=== PATIENT | female | born 1980 | race Two or more races ===

== ENCOUNTER 2024-07-29 01:43 | Inpatient (IN) | payer MEDICAID, SELFPAY ==
[2024-07-29] VITALS (40 sets, daily range): BP systolic 129–196; BP diastolic 80–141; PULSE 101–138; RESP 13–100; TEMP 34.7–37.3; O2SAT 99–100; BMI 23.1
--- NOTE | 2024-07-29 01:54 | EDNOTE_ITS ---
ED Weakness RME/HPI General Chief complaint: Dizziness Stated complaint: DIZZINESS, UNABLE TO SLEEP X1 WEEKS Time Seen by Provider: 07/29/24 03:04 Arrival date/time: 07/29/24 01:43 RME / HPI RME / HPI Narrative: Dr. Rivers?s Main ED Evaluation: 44yo female with a history of prediabetes, not on any medications BIB her presents to the ED for a chief complaint of generalized weakness x 2 days. Patient states she has been unable to keep anything down for the last 2 days. Patient reports having associated body aches. states the patient initially did not want to come in, but ultimately did after she continued to get more weak. Patient denies any fever, chills, diarrhea or any other associated symptoms. Denies any tobacco, alcohol or illicit drug use. NKA. Related Data Home Medications ?Medication ?Instructions ?Recorded ?Confirmed No Known Home Medications 07/29/2407/11 Allergies Allergy/AdvReac Type Severity Reaction Status Date / Time No Known Allergies Allergy Verified 07/29/24 01:45 Review of Systems Review of Systems Systems Reviewed: All systems reviewed, normal except as documented Past Medical History Past Medical History NEUROLOGIC: Negative Neurological Disorders CARDIAC: Negative Cardiac Disorders or Congestive Heart Failure RESPIRATORY: Negative Chronic Obstructive Pulmonary Disease (COPD) GASTROINTESTINAL: Negative Gastrointestinal Disorders, Hepatitis or Colorectal Cancer GENITOURINARY: Negative Genitourinary Disorders, Renal Disease or Prostate Cancer REPRODUCTIVE: Negative Breast Cancer or Testicular Cancer MUSCULOSKELETAL: Negative Musculoskeletal Disorders or Bone Cancer ENDOCRINE: Negative Endocrine Disorders, Diabetes Mellitus Type 1 or Diabetes Mellitus Type 2 HEMATOLOGIC: Negative Blood Disorders OTHER HISTORY: Negative Hospitalization, Autoimmune Disease, Down Syndrome, Developmental Delay, Shingles, Falls, Blood Transfusions, Blood Transfusion Reaction, Anesthesia Reactions, Organ Transplant, Chemotherapy, Radiation Th erapy, Hyperbaric Therapy, MRSA, VRSA, Vancomycin-Resistant Enterococci, Human Immunodeficiency Virus (HIV), Chicken Pox, Measles, Mumps, Rubella (Vietnamese Measles), Pertussis, Clostridium Difficile, Breast Cancer, Cervical Cancer, Colorectal Cancer, Lung Cancer, Ovarian Cancer, Prostate Cancer or Testicular Cancer Family History FAMILY HISTORY: Negative Family Psychiatric Problems, Family Respiratory Disorders, Family Cardiac Disorders, Family Gastrointestinal Problems, Family Cancer, Family Surgery or Family Anesthesia Reaction Surgical History SURGICAL: Negative Section or Organ Transplant Social History SMOKING STATUS: Never smoker SECOND HAND EXPOSURE: No ED Exam Narrative Physical exam: GEN. APPEARANCE: The patient is alert awake oriented X-3 in acute distress, tachypneic, uncomfortable VITALS: All vitals were reviewed and the pulse ox is % on room air which is normal according to my interpretation. HEENT: Normocephalic, atraumatic. Pupils are equal and reactive. Oral mucosa is very dry, has sweet odor on breath. Patent Nares NECK: Supple, nontender, no thyromegaly, no meningismus, no JVD CHEST: Symmetrical, atraumatic, and with equal expansion , Nontender on palpation no deformity and no crepitus. CARDIOVASCULAR: Heart regular rhythm no murmur or gallop rub or extra beats. LUNGS: Clear to auscultation bilaterally with symmetrical chest rise. No laboring tachypnea or wheezing. No intercostal subcostal retraction. No rales and no rhonchi. ABDOMEN: Soft, flat, nontender to palpation, no guarding or rebound tenderness. There are no abnormal masses palpated. Active and normal bowel sounds. EXTREMITIES: Nontender. No edema. No cyanosis. Patient is able to move all 4 extremities well, with full ROM and good CSM. SKIN: Warm and dry, no jaundice or rashes noted. NEURO: Patient is DOHERTY x 4, Cranial nerves II through XII grossly intact. There is no focal neurologic deficits noted. GCS is 15 however slow to respond, PNS and OUTBOARD MOTOR TESTER appear grossly intact. PSYCHIATRIC: Patient is in normal mood and affect. Course Course Course Narrative: CXR is ordered for determining the etiology of weakness. Quality Measures none Orders Category Date Time Status Bedside Blood Glucose Q1H Care 07/29/24 03:28 Active Bleacher Kraft Pulp Q4H Care 07/29/24 03:28 Active Bleacher Kraft Pulp Q4H START 00 Care 07/29/24 02:47 Active DKA Protocol QSHIFT Care 07/29/24 03:28 Active Fingerstick [Bedside Blood Glucose] Q1HR Care 07/29/24 03:10 Active Del Castillo [Urinary Catheter] QS Care 07/29/24 02:05 Active IV [Insert IV] NOW Care 07/29/24 02:05 Active Initiate Warming Therapy NOW Care 07/29/24 04:20 Active Intake and Output Q1H Care 07/29/24 03:30 Ordered Intake and Output Q1H Care 07/29/24 04:30 Ordered Intake and Output Q1H Care 07/29/24 05:30 Ordered Intake and Output Q1H Care 07/29/24 06:30 Ordered Intake and Output Q1H Care 07/29/24 07:30 Ordered Intake and Output Q1H Care 07/29/24 08:30 Ordered Intake and Output Q1H Care 07/29/24 09:30 Ordered Intake and Output Q1H Care 07/29/24 10:30 Ordered Intake and Output Q1H Care 07/29/24 11:30 Ordered Intake and Output Q1H Care 07/29/24 12:30 Ordered Intake and Output Q1H Care 07/29/24 13:30 Ordered Intake and Output Q1H Care 07/29/24 14:30 Ordered Intake and Output Q1H Care 07/29/24 15:30 Ordered Intake and Output Q1H Care 07/29/24 16:30 Ordered Intake and Output Q1H Care 07/29/24 17:30 Ordered Intake and Output Q1H Care 07/29/24 18:30 Ordered Intake and Output Q1H Care 07/29/24 19:30 Ordered Intake and Output Q1H Care 07/29/24 20:30 Ordered Intake and Output Q1H Care 07/29/24 21:30 Ordered Intake and Output Q1H Care 07/29/24 22:30 Ordered Intake and Output Q1H Care 07/29/24 23:30 Ordered Notify provider NEEDED Care 07/29/24 03:28 Active Strict Intake and Output Routine Care 07/29/24 02:47 Ordered Referral Registered Dietitian Routine Cons 07/29/24 03:[address] head/brain wo con Routine Exams 07/29/24 04:58 Ordered CXR [XR chest 1V] Stat Exams 07/29/24 01:59 Taken US renal BI Stat Exams 07/29/24 01:59 Taken Beta Hydroxybutyrate Stat Lab 07/29/24 02:10 Completed Blood Culture (Lab) Stat Lab 07/29/24 02:58 Received CBC Stat Lab 07/29/24 02:10 Completed CMP [Comprehensive Metabolic Panel] Stat Lab 07/29/24 02:10 Completed Drug Screen,Urine Stat Lab 07/29/24 02:08 Completed HCG,Qualitative Serum Stat Lab 07/29/24 02:10 Completed Lactate (Lactic Acid) Stat Lab 07/29/24 02:10 Results Lipase Stat Lab 07/29/24 02:10 Completed PAM [Alcohol, Blood Medical] Stat Lab 07/29/24 02:10 Completed Path Review Blood Smear Stat Lab 07/29/24 02:10 Completed Procalcitonin Stat Lab 07/29/24 02:10 Completed Renal Function Panel Q4 Lab 07/29/24 07:30 Ordered Renal Function Panel Q4 Lab 07/29/24 11:30 Ordered Renal Function Panel Q4 Lab 07/29/24 15:30 Ordered Renal Function Panel Q4 Lab 07/29/24 19:30 Ordered Renal Function Panel Q4 Lab 07/29/24 23:30 Ordered Renal Function Panel Q4 Lab 07/30/24 03:30 Ordered Renal Function Panel Q4 Lab 07/30/24 07:30 Ordered Renal Function Panel Q4 Lab 07/30/24 11:30 Ordered Renal Function Panel Q4 Lab 07/30/24 15:30 Ordered Renal Function Panel Q4 Lab 07/30/24 19:30 Ordered Renal Function Panel Q4 Lab 07/30/24 23:30 Ordered Renal Function Panel Q Lab 07/31/24 03:30 Ordered Troponin I Stat Lab 07/29/24 02:10 Completed UA [Urinalysis] Stat Lab 07/29/24 02:08 Completed VBG [Venous Blood Gas] Stat Lab 07/29/24 02:10 Completed VBG [Venous Blood Gas] Stat Lab 07/29/24 04:37 Completed Dextrose 5%-Lactated Ringers [D5-Lr] 1,000 ml Med 07/29/24 03:28 Active Pot Chl Additive [KCl Additive] 40 meq IV 250 mls/hr Dextrose 5%-Lactated Ringers [D5-Lr] 1,000 ml Med 07/29/24 03:28 Active IV 250 mls/hr Dextrose 50% Syr [D50w Syringe Abboject] Med 07/29/24 03:28 Active 25 ml IV [id number] PRN Dextrose 50% Syr [D50w Syringe Abboject] Med 07/29/24 02:49 Discontinued 50 ml IVP X1 ONE Dextrose 50% Syr [D50w Syringe Abboject] Med 07/29/24 02:49 Discontinued 50 ml IVP X1 ONE KCL 20 mEq/L in D5-LR Med 07/29/24 03:28 Active 20 meq in 1,000 ml IV 250 mls/hr Magnesium Sulfate 2 GM Ivpb [Magnesium Sulfate Ivpb] [facility] 07/29/24 03:28 Active 2 gm in 50 ml IV 25 mls/hr Ondansetron Inj [Zofran Inj] [facility] 07/29/24 01:56 Discontinued 4 mg IV X1 ONE POT PHOS 15 mMol in NS 250 ML [Pot Phos 15 mMol in NS Med 07/29/24 03:28 Active 250 ml] 15 mmol in 250 ml IV PRN POTASSIUM CHL 10 mEq IVPB [Kcl Ivpb] [facility] 07/29/24 03:28 Active 10 meq in 100 ml IV 100 mls/hr POTASSIUM CHL 10 mEq IVPB [Kcl Ivpb] [facility] 07/29/24 03:28 Active 10 meq in 100 ml IV PRN Pre-Mixed [Pre-mixed Bag] [address] [facility] 07/29/24 03:28 Active Insulin Reg 100 Units/100 ml [Myxredlin] 100 unit IV 0.1 unit/kg/hr Ringers Lactated 1000 ml [Lactated Ringers] 1,[address] [facility] 07/29/24 03:28 Active Pot Chl Additive [KCl Additive] 20 meq IV 250 mls/hr Ringers Lactated 1000 ml [Lactated Ringers] 1,[address] [facility] 07/29/24 03:28 Active Pot Chl Additive [KCl Additive] 40 meq IV 250 mls/hr Ringers Lactated 1000 ml [Lactated Ringers] 1,[address] [facility] 07/29/24 03:28 Active IV 250 mls/hr Ringers Lactated 1000 ml [Lactated Ringers] 1,[address] [facility] 07/29/24 01:54 Discontinued IV 999 mls/hr Ringers Lactated 1000 ml [Lactated Ringers] 1,[address] [facility] 07/29/24 01:57 Discontinued IV 999 mls/hr Ringers Lactated 1000 ml [Lactated Ringers] 1,[address] [facility] 07/29/24 02:47 D iscontinued IV 999 mls/hr Ringers Lactated 1000 ml [Lactated Ringers] 1,[address] [facility] 07/29/24 02:52 Discontinued IV 999 mls/hr Ringers Lactated 1000 ml [Lactated Ringers] 1,[address] [facility] 07/29/24 03:05 Discontinued IV 999 mls/hr Ringers Lactated 1000 ml [Lactated Ringers] 1,[address] [facility] 07/29/24 04:07 Discontinued IV 999 mls/hr Sodium Bicarb 8.4% 50ml Vial* Med 07/29/24 02:50 Discontinued 50 meq IV X1 ONE Sodium Bicarb 8.4% 50ml Vial* Med 07/29/24 02:51 Discontinued 50 meq IV X1 ONE Sodium Bicarb 8.4% SYR Med 07/29/24 02:45 Discontinued 100 ml IV .STK-MED ONE Sodium Bicarb 8.4% SYR Med 07/29/24 02:53 Discontinued 100 ml IV X1 ONE Sodium Bicarb 8.4% SYR Med 07/29/24 03:28 Active 50 ml IV Q4HR PRN Sodium Chloride 0.9% 1000 ml [Ns] 1,000 ml Med 07/29/24 04:44 Discontinued IV 999 mls/hr Sodium Chloride 0.9% 250 ml [Ns] 250 ml Med 07/29/24 03:28 Active Sod Phos Additive [NaPhos Additive] 15 mmol IV 62.5 mls/hr Vancomycin Inj 1,000 mg Med 07/29/24 04:42 Active Sodium Chloride 0.9% 250 ml [Ns] 250 ml IV X1 cefTRIAXone/D5w 1gm IV premix [Rocephin/D5w 1gm IV Med 07/29/24 02:48 Disc ontinued premix] 1 gm in 50 ml IV NOW cefTRIAXone/D5w 1gm IV premix [Rocephin/D5w 1gm IV Med 07/29/24 04:57 Discontinued premix] 1 gm in 50 ml IV X1 metroNIDAZOLE/NS 500 MG IVPB [Flagyl 500 mg IV] Med 07/29/24 04:43 Discontinued 500 mg in 100 ml IV X1 Vital Signs Vital signs: Vital Signs Temperature 98.0 F 07/29/24 02:03 Pulse Rate 130 H 07/29/24 02:03 Respiratory Rate 29 H 07/29/24 02:03 Blood Pressure 170/115 H 07/29/24 02:03 Pulse Oximetry (%) 99 07/29/24 02:03 Weakness MDM Narrative MDM Narrative:: Scribe Attestation: 07/29/24 - I, Loyda Chaney am scribing for and in the presence of Dr. Rivers. Blood sugar is greater than 600 on ED arrival. Labs, 2L LR, and Zofran ordered. Concern for possible DKA, HHS, acute infection metabolic disturbance. Patient without any focal neurodeficits, less likely acute CVA, meningitis encephalitis. Patient with chest discomfort, concern for pneumonia viral syndrome. Also concern for acute renal failure. Ordered labs sepsis fluids broad-spectrum and biotics renal ultrasound and medications for symptom relief. 0247: Sepsis alert initiated. Orders made at this time are congruent with ED Adult Sepsis Order List. Re-evaluation is to be completed. LR started at 0211. 0332: Sepsis reassessment performed consisting of lab review, vitals, physical exam including auscultation of heart, lungs, and visual evaluation of capillary refills, mucosal membranes and extremities. 0333: Attempted to call the hospitalist, Dr. Maravilla, without success. 0338: Discussed case with the resident physician, attending Dr. Maravilla from Hospitalist service regarding admission. Discussed patients ED course, exam findings, labs, and radiology results. The Hospitalist agrees to accept the patient for admission. 0433: Patient is awake, alert, and mentating well. She is communicating more appropriately, GCS 15. She is still tachypneic in the mid 20s. Insulin is going in. 0505: Patient continues to be awake, alert, and mentating well. Patient's color has improved, respiratory rate in the mid 20s. Repeat blood gas, patient pH slightly improved, patient is on the insulin drip, clinically continues to improve, states that she feels improvement. Patient was hypothermic, Franny hugger placed. Patient admitted to the ICU for management of DKA. Patient data External records reviewed:: [facility] previous records (Per chart review, patient has no relevant previous ED visits.) Clinical information provided by:: patient and spouse Social determinants that could affect healthcare access:: none Patient has the following chronic illnesses:: none How is presenting disease/condition affected by chronic disease/condition?: no chronic disease Evaluation data The following diagnostics were reviewed and interpreted by me:: lab results, radiology exam(s) and EKG tracing(s) Lab and/or radiology exams considered but not ordered:: none Interpretation Summary: WBC elevated 36.5, VBG shows low pH of 6.95, pCO2 low 12; Beta Hydroxybutyrate 3.6, UA shows 1+ protein, 4+ glucose, 4+ ketones, positive leukocyte esterase, 22 WBCs; UDS negative, Blood Alcohol negative, Creatinine 2.3, BUN 60, Lactic Acid 3.5, Sodium 132, CO2 less than 10, Troponin normal, HCG negative. CXR shows no infiltrates, no pneumothorax, no widened mediastinum, according to my interpretation. EKG done at 0158, sinus tachycardia, rate of 131, normal intervals, wandering baseline, no acute ischemia, according to my interpretation. Telerad Preliminary Report Draft Patient: ALTA MENDIOLA Record#: [id number] Birthdate: 1980 Age/Sex: 44 / F Location: [facility] Attending Dr: Ordering Physician: Date of Service: Procedure(s): Accession Number(s): cc: ~ Renal/Retroperitoneal ultrasound. July 29, 2024 0209 hours Clinical history: Kidneys and bladder. Technique: Duplex scan of the bilateral renal arterial and venous tree was performed utilizing 2D grayscale imaging, Doppler spectral analysis and color flow. Comparison: No prior study is available for comparison. Findings: The patient is breathing heavily and not coherent. Right: The right kidney measures 11.2 x 5 x 6.5 cm with cortical thickness of 1.8 cm and is unremarkable. There is no hydronephrosis or renal calculus. The corticomedullary differentiation is maintained. Left: The left kidney measures 13.1 x 6.8 x 6.1 cm with cortical thickness of 2.2 cm and is unremarkable. There is no hydronephrosis or renal calculus. The corticomedullary differentiation is maintained. A Del Castillo catheter is seen in the inferior portion of urinary bladder. The prevoid bladder volume is 131.53 mL. The patient is unable to void. Bilateral ureteric jets are demonstrated. Impression: No evidence of renal calculus or hydronephrosis. Other findings as described above. Report Electronically Signed By: Theodora Reis 07/29/2024 3:30:03 AM Medications / Prescriptions Medications or Prescriptions considered but not ordered:: none Medication administrations:: Medication Administration History Acetaminophen (Acetaminophen 325 Mg Tablet) 650 mg PO Q4HR PRN PRN Reason: PAIN SCALE 1-3 (mild Stop: 08/28/24 04:59 Acetaminophen (Acetaminophen Supp 650 Mg Supp) 650 mg WV Q4HR PRN PRN Reason: PAIN SCALE 1-3 (mild Stop: 08/28/24 04:59 Dextrose (Dextrose 50%-Water Inj 50 Ml Syringe) 25 ml IV PRNMRX1 PRN PRN Reason: Blood Sugar - Low Dextrose (Dextrose 50%-Water Inj 50 Ml Syringe) 25 ml IV PRNMRX1 PRN PRN Reason: Blood Sugar - Low Heparin Sodium (Porcine) (Heparin Sod Inj 5000 Unit/Ml Vial) 5,000 unit SC Q8HR EDE Stop: 08/12/24 05:59 Potassium Chloride (Kcl Ivpb) 10 meq in 100 mls @ 100 mls/hr IV .Q1H PRN PRN Reason: IF POTASSIUM LESS THAN 3.3 Stop: 08/28/24 03:27 Magnesium Sulfate (Magnesium Sulfate Ivpb) 2 gm in 50 mls @ 25 mls/hr IV .Q2H PRN PRN Reason: PER DKA PROTOCOL Stop: 08/28/24 03:27 Insulin Human Regular 100 unit (/ IV Miscellaneous Supplies) 100 mls @ 6.622 mls/hr IV .Q15H7M PRN; Protocol PRN Reason: PER PROTOCOL Stop: 08/28/24 03:27 Last Titration: 07/29/24 05:02 Dose: 0.1 unit/kg/hr, 6.622 mls/hr Documented By: CVL Co-signed By: JULIO Admin: 07/29/24 04:08 Dose: 0.1 unit/kg/hr, 6.622 mls/hr Documented By: CVL Co-signed By: ALVIN Dextrose/Lactated Ringer's (D5-Lr) 1,000 mls @ 250 mls/hr IV .Q4H PRN PRN Reason: PER PROTOCOL Stop: 08/28/24 03:27 Lactated Ringer's (Lactated Ringers) 1,000 mls @ 250 mls/hr IV .Q4H PRN PRN Reason: PER PROTOCOL Stop: 07/30/24 03:27 Potassium Chloride 20 meq/ (Lactated Ringer's) 1,010 mls @ 250 mls/hr IV .Q4H3M PRN PRN Reason: K LEVEL 3.3 TO 5.3mM/L Stop: 08/28/24 03:27 Potassium Chloride 40 meq/ (Lactated Ringer's) 1,020 mls @ 250 mls/hr IV .Q4H5M PRN PRN Reason: K LEVEL < 3.3 mM/L Stop: 08/28/24 03:27 Potassium Chloride 40 meq/ (Dextrose/Lactated Ringer's) 1,020 mls @ 250 mls/hr IV .Q4H5M PRN PRN Reason: K LEVEL < 3.3mM/L Stop: 08/28/24 03:27 Potassium Cl/Dextrose/Lact Ringer's (Kcl 20 Meq/L In D5-Lr) 20 meq in 1,000 mls @ 250 mls/hr IV .Q4H PRN PRN Reason: K LEVEL 3.3 TO 5.3 mM/L Stop: 08/28/24 03:27 Potassium Chloride (Kcl Ivpb) 10 meq in 100 mls @ 50 mls/hr IV PRN PRN PRN Reason: K LEVEL 3.3 to 5.3 & BG > 200 Stop: 08/28/24 03:27 Last Admin: 07/29/24 04:22 Dose: 50 mls/hr Documented By: CVL Potassium Phosphate (Pot Phos 15 Mmol In Ns 250 Ml) 15 mmol in 250 mls @ 62.5 mls/hr IV PRN PRN PRN Reason: Phosphate <= 1mg/dL Stop: 08/28/24 03:27 Sodium Phosphate 15 mmol/ (Sodium Chloride) 255 mls @ 62.5 mls/hr IV .Q4H5M PRN PRN Reason: Phosphate <= 1mg/dL and K> than 5.3 Stop: 08/28/24 03:27 Vancomycin HCl 1,000 mg/ (Sodium Chloride) 250 mls @ 150 mls/hr IV X1 ONE Stop: 07/29/24 06:21 Magnesium Sulfate (Magnesium Sulfate Ivpb) 2 gm in 50 mls @ 25 mls/hr IV .Q2H PRN PRN Reason: PER DKA PROTOCOL Stop: 08/28/24 04:59 Dextrose/Lactated Ringer's (D5-Lr) 1,000 mls @ 250 mls/hr IV .Q4H PRN PRN Reason: PER PROTOCOL Stop: 08/28/24 04:59 Lactated Ringer's (Lactated Ringers) 1,000 mls @ 250 mls/hr IV .Q4H PRN PRN Reason: PER PROTOCOL Stop: 07/30/24 04:59 Potassium Chloride 20 meq/ (Lactated Ringer's) 1,010 mls @ 250 mls/hr IV .Q4H3M PRN PRN Reason: K LEVEL 3.3 TO 5.3mM/L Stop: 08/28/24 04:59 Potassium Chloride 40 meq/ (Lactated Ringer's) 1,020 mls @ 250 mls/hr IV .Q4H5M PRN PRN Reason: K LEVEL < 3.3 mM/L Stop: 08/28/24 04:59 Potassium Chloride 40 meq/ (Dextrose/Lactated Ringer's) 1,020 mls @ 250 mls/hr IV .Q4H5M PRN PRN Reason: K LEVEL < 3.3mM/L Stop: 08/28/24 04:59 Potassium Cl/Dextrose/Lact Ringer's (Kcl 20 Meq/L In D5-Lr) 20 meq in 1,000 mls @ 250 mls/hr IV .Q4H PRN PRN Reason: K LEVEL 3.3 TO 5.3 mM/L Stop: 08/28/24 04:59 Potassium Chloride (Kcl Ivpb) 10 meq in 100 mls @ 50 mls/hr IV PRN PRN PRN Reason: K LEVEL 3.3 to 5.3 & BG > 200 Stop: 08/28/24 04:59 Potassium Phosphate (Pot Phos 15 Mmol In Ns 250 Ml) 15 mmol in 250 mls @ 62.5 mls/hr IV PRN PRN PRN Reason: Phosphate <= 1mg/dL Stop: 08/28/24 04:59 Sodium Phosphate 15 mmol/ (Sodium Chloride) 255 mls @ 62.5 mls/hr IV .Q4H5M PRN PRN Reason: Phosphate <= 1mg/dL and K> than 5.3 Stop: 08/28/24 04:59 Sodium Bicarbonate 88.23 meq/ (Dextrose) 588.23 mls @ 100 mls/hr IV .Q5H53M EDE Stop: 08/28/24 05:08 Magnesium Hydroxide (Milk Of Magnesia Susp 30 Ml Udc) 30 ml PO QDAY PRN PRN Reason: CONSTIPATION Stop: 08/28/24 04:59 Ondansetron HCl (Ondansetron Inj 2 Mg/Ml Inj 2 Ml) 4 mg IV Q6HR PRN PRN Reason: NAUSEA OR VOMITING Stop: 08/28/24 04:59 Pantoprazole Sodium (Pantoprazole Inj 40 Mg Vial) 40 mg IVP QDAY EDE Stop: 08/28/24 08:59 Sodium Bicarbonate (Sodium Bicarb Inj 8.4% Syr 50 Ml Syringe) 50 ml IV Q4HR PRN PRN Reason: For ph <= to 7.0 Stop: 08/28/24 03:27 Sodium Bicarbonate (Sodium Bicarb Inj 8.4% Syr 50 Ml Syringe) 50 ml IV Q4HR PRN PRN Reason: For ph <= to 7.0 Stop: 08/28/24 04:59 Sodium Bicarbonate (Sodium Bicarb Inj 8.4% Syr 50 Ml Syringe) 50 ml IV X1 ONE Stop: 07/29/24 05:10 Discontinued Medications Dextrose (Dextrose 50%-Water Inj 50 Ml Syringe) 50 ml IVP X1 ONE Stop: 07/29/24 02:50 Dextrose (Dextrose 50%-Water Inj 50 Ml Syringe) 50 ml IVP X1 ONE Stop: 07/29/24 02:50 Lactated Ringer's (Lactated Ringers) 1,000 mls @ 999 mls/hr IV .Q1H1M ONE Stop: 07/29/24 02:57 Last Infusion: 07/29/24 03:02 Dose: Infused Documented By: Admin: 07/29/24 02:12 Dose: 999 mls/hr Documented By: CVL Lactated Ringer's (Lactated Ringers) 1,000 mls @ 999 mls/hr IV .Q1H1M ONE Stop: 07/29/24 02:54 Last Infusion: 07/29/24 03:02 Dose: Infused Documented By: Admin: 07/29/24 02:11 Dose: 999 mls/hr Documented By: CVL Lactated Ringer's (Lactated Ringers) 1,000 mls @ 999 mls/hr IV .Q1H1M ONE Stop: 07/29/24 03:47 Last Infusion: 07/29/24 04:13 Dose: Infused Documented By: Admin: 07/29/24 02:59 Dose: 999 mls/hr Documented By: CVL Ceftriaxone Sodium/Dextrose (Rocephin/D5w 1gm Iv Premix) 1 gm in 50 mls @ 100 mls/hr IV NOW ONE Stop: 07/29/24 03:17 Last Infusion: 07/29/24 03:41 Dose: Infused Documented By: Admin: 07/29/24 03:10 Dose: 100 mls/hr Documented By: CVL Lactated Ringer's (Lactated Ringers) 1,000 mls @ 999 mls/hr IV .Q1H1M ONE Stop: 07/29/24 03:52 Last Infusion: 07/29/24 04:13 Dose: Infused Documented By: Admin: 07/29/24 03:00 Dose: 999 mls/hr Documented By: CVL Lactated Ringer's (Lactated Ringers) 1,000 mls @ 999 mls/hr IV .Q1H1M ONE Stop: 07/29/24 04:05 Last Infusion: 07/29/24 04:52 Dose: Infused Documented By: Admin: 07/29/24 04:05 Dose: 999 mls/hr Documented By: CVL Lactated Ringer's (Lactated Ringers) 1,000 mls @ 999 mls/hr IV .Q1H1M ONE Stop: 07/29/24 05:07 Last Infusion: 07/29/24 05:05 Dose: Infused Documented By: Admin: 07/29/24 04:13 Dose: 999 mls/hr Documented By: CVL Metronidazole (Flagyl 500 Mg Iv) 500 mg in 100 mls @ 100 mls/hr IV X1 ONE Stop: 07/29/24 05:42 Last Admin: 07/29/24 05:36 Dose: 100 mls/hr Documented By: CVL Sodium Chloride (Ns) 1,000 mls @ 999 mls/hr IV .Q1H1M ONE Stop: 07/29/24 05:44 Last Infusion: 07/29/24 05:25 Dose: Infused Documented By: Admin: 07/29/24 04:53 Dose: 999 mls/hr Documented By: CVL Ceftriaxone Sodium/Dextrose (Rocephin/D5w 1gm Iv Premix) 1 gm in 50 mls @ 100 mls/hr IV X1 ONE Stop: 07/29/24 05:26 Ondansetron HCl (Ondansetron Inj 2 Mg/Ml Inj 2 Ml) 4 mg IV X1 ONE; Protocol Stop: 07/29/24 01:57 Last Admin: 07/29/24 02:46 Dose: 4 mg Documented By: CVL Sodium Bicarbonate (Sodium Bicarb Inj 8.4% 1 Meq/Ml 50 Ml Vial) 50 meq IV X1 ONE Stop: 07/29/24 02:51 Last Admin: 07/29/24 03:41 Dose: Not Given Documented By: CVL Non-Admin Reason: Duplicate Medication on eMAR Sodium Bicarbonate (Sodium Bicarb Inj 8.4% 1 Meq/Ml 50 Ml Vial) 50 meq IV X1 ONE Stop: 07/29/24 02:52 Last Admin: 07/29/24 03:41 Dose: Not Given Documented By: CVL Non-Admin Reason: Duplicate Medication on eMAR Sodium Bicarbonate (Sodium Bicarb Inj 8.4% Syr 50 Ml Syringe) 100 ml IV X1 ONE Stop: 07/29/24 02:54 Last Admin: 07/29/24 02:58 Dose: 100 ml Documented By: CVL Sodium Bicarbonate (Sodium Bicarb Inj 8.4% Syr 50 Ml Syringe) Confirm Administered Dose 100 ml IV .STK-MED ONE Stop: 07/29/24 02:46 Last Admin: 07/29/24 02:56 Dose: Not Given Documented By: AC Non-Admin Reason: Override Medication Sodium Bicarbonate (Sodium Bicarb Inj 8.4% Syr 50 Ml Syringe) 50 ml IV X1 ONE Stop: 07/29/24 05:02 Last Admin: 07/29/24 05:18 Dose: 50 ml Documented By: CVL Comments: FUSHED FOR 5MIN AT IV LOCK AT RIGHT HAND Sodium Bicarbonate (Sodium Bicarb Inj 8.4% Syr 50 Ml Syringe) 50 ml IV X1 ONE Stop: 07/29/24 05:03 Last Admin: 07/29/24 05:29 Dose: Not Given Documented By: CVL Non-Admin Reason: Medication Not Available Sodium Bicarbonate (Sodium Bicarb Inj 8.4% 1 Meq/Ml 50 Ml Vial) 50 meq IV X1 ONE Stop: 07/29/24 05:31 Last Admin: 07/29/24 05:31 Dose: 50 meq Documented By: CVL Comments: pushed 5 min at iv lock at right hand see above Consultations Consultation(s) initiated? (list below): Yes Diagnosis Weakness Differential Diagnosis: dehydration and other (DKA, hyperosmolar state, hyperglycemia) Most likely diagnosis given after review of the tests above:: DKA, abdominal pain, chest pain, dehydration Admission Indicated Admission indicated?: indicated Admission Request Was there a request for admission?: Yes Admission Attestation Admission request attestation: Discussed case with [] from Hospitalist service regarding admission. Discussed patients ED course, exam findings, labs, and radiology results. The Hospitalist [agrees,declines] to accept the patient for admission. Disposition Plan Disposition Plan: Admit Critical Care Time Critical Care Time Critical Care Time: Yes Total Critical Care Time (min.): 60 Attestation: The high probability of sudden, clinically significant deterioration in the patient?s condition required the highest level of my preparedness to intervene urgently. The services I provided to this patient were to treat and/or prevent clinically significant deterioration. Services included the following: chart data review, reviewing nursing notes and/or old charts, documentation time, [employer] sales consultant collaboration regarding findings and treatment options, medication orders and management, direct patient care, vital sign assessments and ordering, interpreting and reviewing diagnostic studies and lab tests. Aggregate critical care time includes only time during which I was engaged in work directly related to the patient?s care, as described above, whether at bedside or elsewhere in the Emergency Department. It did not include time spent performing other reported procedures or the services of residents, students, nurses or physician assistants. Discharge Plan Plan Patient Disposition: Admit Acute Care w/in Hospital Problem List Clinical Impression: DKA (diabetic ketoacidosis), Abdominal pain, Chest pain, Dehydration
--- NOTE | 2024-07-29 01:59 | XR_ITS ---
Examination: Retroperitoneal ultrasound, complete Technique: Multiple high resolution grayscale images of the retroperitoneum obtained, including kidneys and bladder. Exam date and time:July 29, 2024 0209 hours INDICATIONS: Diabetic, acute renal insufficiency today FINDINGS: Right kidney 11.2 cm renal cortex 1.8 cm Left kidney 13.1 cm renal cortex 2.2 cm No hydronephrosis or renal calculi No bladder mass, urinary Del Castillo catheter present Bladder prevoid volume 131.5 cc IMPRESSION: No hydronephrosis or renal calculi
--- NOTE | 2024-07-29 01:59 | XR_ITS ---
Examination: AP chest single view TECHNIQUE: AP portable upright chest single view Date and time: July 29, 2024 0220 hours INDICATIONS: Chest pain today FINDINGS: Normal heart size. Lungs are clear. The osseous structures are intact IMPRESSION: No active disease
[2024-07-29] MEDS: RINGERS LACTATED 1000 ML 1,000 ML 999 ML IV ×9 (02:11→12:27)
[2024-07-29 02:19] LABS: Collection Type, Urine Clean Catch
[2024-07-29 02:22] LABS: Base Excess, Venous -28 (-3-3); O2 Saturation, Venous 97 % (96-97); PCO2, Venous 12 mmHg (36-56); PO2, Venous 110 mmHg (15-58); pH, Venous 6.95 (7.33-7.66)
[2024-07-29 02:29] LABS: Beta Hydroxybutyrate 3.6 mmol/L (<0.6)
[2024-07-29 02:39] LABS: Basophils % (Auto) 0 % (0-2.5); Eosinophils % (Auto) 0 % (0-10); Hematocrit 40.9 % (36.0-46.0); Hemoglobin 13.6 g/dL (12.0-16.0); Immature Granulocytes % (Auto) 7 % (0-0); Immature Granulocytes Auto 2.53 Thou/mm3 (0.00-0.00); Lymphocytes # (Auto) 1.7 Thou/mm3 (1.0-4.8); Lymphocytes % (Auto) 5 % (10-50); Mean Corpuscular HGB Conc 33.3 g/dl (31.0-37.0); Mean Corpuscular Hemoglobin 30.6 pg (25.0-35.0); Mean Corpuscular Volume 92 fL (80-100); Monocytes # (Auto) 1.2 Thou/mm3 (0.0-0.8); Monocytes % (Auto) 3 % (0-12); Neutrophils % (Auto) 85 % (37-80); Nucleated Red Blood Cell % 0 /100 WBC (0); Platelet Count 281 Thou/mm3 (140-440); RDW Standard Deviation 48.5 fL (36.4-46.3); Red Blood Count 4.44 Miln/mm3 (4.00-5.20)
[2024-07-29 02:45] LABS: White Blood Count 36.5 Thou/mm3 (3.6-11.0)
[2024-07-29] MEDS: ONDANSETRON INJ 2 MG/ML INJ 2 ML 4 MG IV (02:46)
[2024-07-29 02:47] LABS: Bilirubin,Urine Negative (Negative); Blood,Urine 2+ (Negative); Clarity,Urine Clear (Clear/Hazy); Color,Urine Lt-Yellow (Lt Yel-Yel); Glucose, Urine 4+ (Negative); Granular Casts,Urine < 1 /hpf (0-1); Ketones,Urine 4+ (Negative); Leukocyte Esterase,Urine Positive (Negative); Nitrite,Urine Negative (Negative); PH,Urine 5.5 (5.0-7.0); Protein,Urine 1+ (Neg - Trace); RBC,Urine 3 /hpf (0-3); Specific Gravity,Urine 1.018 (1.001-1.035); Squamous Epithelial Cell,Urine 1 /hpf (0-5); Urobilinogen,Urine Negative mg/dL (0.0-1.0); WBC,Urine 22 /hpf (0-5)
[2024-07-29 02:57] LABS: Lactate (Lactic Acid) 3.5 mMol/L (0.4-2.0)
[2024-07-29] MEDS: Sodium Bicarb Inj 8.4% SYR 50 ML SYRINGE 100 ML IV (02:58)
[2024-07-29 03:01] LABS: Amphetamine/Methamp Scrn,U Negative (Negative); Barbiturate Screen,Urine Negative (Negative); Benzodiazepines Screen,Urine Negative (Negative); Benzoylecgonine Screen, Ur Negative (Negative); Fentanyl Screen,Urine Negative (Negative); Opiate Screen,Urine Negative (Negative); THC Screen,Urine Negative (Negative)
[2024-07-29] MEDS: cefTRIAXone/D5w 1gm IV premix 1 GM/50 ML BAG IV ×2 (03:10→06:44)
[2024-07-29 03:17] LABS: HCG,Qualitative Serum Negative
[2024-07-29 03:19] LABS: Alanine Aminotransferase 10 U/L (10-49); Albumin, Serum 3.8 gm/dL (3.5-5.0); Albumin/Globulin Ratio 1.1 (1.2-2.2); Alcohol, Blood Medical < 3.0 mg/dL (0-10.0); Alkaline Phosphatase 195 U/L (46-116); Anion Gap 27 (7-16); Aspartate Amino Transferase < 10 U/L (0-34); BUN/Creatinine Ratio 26 Ratio (12-20); Bilirubin,Total 0.2 mg/dL (0.3-1.2); Blood Urea Nitrogen 60 mg/dL (9-23); Calcium 9.3 mg/dL (8.3-10.6); Calcium (Corrected) 9.5 mg/dL (8.5-10.1); Chloride 95 mMol/L (98-107); Creatinine (Component) 2.3 mg/dL (0.6-1.3); Globulin 3.6 gm/dL (2.3-3.5); Lipase 44 U/L (12-53); Potassium 4.1 mMol/L (3.4-5.1); Sodium 132 mMol/L (136-145); Total Protein 7.4 gm/dL (5.7-8.2); Troponin I < 0.020 ng/mL (0.0-0.045); eGFR 26 See Note
--- NOTE | 2024-07-29 03:30 | PRELIM_ITS ---
Renal/Retroperitoneal ultrasound. July 29, 2024 0209 hours Clinical history: Kidneys and bladder. Technique: Duplex scan of the bilateral renal arterial and venous tree was performed utilizing 2D grayscale imaging, Doppler spectral analysis and color flow. Comparison: No prior study is available for comparison. Findings: The patient is breathing heavily and not coherent. Right: The right kidney measures 11.2 x 5 x 6.5 cm with cortical thickness of 1.8 cm and is unremarkable. There is no hydronephrosis or renal calculus. The corticomedullary differentiation is maintained. Left: The left kidney measures 13.1 x 6.8 x 6.1 cm with cortical thickness of 2.2 cm and is unremarkable. There is no hydronephrosis or renal calculus. The corticomedullary differentiation is maintained. A Del Castillo catheter is seen in the inferior portion of urinary bladder. The prevoid bladder volume is 131.53 mL. The patient is unable to void. Bilateral ureteric jets are demonstrated. Impression: No evidence of renal calculus or hydronephrosis. Other findings as described above. Report Electronically Signed By: Theodora Reis 07/29/2024 3:30:03 AM [EST]
[2024-07-29 03:38] LABS: Carbon Dioxide < 10.0 mMol/L (20.0-31.0)
[2024-07-29 03:49] LABS: Path Review Blood Smear Sent to Pathologist
[2024-07-29] MEDS: INSULIN REG 100 UNITS/100 ML 100 UNIT in PRE-MIXED 1 BAG 6.622 UNIT IV ×2 (04:08→21:00)
[2024-07-29 04:12] LABS: Glucose > 700 mg/dL (74-106); Osmolality,Calculated 315 (275-295); Procalcitonin 7.46 ng/ml (0.0-0.49)
[2024-07-29] MEDS: POTASSIUM CHL 10 mEq IVPB 10 MEQ/100 ML BAG 50 MEQ IV (04:22)
[2024-07-29 04:47] LABS: Base Excess, Venous -26 (-3-3); O2 Saturation, Venous 79 % (96-97); PCO2, Venous 20 mmHg (36-56); PO2, Venous 54 mmHg (15-58); pH, Venous 6.97 (7.33-7.66)
[2024-07-29] MEDS: SODIUM CHLORIDE 0.9% 1000 ML 1,000 ML 999 ML IV (04:53)
--- NOTE | 2024-07-29 04:58 | XR_ITS ---
Examination: CT brain head without contrast. 2-D sagittal coronal reconstructions Date and time of exam:July 29, 2024 0620 hours INDICATIONS: Dizziness 1 week CTDI: vol (mGy):43.2 DLP: (mGycm):813 Technique: Multiple CT axial sections of the brain have been obtained, 5 mm slice thickness. Contrast has not been administered. 2-D sagittal, coronal reconstructions have been obtained Low dose protocols were performed. One or more of the following dose reduction techniques were used; automated exposure control, adjustment of the mA and/or KV according to patient size, use of iterative reconstruction technique. Findings: No significant ventricular enlargement. Intra-axial or extra-axial hemorrhage density is not seen. No mass effect or midline shift Basal cisterns are not remarkable. Fourth ventricle is midline. Cranial vault intact. Impression: Negative for acute hemorrhage, mass effect or midline shift Advise clinical correlation and follow up accordingly
--- NOTE | 2024-07-29 05:10 | PD.HHHP ---
Documentation for date of: 07/29/24 HPI - Hospitalist History of Present Illness History of present illness: A 44-year-old F with Hx of HTN, DM not on any medications presented to ED with altered mental status. History obtained from the patient and her at bedside. Patient' reports that he noted her to be confused however alert awake oriented yesterday when he came from work. She reports that she has been feeling tired, weak and fatigued since yesterday. Denies chest pain, shortness of breath, dizziness, syncope, nausea, vomiting, diarrhea, dysuria, bowel bladder dysfunction or any recent illness. Patient has elevated blood glucose levels during her 6 years ago however otherwise reports not taking any antidiabetic medications. No smoking, EtOH or substance use. 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 Review of Systems Narrative Review of Systems: 12 point review of systems is unremarkable except as above Meds Home Medications and Allergies Home Medications ?Medication ?Instructions ?Recorded ?Confirmed ?Type Vitamin * 1 tab PO QDAY #0 tabs 09/12/14 03/26/18 History aspirin 81 mg tablet,delayed 81 mg PO QDAY 03/26/18 03/26/18 History release (Aspir-) glyburide 2.5 mg tablet 2.5 mg PO QDAY 03/26/18 03/26/18 History Allergies Allergy/AdvReac Type Severity Reaction Status Date / Time No Known Allergies Allergy Verified 07/29/24 01:45 Exam Vital Signs Temp Pulse Resp BP Pulse Ox O2 Del Method 94.4 F L 121 H 24 H 163/88 H 100 Room Air 07/29/24 04:32 07/29/24 04:10 07/29/24 04:10 07/29/24 04:10 07/29/24 04:10 07/29/24 04:10 Additional findings Additional findings: Physical Exam: General: AO x 3, though confused, tachypneic HEENT: PERRL, No JVD, Neck supple. Dry oral mucosa Resp: CTA bilaterally, no wheezing or crackles/rhonchii Card: Regular Rhythm, Normal rate. No audible murmur Gatro: Soft nontender, nondistended, no organomegaly. Extr: No LE edema, ROM intact, Neuro: No focal neruological deficits. Results - Hospitalist Labs Diagrams: 07/29/24 02:10 07/29/24 02:10 Labs: Short CBC 07/29/24 Range/Units 02:10 WBC 36.5 H* (3.6-11.0) Thou/mm3 Hgb 13.6 (12.0-16.0) g/dL Hct 40.9 (36.0-46.0) % Plt Count 281 (140-440) Thou/mm3 BMP 07/29/24 02:10 Sodium 132 L Potassium 4.1 Chloride 95 L Carbon Dioxide < 10.0 L* BUN 60 H Creatinine 2.3 H Glucose > 700 H* Calcium 9.3 Cardiac Enzymes 07/29/24 Range/Units 02:10 Troponin I < 0.020 (0.0-0.045) ng/mL Liver Function 07/29/24 Range/Units 02:10 Total Bilirubin 0.2 L (0.3-1.2) mg/dL AST < 10 (0-34) U/L ALT 10 (10-49) U/L Alkaline Phosphatase 195 H (46-116) U/L Albumin 3.8 (3.5-5.0) gm/dL Urine 07/29/24 Range/Units 02:08 Urine Color Lt-Yellow (Lt Yel-Yel) Urine Clarity Clear (Clear/Hazy) Urine pH 5.5 (5.0-7.0) Ur Specific Carver 1.018 (1.001-1.035) Urine Protein 1+ A (Neg - Trace) Urine Glucose (UA) 4+ A (Negative) ABG Interpretation ABG results: 07/29/24 07/29/24 02:10 04:37 VBG pH 6.95 L 6.97 L VBG pCO2 12 L 20 L VBG pO2 110 H 54 D VBG Base Excess -28 L -26 L Assessment & Plan -Hospitalist Additional Assessment A 44-year-old female with history of HTN, DM presented with altered mental status tachypneic, tachycardic, hypertensive with severe metabolic acidosis secondary to diabetic ketoacidosis along with VIANCA and possible urinary tract infection. Patient is alert awake oriented however is confused likely related to metabolic encephalopathy. Started on IV insulin as per DKA protocol along with aggressive IVF resuscitation including 6 L of LR bolus given in the ED Active issues: Severe sepsis Diabetic ketoacidosis Acute encephalopathy-metabolic Acute kidney injury Urinary tract infection PLAN: - Encephalopathy likely metabolic in nature however will get CT head if no improvement after initial IVF resuscitation - Continue insulin as per DKA protocol along with aggressive IVF resuscitation (LR with KCl). - Administer NS bolus 2 L additionally will start on sodium bicarbonate infusion at 100 mL an hour - Will empirically start on broad-spectrum antibiotics with Rocephin metronidazole and Flagyl - Obtain blood cultures, urine cultures, repeat inflammatory markers and electrolytes. - Admit to ICU, continue telemetry and ins and out monitoring - Patient is at high risk of developing acute renal failure, repeat renal panel in 4 hours with serum electrolytes -Protonix for GI and Lovenox for DVT prophylaxis. Quality Measures Quality Measures none
[2024-07-29] MEDS: Sodium Bicarb Inj 8.4% SYR 50 ML SYRINGE IV ×2 (05:18→06:43)
[2024-07-29] MEDS: SODIUM BICARB INJ 8.4% 1 mEq/ML 50 ML VIAL 50 MEQ IV (05:31)
[2024-07-29] MEDS: metroNIDAZOLE/NS 500 MG IVPB 500 MG/100 ML BAG 100 MG IV (05:36)
[2024-07-29 05:43] LABS: Base Excess -24 (-3-3); HCO3 3 mEq/L (20-26); Inspired Oxygen, FIO2 21 %; O2 Saturation 99 % (91-98); PCO2 10 mmHg (32.0-48.0); PO2 131 mmHg (83-108)
[2024-07-29 05:50] LABS: pH, Arterial 7.12 (7.35-7.45)
[2024-07-29 05:52] LABS: Allen Test Performed/OK; Puncture Site Right Radial
[2024-07-29 05:53] LABS: Reflex Lactate? Y
[2024-07-29 05:55] LABS: Lactic Acid, 3 HR 5.2 mMol/L (0.4-2.0)
[2024-07-29] MEDS: Sodium Bicarb 8.4% 50ml Vial* 88.23 MEQ in DEXTROSE 5%-WATER 500 ML 100 MEQ IV (06:11)
[2024-07-29 06:13] LABS: Basophils # (Auto) 0.2 Thou/mm3 (0.0-0.2); Basophils % (Auto) 1 % (0-2.5); Eosinophils # (Auto) 0.1 Thou/mm3 (0.0-0.5); Eosinophils % (Auto) 0 % (0-10); Hematocrit 35.4 % (36.0-46.0); Hemoglobin 11.9 g/dL (12.0-16.0); Immature Granulocytes % (Auto) 8 % (0-0); Immature Granulocytes Auto 2.24 Thou/mm3 (0.00-0.00); Lymphocytes # (Auto) 0.8 Thou/mm3 (1.0-4.8); Lymphocytes % (Auto) 3 % (10-50); Mean Corpuscular HGB Conc 33.6 g/dl (31.0-37.0); Mean Corpuscular Hemoglobin 30.7 pg (25.0-35.0); Mean Corpuscular Volume 92 fL (80-100); Monocytes # (Auto) 0.3 Thou/mm3 (0.0-0.8); Monocytes % (Auto) 1 % (0-12); Neutrophils % (Auto) 88 % (37-80); Nucleated Red Blood Cell % 0 /100 WBC (0); Platelet Count 211 Thou/mm3 (140-440); RDW Standard Deviation 48.7 fL (36.4-46.3); Red Blood Count 3.87 Miln/mm3 (4.00-5.20); White Blood Count 29.6 Thou/mm3 (3.6-11.0)
[2024-07-29 06:20] LABS: Alanine Aminotransferase < 7 U/L (10-49); Albumin/Globulin Ratio 1.2 (1.2-2.2); Alkaline Phosphatase 149 U/L (46-116); Anion Gap 25 (7-16); Aspartate Amino Transferase < 10 U/L (0-34); BUN/Creatinine Ratio 29 Ratio (12-20); Bilirubin,Total 0.2 mg/dL (0.3-1.2); Blood Urea Nitrogen 47 mg/dL (9-23); Calcium 8.4 mg/dL (8.3-10.6); Calcium (Corrected) 9.2 mg/dL (8.5-10.1); Chloride 103 mMol/L (98-107); Creatinine (Component) 1.6 mg/dL (0.6-1.3); Globulin 2.5 gm/dL (2.3-3.5); Osmolality,Calculated 314 (275-295); Potassium 3.7 mMol/L (3.4-5.1); Sodium 138 mMol/L (136-145); Total Protein 5.5 gm/dL (5.7-8.2); eGFR 41 See Note
[2024-07-29 06:22] LABS: Carbon Dioxide < 10.0 mMol/L (20.0-31.0); Glucose 582 mg/dL (74-106)
--- NOTE | 2024-07-29 06:37 | PC.NURSE ---
REPORT GIVEN TO HERNANDEZ HENRY AT ICU.
[2024-07-29] MEDS: HEPARIN SOD INJ 5000 UNIT/ML VIAL SC (06:44)
[2024-07-29 07:42] LABS: Base Excess, Venous -21 (-3-3); O2 Saturation, Venous 93 % (96-97); PCO2, Venous 14 mmHg (36-56); PO2, Venous 66 mmHg (15-58); pH, Venous 7.17 (7.33-7.66)
[2024-07-29 08:03] LABS: Albumin, Serum 2.7 gm/dL (3.5-5.0); Anion Gap 27 (7-16); BUN/Creatinine Ratio 31 Ratio (12-20); Blood Urea Nitrogen 44 mg/dL (9-23); Calcium 7.6 mg/dL (8.3-10.6); Calcium (Corrected) 8.6 mg/dL (8.5-10.1); Chloride 109 mMol/L (98-107); Creatinine (Component) 1.4 mg/dL (0.6-1.3); Osmolality,Calculated 319 (275-295); Phosphorous 1.1 mg/dL (2.4-5.1); Potassium 2.8 mMol/L (3.4-5.1); Sodium 146 mMol/L (136-145); eGFR 48 See Note
[2024-07-29 08:19] LABS: Carbon Dioxide < 10.0 mMol/L (20.0-31.0); Cholesterol 147 mg/dL (132-200); Glucose 429 mg/dL (74-106); HDL Cholesterol < 5 mg/dL (40-60); Thyroid Stimulating Hormone 0.05 uIU/mL (0.55-4.78); Triglycerides 470 mg/dL (30-150)
--- NOTE | 2024-07-29 08:31 | PD.RESPRO ---
Documentation for date of: 07/29/24 Subjective Subjective Interval history: A 44-year-old F with history of gestational diabetes [2019] not on any medications presented to ED with altered mental status. History obtained from the patient and her at bedside. Patient' reports that he noted her to be confused however alert awake oriented yesterday when he came from work. She reports that she has been feeling tired, weak and fatigued since the past 4 days. Also endorsed history of left flank pain for the past 4 days, associated nausea and decreased oral intake. Denies chest pain, shortness of breath, dizziness, syncope, nausea, vomiting, diarrhea, dysuria, bowel bladder dysfunction, fever or any recent illness. Patient has elevated blood glucose levels during her 6 years ago however otherwise reports not taking any antidiabetic medications. Patient admitted to the ICU for treatment and management of DKA secondary to pyelonephritis 07/29/2024: Patient currently on DKA protocol. Bicarb infusion Stopped. Patient seen and examined in the ICU, endorsed 07/20 left flank pain. WBC decreased to 29.6 from 26.5, LA has trended to 3.5 from 5.2, pH 7.12, pCO2 10, Bicarb <10, creatinine decreased to 1.6 from 2.3, anion gap decreased to 25 from 27. Urinalysis leukocyte esterase positive. Blood culture growing GNR preliminary. Started on ceftriaxone 2 g IV daily, continue insulin infusion until gap closes x 2. Exam Vital Signs Temp Pulse Resp BP Pulse Ox O2 Del Method 99.2 F 131 H 25 H 168/91 H 100 Room Air 07/29/24 07:00 07/29/24 07:45 07/29/24 07:45 07/29/24 07:05 07/29/24 07:05 07/29/24 07:00 Narrative Exam Constitutional Alert, oriented x 3 and mild distress. Young Female HEENT Vision grossly intact. Patent nares. Trachea midline Respiratory Chest normal on inspection and clear auscultation bilaterally Cardiovascular S1 and S2 audible, RRR. No murmurs carotid bruit. No gross JVD. Abdominal Soft and tender to palpation on left flank. BS + Genitourinary No bladder tenderness, Left Flank Pain. Normal to palpation Musculoskeletal Extremities tone within normal limits. No LE edema. Neurological CN II - XII grossly intact. Extremity motor and sensation grossly intact. Skin Warm, dry and intact. No apparent lesions. Psychiatric Patient has good affect, is cooperative Objective Labs 07/31/24 04:25 07/31/24 04:25 Labs: Laboratory Results - last 24 hr 07/29/24 07/29/24 07/29/24 02:08 02:10 04:37 WBC 36.5 H* 29.6 H D RBC 4.44 3.87 L Hgb 13.6 11.9 L Hct 40.9 35.4 L MCV 92 92 MCH 30.6 30.7 MCHC 33.3 33.6 RDW Std Deviation 48.5 H 48.7 H Plt Count 281 211 D Neut % (Auto) 85 H 88 H Lymph % (Auto) 5 L 3 L [place] % (Auto) 3 1 Eos % (Auto) 0 0 Baso % (Auto) 0 1 Neut # (Auto) 31.0 H 26.0 H Lymph # (Auto) 1.7 0.8 L [place] # (Auto) 1.2 H 0.3 Eos # (Auto) 0.0 0.1 Baso # (Auto) 0.0 0.2 Immature Gran # (Auto) 2.53 H 2.24 H Absolute Nucleated RBC 0.00 0.00 Immature Gran % 7 H 8 H Nucleated RBC % 0 0 Smear Path Review Sent to Pathologist Puncture Site ABG pH ABG pCO2 ABG pO2 ABG HCO3 ABG O2 Saturation ABG Base Excess VBG pH 6.95 L 6.97 L VBG pCO2 12 L 20 L VBG pO2 110 H 54 D VBG O2 Sat (Ashish) 97 79 L VBG Base Excess -28 L -26 L FiO2 Sodium 132 L 138 Potassium 4.1 3.7 Chloride 95 L 103 Carbon Dioxide < 10.0 L* < 10.0 L* Anion Gap 27 H 25 H BUN 60 H 47 H Creatinine 2.3 H 1.6 H D Estim Creat Clear Calc Not Performed. Not Performed. eGFR 26 L 41 L BUN/Creatinine Ratio 26 H 29 H Glucose > 700 H* 582 H* D Calculated Osmolality 315 H 314 H Lactic Acid 3.5 H 5.2 H* Calcium 9.3 8.4 Corrected Calcium 9.5 9.2 Phosphorus Total Bilirubin 0.2 L 0.2 L AST < 10 < 10 ALT 10 < 7 L Alkaline Phosphatase 195 H 149 H D Troponin I < 0.020 Total Protein 7.4 5.5 L Albumin 3.8 3.0 L D Globulin 3.6 H 2.5 Albumin/Globulin Ratio 1.1 L 1.2 Triglycerides Cholesterol LDL Cholesterol, Calc HDL Cholesterol Cholesterol/HDL Ratio Lipase 44 Beta-Hydroxybutyrate/Acetoacetate 3.6 H Procalcitonin 7.46 H TSH HCG, Qual Negative Ur Collection Type Clean Catch Urine Color Lt-Yellow Urine Clarity Clear Urine pH 5.5 Ur Specific [place] 1.018 Urine Protein 1+ A Urine Glucose (UA) 4+ A Urine Ketones 4+ A Urine Blood 2+ A Urine Nitrite Negative Urine Bilirubin Negative Urine Urobilinogen (Auto) Negative Ur Leukocyte Esterase Positive Urine RBC 3 Urine WBC 22 H Ur Squamous Epith Cells 1 Urine Bacteria None Granular Casts < 1 Urine Opiates Screen Negative Urine Fentanyl Screen Negative Ur Barbiturates Screen Negative U Amphetamin/Meth Scrn Negative U Benzodiazepines Scrn Negative U Cocaine Metab Screen Negative U Marijuana (THC) Screen Negative Ethyl Alcohol < 3.0 07/29/24 07/29/24 05:30 07:05 WBC RBC Hgb Hct MCV MCH MCHC RDW Std Deviation Plt Count Neut % (Auto) Lymph % (Auto) [place] % (Auto) Eos % (Auto) Baso % (Auto) Neut # (Auto) Lymph # (Auto) [place] # (Auto) Eos # (Auto) Baso # (Auto) Immature Gran # (Auto) Absolute Nucleated RBC Immature Gran % Nucleated RBC % Smear Path Review Puncture Site Right Radial ABG pH 7.12 L* ABG pCO2 10 L* ABG pO2 131 H ABG HCO3 3 L* ABG O2 Saturation 99 H ABG Base Excess -24 L VBG pH 7.17 L VBG pCO2 14 L VBG pO2 66 H VBG O2 Sat (Ashish) 93 L VBG Base Excess -21 L FiO2 21 Sodium 146 H Potassium 2.8 L D Chloride 109 H Carbon Dioxide < 10.0 L* Anion Gap 27 H BUN 44 H Creatinine 1.4 H Estim Creat Clear Calc Not Performed. eGFR 48 L BUN/Creatinine Ratio 31 H Glucose 429 H* D Calculated Osmolality 319 H Lactic Acid Calcium 7.6 L Corrected Calcium 8.6 Phosphorus 1.1 L Total Bilirubin AST ALT Alkaline Phosphatase Troponin I Total Protein Albumin 2.7 L Globulin Albumin/Globulin Ratio Triglycerides 470 H Cholesterol 147 LDL Cholesterol, Calc TNP HDL Cholesterol < 5 L Cholesterol/HDL Ratio 29.0 H Lipase Beta-Hydroxybutyrate/Acetoacetate Procalcitonin TSH 0.05 L* HCG, Qual Ur Collection Type Urine Color Urine Clarity Urine pH Ur Specific [place] Urine Protein Urine Glucose (UA) Urine Ketones Urine Blood Urine Nitrite Urine Bilirubin Urine Urobilinogen (Auto) Ur Leukocyte Esterase Urine RBC Urine WBC Ur Squamous Epith Cells Urine Bacteria Granular Casts Urine Opiates Screen Urine Fentanyl Screen Ur Barbiturates Screen U Amphetamin/Meth Scrn U Benzodiazepines Scrn U Cocaine Metab Screen U Marijuana (THC) Screen Ethyl Alcohol ABG Interpretation ABG results: 07/29/24 07/29/24 07/29/24 02:10 04:37 05:30 ABG pH 7.12 L* ABG pCO2 10 L* ABG pO2 131 H ABG HCO3 3 L* ABG O2 Saturation 99 H ABG Base Excess -24 L VBG pH 6.95 L 6.97 L VBG pCO2 12 L 20 L VBG pO2 110 H 54 D VBG Base Excess -28 L -26 L 07/29/24 07:05 ABG pH ABG pCO2 ABG pO2 ABG HCO3 ABG O2 Saturation ABG Base Excess VBG pH 7.17 L VBG pCO2 14 L VBG pO2 66 H VBG Base Excess -21 L Quality Measures Quality Measures none Assessment & Plan Assessment Current Active Medications: Generic Name Dose Route Start Last Admin Trade Name Freq PRN Reason Stop Dose Admin Acetaminophen 650 mg 07/29/24 05:00 Acetaminophen 325 Mg Tablet PO 08/28/24 04:59 Q4HR PRN PAIN SCALE 1-3 (mild Acetaminophen 650 mg 07/29/24 05:00 Acetaminophen Supp 650 Mg Supp [place] 08/28/24 04:59 Q4HR PRN PAIN SCALE 1-3 (mild Dextrose 25 ml 07/29/24 03:28 Dextrose 50%-Water Inj 50 Ml Syringe IV [id number] PRN Blood Sugar - Low Dextrose 25 ml 07/29/24 05:00 Dextrose 50%-Water Inj 50 Ml Syringe IV [id number] PRN Blood Sugar - Low Heparin Sodium (Porcine) 5,000 unit 07/29/24 06:00 07/29/24 06:44 Heparin Sod Inj 5000 Unit/Ml Vial SC 08/12/24 05:59 5,000 unit Q8HR EDE Administration Potassium Chloride 10 meq in 100 mls @ 100 mls/hr 07/29/24 03:28 Kcl Ivpb IV 08/28/24 03:27 .Q1H PRN IF POTASSIUM LESS THAN 3.3 Magnesium Sulfate 2 gm in 50 mls @ 25 mls/hr 07/29/24 03:28 Magnesium Sulfate Ivpb IV 08/28/24 03:27 .Q2H PRN PER DKA PROTOCOL Insulin Human Regular 100 unit 100 mls @ 6.622 mls/hr 07/29/24 03:28 07/29/24 06:01 / IV Miscellaneous Supplies IV 08/28/24 03:27 0.1 unit/kg/hr .Q15H7M PRN 6.622 mls/hr PER PROTOCOL Titration Protocol 0.1 UNIT/KG/HR Dextrose/Lactated Ringer's 1,000 mls @ 250 mls/hr 07/29/24 03:28 D5-Lr IV 08/28/24 03:27 .Q4H PRN PER PROTOCOL Lactated Ringer's 1,000 mls @ 250 mls/hr 07/29/24 03:28 Lactated Ringers IV 07/30/24 03:27 .Q4H PRN PER PROTOCOL Potassium Chloride 20 meq/ 1,010 mls @ 250 mls/hr 07/29/24 03:28 Lactated Ringer's IV 08/28/24 03:27 .Q4H3M PRN K LEVEL 3.3 TO 5.3mM/L Potassium Chloride 40 meq/ 1,020 mls @ 250 mls/hr 07/29/24 03:28 Lactated Ringer's IV 08/28/24 03:27 .Q4H5M PRN K LEVEL < 3.3 mM/L Potassium Chloride 40 meq/ 1,020 mls @ 250 mls/hr 07/29/24 03:28 Dextrose/Lactated Ringer's IV 08/28/24 03:27 .Q4H5M PRN K LEVEL < 3.3mM/L Potassium Cl/Dextrose/Lact Ringer's 20 meq in 1,000 mls @ 250 mls/hr 07/29/24 03:28 Kcl 20 Meq/L In D5-Lr IV 08/28/24 03:27 .Q4H PRN K LEVEL 3.3 TO 5.3 mM/L Potassium Chloride 10 meq in 100 mls @ 50 mls/hr 07/29/24 03:28 07/29/24 06:34 Kcl Ivpb IV 08/28/24 03:27 Infused PRN PRN Infusion K LEVEL 3.3 to 5.3 & BG > 200 Potassium Phosphate 15 mmol in 250 mls @ 62.5 mls/hr 07/29/24 03:28 Pot Phos 15 Mmol In Ns 250 Ml IV 08/28/24 03:27 PRN PRN Phosphate <= 1mg/dL Sodium Phosphate 15 mmol/ 255 mls @ 62.5 mls/hr 07/29/24 03:28 Sodium Chloride IV 08/28/24 03:27 .Q4H5M PRN Phosphate <= 1mg/dL and K> than 5.3 Magnesium Sulfate 2 gm in 50 mls @ 25 mls/hr 07/29/24 05:00 Magnesium Sulfate Ivpb IV 08/28/24 04:59 .Q2H PRN PER DKA PROTOCOL Dextrose/Lactated Ringer's 1,000 mls @ 250 mls/hr 07/29/24 05:00 D5-Lr IV 08/28/24 04:59 .Q4H PRN PER PROTOCOL Lactated Ringer's 1,000 mls @ 250 mls/hr 07/29/24 05:00 Lactated Ringers IV 07/30/24 04:59 .Q4H PRN PER PROTOCOL Potassium Chloride 20 meq/ 1,010 mls @ 250 mls/hr 07/29/24 05:00 Lactated Ringer's IV 08/28/24 04:59 .Q4H3M PRN K LEVEL 3.3 TO 5.3mM/L Potassium Chloride 40 meq/ 1,020 mls @ 250 mls/hr 07/29/24 05:00 Lactated Ringer's IV 08/28/24 04:59 .Q4H5M PRN K LEVEL < 3.3 mM/L Potassium Chloride 40 meq/ 1,020 mls @ 250 mls/hr 07/29/24 05:00 Dextrose/Lactated Ringer's IV 08/28/24 04:59 .Q4H5M PRN K LEVEL < 3.3mM/L Potassium Cl/Dextrose/Lact Ringer's 20 meq in 1,000 mls @ 250 mls/hr 07/29/24 05:00 Kcl 20 Meq/L In D5-Lr IV 08/28/24 04:59 .Q4H PRN K LEVEL 3.3 TO 5.3 mM/L Potassium Chloride 10 meq in 100 mls @ 50 mls/hr 07/29/24 05:00 Kcl Ivpb IV 08/28/24 04:59 PRN PRN K LEVEL 3.3 to 5.3 & BG > 200 Potassium Phosphate 15 mmol in 250 mls @ 62.5 mls/hr 07/29/24 05:00 Pot Phos 15 Mmol In Ns 250 Ml IV 08/28/24 04:59 PRN PRN Phosphate <= 1mg/dL Sodium Phosphate 15 mmol/ 255 mls @ 62.5 mls/hr 07/29/24 05:00 Sodium Chloride IV 08/28/24 04:59 .Q4H5M PRN Phosphate <= 1mg/dL and K> than 5.3 Sodium Bicarbonate 88.23 meq/ 588.23 mls @ 100 mls/hr 07/29/24 05:09 07/29/24 06:11 Dextrose IV 08/28/24 05:08 100 mls/hr .Q5H53M EDE Administration Magnesium Hydroxide 30 ml 07/29/24 05:00 Milk Of Magnesia Susp 30 Ml Udc PO 08/28/24 04:59 QDAY PRN CONSTIPATION Ondansetron HCl 4 mg 07/29/24 05:00 Ondansetron Inj 2 Mg/Ml Inj 2 Ml IV 08/28/24 04:59 Q6HR PRN NAUSEA OR VOMITING Pantoprazole Sodium 40 mg 07/29/24 09:00 Pantoprazole Inj 40 Mg Vial IVP 08/28/24 08:59 QDAY EDE Sodium Bicarbonate 50 ml 07/29/24 05:00 Sodium Bicarb Inj 8.4% Syr 50 Ml Syringe IV 08/28/24 04:59 Q4HR PRN For ph <= to 7.0 Plan A 44-year-old female with history of HTN, DM presented with altered mental status tachypneic, tachycardic, hypertensive with severe metabolic acidosis secondary to diabetic ketoacidosis along with VIANCA and possible urinary tract infection. Patient is alert awake oriented however is confused likely related to metabolic encephalopathy. Started on IV insulin as per DKA protocol along with aggressive IVF resuscitation including 6 L of LR bolus given in the ED ENDO Diabetic ketoacidosis DDx: secondary to pyelonephritis, undiagnosed DM Dx: pH 7.12, pCO2 10, bicarb 3, AG 25, glucose 582. hydroxybutyrate 5.6 Rx: Continue insulin infusion, LR/D5 IV fluids. Replete electrolytes as necessary RRX: once anion gap closes x 2, to transition to SC insulin Newly diagnosed type II IDDM Dx : A1c 11.3% Rx: Continue DKA protocol for now, to transition to SC insulin once AG closes times 2 ID GNR bacteremia secondary to left pyelonephritis Dx: Blood culture grew GNR preliminary. Patient had history of left flank pain and urinalysis showed leukocyte esterase positive Rx: Continue ceftriaxone 2 g IV daily started on [07/29- RRX: Await identification on blood culture NEURO No acute problems CVS Sinus tachycardia DDx: dehydration, DKA, bacteremia Dx: HR 110's Rx: Continue aggressive fluid resusitation PULM No acute problems GI/Hep No acute problems RENAL VIANCA , prerenal secondary to dehydration and pyelonephritis Dx: Cr 2.3 -> 5.2 Rx: Continue fluid resuscitation Lactic acidosis DDx: Pyelonephritis, DKA Dx: Lactic acid 3.5 -> 5.2 Rx: Continue fluid resusitation RRX: Trend LA HEME/ONC Normocytic Anemia DDx: Dilutional , patient recevied 11 L of fluid for the day Dx: Hb 11.9 Rx: Continue to monitor for signs of Bleeding and CBC Leukocytosis DDx: Secondary to pyelonephritis and bacteremia Dx: WBC 26.5?>29.6 Rx: Continue ceftriaxone MSK/DERM No acute problems. ICU Health maintenance: Dispo: Admit to ICU for DKA secondary to pyelonephritis Diet: NPO DVT ppx: Enoxaparin 30mg SC daily GI ppx: None IV lines: 2 pIV Central line: No Arterial line: No [place]: No Code status: FULL CODE Plan of care discussed with Attending Dr. Charlene Espinoza MD PGY 1 Disclaimer: This note was dictated by speech recognition. Minor errors in concrete stone fabricating supervisor may be present due to voice recognition software. Attending Provider Attestation/Addendum Patient seen and examined with the above resident, Cholo Espinoza MD. I agree with the findings, assessment, and plan of care as documented except for any differences below. Patient with ongoing sepsis and dehydration. Patient remains on appropriate antibiotics while we await culture data. Patient with significant tachycardia and hypertension. Remains volume depleted due to DKA still. Additional bolus given. Aggressive electrolyte replacement/ I would not resume NaHCO3 gtt due to low K and Phos at this point. Replacement given with insulin gtt on hold and resumed after follow up BMP ensured adequate K and Phos. Patient with need for continued serial labs, IVF, and insulin. No evidence of ischemia on EKG and lipase negative at this time. No abdominal imaging and renal USG dshowed no hydronephrosis at this time. Patient and family updated on plan of care. Total critical care time: I personally spent 40 minutes for review of physiologic parameters, directing plan of care, and counseling patient and family at bedside. This is exclusive of time spent teaching housestaff or performing any separate billable procedures. Will need continued closee monitoring and care only available in ICU given risk of further morbidity and mortality. Critical care services required for AGMA/ DKA, sepsis, and multiple electrolyte derangements including sever hypophosphatemia and hypokalemia.
[2024-07-29 08:55] LABS: Glucose Estimated Average 278 mg/dL (80-131); Hemoglobin A1C 11.3 % Hgb (4.8-6.0)
[2024-07-29] MEDS: PANTOPRAZOLE INJ 40 MG VIAL IVP (09:08)
[2024-07-29] MEDS: POTASSIUM CHL 10 mEq IVPB 10 MEQ/100 ML BAG 100 MEQ IV ×4 (09:12→12:25)
[2024-07-29 09:28] LABS: Lactate (Lactic Acid) 1.8 mMol/L (0.4-2.0)
[2024-07-29] MEDS: POTASSIUM CHLORIDE 20 mEq TABCR PO (09:42)
[2024-07-29] MEDS: POTASSIUM CHLORIDE 10% 20 MEQ/15 ML UDC PO (09:42)
[2024-07-29] MEDS: ENOXAPARIN SOD INJ 30 MG/0.3 ML SYRINGE SC (09:43)
[2024-07-29] MEDS: POT PHOS 15 mMol in NS 250 ML 15 MMOL/250 ML BAG 62.5 MMOL IV ×2 (09:58→13:21)
[2024-07-29] MEDS: LABETALOL INJ 5 MG/ML VIAL 20 ML 10 MG IVP (10:48)
[2024-07-29 12:08] LABS: Albumin, Serum 2.5 gm/dL (3.5-5.0); Anion Gap 23 (7-16); BUN/Creatinine Ratio 28 Ratio (12-20); Blood Urea Nitrogen 39 mg/dL (9-23); Calcium 7.9 mg/dL (8.3-10.6); Calcium (Corrected) 9.1 mg/dL (8.5-10.1); Chloride 112 mMol/L (98-107); Creatinine (Component) 1.4 mg/dL (0.6-1.3); Estimated Creatinine Clearance 48.5 mL/min (>60); Glucose 355 mg/dL (74-106); Magnesium 1.6 mg/dL (1.6-2.6); Osmolality,Calculated 312 (275-295); Phosphorous 2.2 mg/dL (2.4-5.1); Potassium 4.3 mMol/L (3.4-5.1); Sodium 145 mMol/L (136-145); eGFR 48 See Note
[2024-07-29 12:16] LABS: Carbon Dioxide < 10.0 mMol/L (20.0-31.0)
--- NOTE | 2024-07-29 12:22 | PC.SS ---
Patient is a 44YO, Female, Reason for visit: DKA SS met with patient and patient?s spouse at bedside. Patient is Salvadorean speaking. Role and purpose of today?s contact explained to both. Patient?s spouse Aquilino Roberts [phone]. He confirmed patient?s demographic information. Patient?s spouse Aquilino Roberts is patient?s primary medical surrogate decisionmaker. He explained patient lives with him. Patient is independent with ADL completion and independent with ambulation. [facility] ?PCP: NIURKA Hernandez. Patient and spouse unable to recall last appt. date. Next of kin: Patient?s spouse Aquilino Roberts [phone] Discharge plan: Home, family to provide transportation.
[2024-07-29 12:36] LABS: Band Neutrophils (Manual) 5 % (0-6); Lymphocytes (Manual) 8 % (20-44); Metamyelocytes (Manual) 2 % (0-0); Monocytes (Manual) 1 % (2-9); Myelocytes (Manual) 2 % (0-0); Neutrophils (Manual) 82 % (50-70)
[2024-07-29] MEDS: POT CHL ADDITIVE 20 MEQ in RINGERS LACTATED 1000 ML 1,000 ML 250 MEQ IV ×2 (12:47→16:59)
[2024-07-29 16:34] LABS: Albumin, Serum 2.6 gm/dL (3.5-5.0); Anion Gap 13 (7-16); BUN/Creatinine Ratio 26 Ratio (12-20); Blood Urea Nitrogen 34 mg/dL (9-23); Calcium 7.6 mg/dL (8.3-10.6); Calcium (Corrected) 8.7 mg/dL (8.5-10.1); Chloride 119 mMol/L (98-107); Creatinine (Component) 1.3 mg/dL (0.6-1.3); Estimated Creatinine Clearance 52.2 mL/min (>60); Glucose 276 mg/dL (74-106); Magnesium 1.4 mg/dL (1.6-2.6); Osmolality,Calculated 310 (275-295); Phosphorous 1.3 mg/dL (2.4-5.1); Potassium 4.1 mMol/L (3.4-5.1); Sodium 147 mMol/L (136-145); eGFR 52 See Note
[2024-07-29] MEDS: HYDROmorphone INJ 2 MG/ML VIAL 0.5 MG IVP (17:03)
[2024-07-29 17:13] LABS: Carbon Dioxide 14.6 mMol/L (20.0-31.0)
[2024-07-29] MEDS: KCL 20 mEq/L in D5-LR 20 MEQ/1,000 ML BAG 250 MEQ IV (17:40)
[2024-07-29] MEDS: DEXTROSE 5%-0.45% NS 500 ML 100 ML IV (18:46)
[2024-07-29] MEDS: Magnesium Sulfate 2 GM Ivpb 2 GM/50 ML BAG IV (19:04)
[2024-07-29 19:47] LABS: Albumin, Serum 2.6 gm/dL (3.5-5.0); Anion Gap 11 (7-16); BUN/Creatinine Ratio 25 Ratio (12-20); Blood Urea Nitrogen 30 mg/dL (9-23); Calcium 7.5 mg/dL (8.3-10.6); Calcium (Corrected) 8.6 mg/dL (8.5-10.1); Carbon Dioxide 19.5 mMol/L (20.0-31.0); Chloride 119 mMol/L (98-107); Creatinine (Component) 1.2 mg/dL (0.6-1.3); Estimated Creatinine Clearance 56.6 mL/min (>60); Glucose 258 mg/dL (74-106); Magnesium 1.6 mg/dL (1.6-2.6); Osmolality,Calculated 311 (275-295); Phosphorous 1.2 mg/dL (2.4-5.1); Potassium 3.6 mMol/L (3.4-5.1); Sodium 149 mMol/L (136-145); eGFR 58 See Note
--- NOTE | 2024-07-29 21:13 | PC.NURSE ---
magnesium level 1.6 draw was taken durin magnesium infusion per Dr Taiwo rizo to wait till next draw to give more magnesium if indicated
[2024-07-29] MEDS: carVEDILOL 3.125 MG TABLET 6.25 MG PO (23:26)
[2024-07-29] MEDS: LABETALOL INJ 5 MG/ML VIAL 20 ML IVP (23:26)
[2024-07-30] VITALS (52 sets, daily range): BP systolic 139–202; BP diastolic 83–127; PULSE 93–135; RESP 12–99; TEMP 36.2–38.1; O2SAT 97–100; BMI 21.7
[2024-07-30 00:09] LABS: Albumin, Serum 2.6 gm/dL (3.5-5.0); Anion Gap 11 (7-16); BUN/Creatinine Ratio 19 Ratio (12-20); Blood Urea Nitrogen 21 mg/dL (9-23); Calcium 7.6 mg/dL (8.3-10.6); Calcium (Corrected) 8.7 mg/dL (8.5-10.1); Carbon Dioxide 20.5 mMol/L (20.0-31.0); Chloride 118 mMol/L (98-107); Creatinine (Component) 1.1 mg/dL (0.6-1.3); Estimated Creatinine Clearance 61.7 mL/min (>60); Glucose 215 mg/dL (74-106); Magnesium 1.8 mg/dL (1.6-2.6); Osmolality,Calculated 305 (275-295); Potassium 3.3 mMol/L (3.4-5.1); Sodium 149 mMol/L (136-145); eGFR > 60 See Note
[2024-07-30 00:20] LABS: Phosphorous 0.6 mg/dL (2.4-5.1)
--- NOTE | 2024-07-30 00:55 | PC.NURSE ---
Dr. castaneda notified of anion gap closed x3, patient able to tolerate food pending orders for transition into subcutaneous insulin
[2024-07-30] MEDS: POT PHOS 15 mMol in NS 250 ML 15 MMOL/250 ML BAG 62.5 MMOL IV ×3 (01:04→14:32)
[2024-07-30 04:04] LABS: Basophils # (Auto) 0.1 Thou/mm3 (0.0-0.2); Basophils % (Auto) 0 % (0-2.5); Eosinophils % (Auto) 0 % (0-10); Hematocrit 31.2 % (36.0-46.0); Hemoglobin 11.4 g/dL (12.0-16.0); Immature Granulocytes % (Auto) 2 % (0-0); Lymphocytes # (Auto) 0.7 Thou/mm3 (1.0-4.8); Lymphocytes % (Auto) 3 % (10-50); Mean Corpuscular HGB Conc 36.5 g/dl (31.0-37.0); Mean Corpuscular Hemoglobin 30.8 pg (25.0-35.0); Mean Corpuscular Volume 84 fL (80-100); Monocytes # (Auto) 0.5 Thou/mm3 (0.0-0.8); Monocytes % (Auto) 2 % (0-12); Neutrophils # (Auto) 21.1 Thou/mm3 (1.8-7.7); Neutrophils % (Auto) 93 % (37-80); Nucleated Red Blood Cell % 0 /100 WBC (0); Platelet Count 181 Thou/mm3 (140-440); RDW Standard Deviation 42.1 fL (36.4-46.3); White Blood Count 22.8 Thou/mm3 (3.6-11.0)
[2024-07-30 04:42] LABS: Albumin, Serum 2.5 gm/dL (3.5-5.0); Anion Gap 6 (7-16); BUN/Creatinine Ratio 19 Ratio (12-20); Blood Urea Nitrogen 17 mg/dL (9-23); Calcium 7.3 mg/dL (8.3-10.6); Calcium (Corrected) 8.5 mg/dL (8.5-10.1); Carbon Dioxide 23.6 mMol/L (20.0-31.0); Chloride 117 mMol/L (98-107); Creatinine (Component) 0.9 mg/dL (0.6-1.3); Estimated Creatinine Clearance 75.5 mL/min (>60); Glucose 217 mg/dL (74-106); Magnesium 1.6 mg/dL (1.6-2.6); Osmolality,Calculated 300 (275-295); Phosphorous 1.1 mg/dL (2.4-5.1); Potassium 3.7 mMol/L (3.4-5.1); Sodium 147 mMol/L (136-145); eGFR > 60 See Note
[2024-07-30] MEDS: LABETALOL INJ 5 MG/ML VIAL 20 ML IVP (05:30)
--- NOTE | 2024-07-30 05:49 | PC.NURSE ---
0508 BP high see vitals, attempted to reach Dr. Maravilla - no answer called resident hospitalist Dr. zuniga answered - made aware of BP, plans to keep patient on insulin gtt and wait for day team to give orders to transition the patient from dka 0331 BP high see vitals, patient meeting criteria for DKA transition Agap closed x3 times. attemtped to reach Dr. Maravilla - no answer [id number] maravilla feed the patient and we will see about transitioning hours later
--- NOTE | 2024-07-30 07:25 | ESPR_ITS ---
Documentation for date of: 07/30/24 Subjective Subjective Interval history: A 44-year-old F with history of gestational diabetes [2019] not on any medications presented to ED with altered mental status. History obtained from the patient and her at bedside. Patient' reports that he noted her to be confused however alert awake oriented yesterday when he came from work. She reports that she has been feeling tired, weak and fatigued since the past 4 days. Also endorsed history of left flank pain for the past 4 days, associated nausea and decreased oral intake. Denies chest pain, shortness of breath, dizziness, syncope, nausea, vomiting, diarrhea, dysuria, bowel bladder dysfunction, fever or any recent illness. Patient has elevated blood glucose levels during her 6 years ago however otherwise reports not taking any antidiabetic medications. Patient admitted to the ICU for treatment and management of DKA secondary to pyelonephritis 07/29/2024: Patient currently on DKA protocol. Bicarb infusion Stopped. Patient seen and examined in the ICU, endorsed 07/20 left flank pain. WBC decreased to 29.6 from 26.5, LA has trended to 3.5 from 5.2, pH 7.12, pCO2 10, Bicarb <10, creatinine decreased to 1.6 from 2.3, anion gap decreased to 25 from 27. Urinalysis leukocyte esterase positive. Blood culture growing GNR preliminary. Started on ceftriaxone 2 g IV daily, continue insulin infusion until gap closes x 2. 07/30/2024: Overnight patient's Anion gap closed x 3. Patient examined in ICU at bedside this a.m. She complained of nausea and a few episodes of vomiting, able to tolerate minimal solids and fluids in between episodes of vomiting. BP 191/111. WBC decreased to 22.8 from 29.6, Hb decreased to 11.4 from telemetry, PLT decreased 181 from 211, NA 147, K3.7, CL 117, Phos 1.1, Mg 1.6, HbA1c 11.3%, blood culture growing GNR preliminary. CT abdomen pelvis showed severely edematous kidneys bilaterally with perinephric stranding suggestive of pyelonephritis, mild free fluid in abdomen and pelvis and 2 cm right ovarian cyst. Will schedule metoclopramide 10 Mg IV Q6 hourly, Vasotec 1.25 Mg IV every 6 hourly, labetalol 10 Mg IV every 4 hourly as needed, transition to insulin glargine 35U SC daily and lispro 10U 3 times daily with meals. TVUSS and OB consult ordered. Once blood pressure under control, will downgrade patient to telemetry Exam Vital Signs Temp Pulse Resp BP Pulse Ox O2 Del Method 98.3 F 97 18 186/101 H 100 Room Air 07/29/24 20:00 07/30/24 06:28 07/30/24 06:28 07/30/24 06:16 07/30/24 06:16 07/29/24 07:00 Narrative Exam Constitutional Alert, oriented x 3 and comfortable. Young Female HEENT Vision grossly intact. Patent nares. Trachea midline Respiratory Chest normal on inspection and clear auscultation bilaterally Cardiovascular S1 and S2 audible, RRR. No murmurs carotid bruit. No gross JVD. Abdominal Soft and nontender to palpation. BS + Genitourinary No bladder tenderness. Normal to palpation Musculoskeletal Extremities tone within normal limits. No LE edema. Neurological CN II - XII grossly intact. Extremity motor and sensation grossly intact. Skin Warm, dry and intact. No apparent lesions. Psychiatric Patient has good affect, is cooperative Objective Labs 08/01/24 04:23 08/01/24 04:23 Labs: Laboratory Results - last 24 hr 07/29/24 07/29/24 07/29/24 04:37 07:05 09:15 WBC RBC Hgb Hct MCV MCH MCHC RDW Std Deviation Plt Count Neut % (Auto) Lymph % (Auto) Ponce % (Auto) Eos % (Auto) Baso % (Auto) Neut # (Auto) Lymph # (Auto) Ponce # (Auto) Eos # (Auto) Baso # (Auto) Immature Gran # (Auto) Absolute Nucleated RBC Immature Gran % Neutrophils % (Manual) 82 H Monocytes % (Manual) 1 L Metamyelocytes % 2 H Myelocytes % 2 H Nucleated RBC % Band Neutrophils 5 Lymphocytes (Manual) 8 L VBG pH 7.17 L VBG pCO2 14 L VBG pO2 66 H VBG O2 Sat (Ashish) 93 L VBG Base Excess -21 L Sodium 146 H Potassium 2.8 L D Chloride 109 H Carbon Dioxide < 10.0 L* Anion Gap 27 H BUN 44 H Creatinine 1.4 H Estim Creat Clear Calc Not Performed. eGFR 48 L BUN/Creatinine Ratio 31 H Glucose 429 H* D Estimated Ave Glu mg/dL 278 H Hemoglobin A1c 11.3 H Calculated Osmolality 319 H Lactic Acid 1.8 Calcium 7.6 L Corrected Calcium 8.6 Phosphorus 1.1 L Cancelled Magnesium Cancelled Albumin 2.7 L Triglycerides 470 H Cholesterol 147 LDL Cholesterol, Calc TNP HDL Cholesterol < 5 L Cholesterol/HDL Ratio 29.0 H TSH 0.05 L* 07/29/24 07/29/24 07/29/24 11:25 15:22 19:18 WBC RBC Hgb Hct MCV MCH MCHC RDW Std Deviation Plt Count Neut % (Auto) Lymph % (Auto) Ponce % (Auto) Eos % (Auto) Baso % (Auto) Neut # (Auto) Lymph # (Auto) Ponce # (Auto) Eos # (Auto) Baso # (Auto) Immature Gran # (Auto) Absolute Nucleated RBC Immature Gran % Neutrophils % (Manual) Monocytes % (Manual) Metamyelocytes % Myelocytes % Nucleated RBC % Band Neutrophils Lymphocytes (Manual) VBG pH VBG pCO2 VBG pO2 VBG O2 Sat (Ashish) VBG Base Excess Sodium 145 147 H 149 H Potassium 4.3 D 4.1 3.6 D Chloride 112 H 119 H 119 H Carbon Dioxide < 10.0 L* 14.6 L* 19.5 L Anion Gap 23 H 13 11 BUN 39 H 34 H 30 H Creatinine 1.4 H 1.3 1.2 Estim Creat Clear Calc 48.5 L 52.2 L 56.6 L eGFR 48 L 52 L 58 L BUN/Creatinine Ratio 28 H 26 H 25 H Glucose 355 H D 276 H D [address] Glu mg/dL Hemoglobin A1c Calculated Osmolality 312 H 310 H 311 H Lactic Acid Calcium 7.9 L 7.6 L 7.5 L Corrected Calcium 9.1 8.7 8.6 Phosphorus 2.2 L 1.3 L 1.2 L Magnesium 1.6 1.4 L 1.6 Albumin 2.5 L 2.6 L 2.6 L Triglycerides Cholesterol LDL Cholesterol, Calc HDL Cholesterol Cholesterol/HDL Ratio TSH 07/29/24 07/30/24 23:29 03:38 WBC 22.8 H D RBC 3.70 L Hgb 11.4 L Hct 31.2 L MCV 84 MCH 30.8 MCHC 36.5 RDW Std Deviation 42.1 Plt Count 181 D Neut % (Auto) 93 H Lymph % (Auto) 3 L Ponce % (Auto) 2 Eos % (Auto) 0 Baso % (Auto) 0 Neut # (Auto) 21.1 H Lymph # (Auto) 0.7 L Ponce # (Auto) 0.5 Eos # (Auto) 0.0 Baso # (Auto) 0.1 Immature Gran # (Auto) 0.40 H Absolute Nucleated RBC 0.00 Immature Gran % 2 H Neutrophils % (Manual) Monocytes % (Manual) Metamyelocytes % Myelocytes % Nucleated RBC % 0 Band Neutrophils Lymphocytes (Manual) VBG pH VBG pCO2 VBG pO2 VBG O2 Sat (Ashish) VBG Base Excess Sodium 149 H 147 H Potassium 3.3 L 3.7 Chloride 118 H 117 H Carbon Dioxide 20.5 23.6 Anion Gap 11 6 L BUN 21 17 Creatinine 1.1 0.9 Estim Creat Clear Calc 61.7 75.5 eGFR > 60 > 60 BUN/Creatinine Ratio 19 19 Glucose 215 H [address] Glu mg/dL Hemoglobin A1c Calculated Osmolality 305 H 300 H Lactic Acid Calcium 7.6 L 7.3 L Corrected Calcium 8.7 8.5 Phosphorus 0.6 L* 1.1 L Magnesium 1.8 1.6 Albumin 2.6 L 2.5 L Triglycerides Cholesterol LDL Cholesterol, Calc HDL Cholesterol Cholesterol/HDL Ratio TSH ABG Interpretation ABG results: 07/29/24 07/29/24 07/29/24 02:10 04:37 05:30 ABG pH 7.12 L* ABG pCO2 10 L* ABG pO2 131 H ABG HCO3 3 L* ABG O2 Saturation 99 H ABG Base Excess -24 L VBG pH 6.95 L 6.97 L VBG pCO2 12 L 20 L VBG pO2 110 H 54 D VBG Base Excess -28 L -26 L 07/29/24 07:05 ABG pH ABG pCO2 ABG pO2 ABG HCO3 ABG O2 Saturation ABG Base Excess VBG pH 7.17 L VBG pCO2 14 L VBG pO2 66 H VBG Base Excess -21 L Quality Measures Quality Measures none Assessment & Plan Assessment Current Active Medications: Generic Name Dose Route Start Last Admin Trade Name Freq PRN Reason Stop Dose Admin Acetaminophen 650 mg 07/29/24 18:31 Acetaminophen 325 Mg Tablet PO 08/28/24 04:59 Q4HR PRN Pain 1-3 or Temp >100.3 Carvedilol 6.25 mg 07/30/24 09:00 Carvedilol 3.125 Mg Tablet PO 08/29/24 08:59 BID EDE Dextrose 50 ml 07/30/24 07:07 Dextrose 50%-Water Inj 50 Ml Syringe IV 08/29/24 07:06 Q15MIN PRN BG <50 OR BG <70 & pt unresponsive Enoxaparin Sodium 40 mg 07/30/24 21:00 Enoxaparin Sod Inj 40 Mg/0.4 Ml Syringe SC 08/13/24 20:59 HS EDE Glucagon 1 mg 07/30/24 07:07 Glucagon Inj 1 Mg Vial IM Q15MIN PRN BG <70, and no IV access Hydromorphone HCl 0.5 mg 07/29/24 16:52 07/29/24 17:03 Hydromorphone Inj 2 Mg/Ml Vial IVP 08/03/24 16:51 0.5 mg Q4HR PRN Administration PAIN 4-10 Insulin Human Regular 100 unit 100 mls @ 6.622 mls/hr 07/29/24 03:28 07/30/24 06:00 / IV Miscellaneous Supplies IV 07/30/24 08:15 0.1 unit/kg/hr .Q15H7M PRN 6.622 mls/hr PER PROTOCOL Titration Protocol 0.1 UNIT/KG/HR Dextrose/Lactated Ringer's 1,000 mls @ 250 mls/hr 07/29/24 05:00 D5-Lr IV 07/30/24 08:15 .Q4H PRN PER PROTOCOL Ceftriaxone Sodium 2 gm/ 50 mls @ 100 mls/hr 07/30/24 09:00 Sodium Chloride IV 08/06/24 08:59 QDAY EDE Potassium Phosphate 15 mmol in 250 mls @ 62.5 mls/hr 07/30/24 00:54 07/30/24 01:04 Pot Phos 15 Mmol In Ns 250 Ml IV 07/30/24 08:53 62.5 mls/hr Q4H EDE Administration Magnesium Sulfate 4 gm in 50 mls @ 12.5 mls/hr 07/30/24 07:08 Magnesium Sulfate Ivpb IV 07/30/24 11:07 X1 ONE Insulin Human Lispro 10 unit 07/30/24 08:00 Insulin Lispro (Admelog) 1 Unit/0.01 Ml Unit SC 08/29/24 07:59 TIDWM [facility] Insulin Human Lispro 0 unit 07/30/24 07:30 Insulin Lispro (Admelog) 1 Unit/0.01 Ml Unit SC 08/29/24 07:29 ACHS [facility] Protocol Losartan Potassium 50 mg 07/30/24 07:05 Losartan Potassium 25 Mg Tablet PO 08/29/24 07:04 QDAY EDE Magnesium Hydroxide 30 ml 07/29/24 05:00 Milk Of Magnesia Susp 30 Ml Udc PO 08/28/24 04:59 QDAY PRN CONSTIPATION Ondansetron HCl 4 mg 07/29/24 05:00 Ondansetron Inj 2 Mg/Ml Inj 2 Ml IV 08/28/24 04:59 Q6HR PRN NAUSEA OR VOMITING Pantoprazole Sodium 40 mg 07/29/24 09:00 07/29/24 09:08 Pantoprazole Inj 40 Mg Vial IVP 08/28/24 08:59 40 mg QDAY [facility] Administration Plan A 44-year-old female with history of HTN, DM presented with altered mental status tachypneic, tachycardic, hypertensive with severe metabolic acidosis secondary to diabetic ketoacidosis along with VIANCA and possible urinary tract infection. Patient is alert awake oriented however is confused likely related to metabolic encephalopathy. Started on IV insulin as per DKA protocol along with aggressive IVF resuscitation including 6 L of LR bolus given in the ED ENDO Diabetic ketoacidosis - resolved DDx: secondary to pyelonephritis, undiagnosed DM Dx: Initially pH 7.12, pCO2 10, bicarb 3, AG 25, glucose 582. hydroxybutyrate 5.6. AG 7 Rx: Transition to insulin glargine 35U SC at bedtime, lispro 10 units SC 3 times daily with meals and correction scale Newly diagnosed type II IDDM Dx : A1c 11.3% Rx: Transition to insulin glargine 35U SC at bedtime, lispro 10 units SC 3 times daily with meals and correction scale ID GNR bacteremia secondary to bilateral Pyelonephritis Dx: Blood culture grew GNR preliminary. Patient had history of left flank pain and urinalysis showed leukocyte esterase positive. CT abdomen/pelvis showed bilaterally severely edematous kidneys, perinephric fat stranding suggestive of pyelonephritis. 2 cm right ovarian cyst with mild free fluid in abdomen pelvis. Rx: Continue ceftriaxone 2 g IV daily started on [07/29- RRX: Await identification on blood culture 2cm Ovarian Cyst Free Fluid in Abdomen DDx: Ruptured ovarian cyst Dx: CT abdomen/pelvis showed bilaterally severely edematous kidneys, perinephric fat stranding suggestive of pyelonephritis. 2 cm right ovarian cyst with mild free fluid in abdomen pelvis. Rx: TVUSS and OBGYN consult NEURO No acute problems CVS Sinus tachycardia DDx: dehydration, bacteremia Dx: HR 110's Rx: treat underlying cause Hypertensive urgency DDx: Uncontrolled HTN, pain, bacteremia Dx: BP 191/110. No signs of endorgan damage, also denies any headache, blurred vision or dizziness. Rx: Vasotec 1.25 Mg IV Q6 hourly, to increase by 1.25 Mg q. hourly up to a max of 5 mg Q6 hourly. Labetalol 10 Mg IV every 4 hourly as needed for SBP greater than 170 RRx: Monitor blood pressure response and titrate Vasotec's as necessary. PULM Bi-basilar Atelectasis DDx: secondary to bedbound Dx: Bi-basilar atelectasis on exam Rx: Incentive spirometry GI/Hep Vomiting DDx: diabetic gastroparesis Dx: HbA1c 11.3% Rx: Metoclopramide 10 mg IV q6hrly EDE Constipation Rx: Milk of magnesia PRN RENAL VIANCA , prerenal secondary to dehydration and pyelonephritis?resolved Dx: Cr 2.3 -> 1.6 -> 0.9 Lactic acidosis - resolved DDx: Pyelonephritis, DKA Dx: Lactic acid 3.5 -> 5.2 -> 1.8 HEME/ONC Normocytic Anemia DDx: Dilutional , patient recevied 11 L of fluid for the day Dx: Hb 11. - > 11.49 Rx: Continue to monitor for signs of Bleeding and CBC Leukocytosis DDx: Secondary to pyelonephritis and bacteremia Dx: WBC 26.5?>29.6 ->22.8 Rx: Continue ceftriaxone MSK/DERM No acute problems. ICU Health maintenance: Dispo: Once blood pressure under control, for downgrade to telemetry. Diet: Low consistent carb diet DVT ppx: Enoxaparin 30mg SC daily GI ppx: None IV lines: 2 pIV Central line: No Arterial line: No Del Castillo: No Code status: FULL CODE Plan of care discussed with Attending Dr. Charlene Espinoza MD PGY 1 Disclaimer: This note was dictated by speech recognition. Minor errors in utility aircrewman may be present due to voice recognition software. Attending Provider Attestation/Addendum Patient seen and examined with the above resident, Cholo Espinoza MD. Patient with significant long standing malnutrition and poorly controlled DM. Her DKA has resolved but evolving possible sepsis as well. Fluid resuscitation adequate now. BP high and multiple agent regimen required with IV therapy in interim due to inability to tolerate PO medications. Patient with significant finding of bacteremia as well, GNR noted but speciation/ sensitivities pending now. Remains on antibiotics and we did obtain CT imaging to ensure no close space source. Pelvic fluid noted and cyst though after conferring with gynecology, confident this is due to menstrual changes and not underlying infection. A dose of azithromycin was given, but further history suggest slow risk for STI as precipitant. GNR likely due to urinary tract infection from hyperglycemia and ketosis on going. Renal function normalizing but signficant hypertrophy of both kidneys due to long standing/ poor controlled DM. No surgical/ IR intervention needed based on imaging at this time. She is otherwise stable for transfer to medicine muhammad for ongoing management. Patient and family counseled extensively at bedside. Total critical care time: I personally spent 40 minutes for review of physiologic parameters, directing plan of care, coordination of care with other specialists, and counseling patient/ family at bedside. This is exclusive of time spent teaching housestaff or performing any separate billable procedures. Patient continued to be at high risk for further morbidity and mortality warranting close monitoring and care stephon available in the ICU. Critical care services required for DKA/ uncontrolled DM, acute renal failure, severe sepsis, and GNR bacteremia.
[2024-07-30] MEDS: Magnesium Sulfate 4 GM Ivpb 4 GM/50 ML BAG IV (07:28)
[2024-07-30] MEDS: LOSARTAN POTASSIUM 25 MG TABLET 50 MG PO (07:28)
[2024-07-30] MEDS: NAPH,KPH MBDB 1 PACKET (1.5 GM) PO ×2 (07:29)
[2024-07-30] MEDS: INSULIN GLARGINE (Lantus) 5 UNIT/0.05 ML (PER 5 UNITS) 35 UNIT SC (07:31)
[2024-07-30] MEDS: LABETALOL INJ 5 MG/ML VIAL 20 ML 10 MG IVP ×2 (08:00→11:10)
[2024-07-30] MEDS: cefTRIAXone 2 GM in SODIUM CHLORIDE 0.9% (Popper) 50 ML IV (08:14)
[2024-07-30] MEDS: HYDROmorphone INJ 2 MG/ML VIAL 0.5 MG IVP (08:17)
[2024-07-30] MEDS: PANTOPRAZOLE INJ 40 MG VIAL IVP (08:18)
[2024-07-30 09:02] LABS: Albumin, Serum 2.5 gm/dL (3.5-5.0); Anion Gap 9 (7-16); BUN/Creatinine Ratio 21 Ratio (12-20); Blood Urea Nitrogen 17 mg/dL (9-23); Calcium 7.5 mg/dL (8.3-10.6); Calcium (Corrected) 8.7 mg/dL (8.5-10.1); Carbon Dioxide 25.6 mMol/L (20.0-31.0); Chloride 113 mMol/L (98-107); Creatinine (Component) 0.8 mg/dL (0.6-1.3); Estimated Creatinine Clearance 84.9 mL/min (>60); Glucose 151 mg/dL (74-106); Magnesium 1.5 mg/dL (1.6-2.6); Osmolality,Calculated 298 (275-295); Phosphorous 1.1 mg/dL (2.4-5.1); Potassium 3.2 mMol/L (3.4-5.1); Sodium 148 mMol/L (136-145); eGFR > 60 See Note
--- NOTE | 2024-07-30 09:54 | XR_ITS ---
Examination: CT abdomen and pelvis without contrast. Coronal 3-D reconstructions. Sagittal 2-D reconstructions. Date and time of exam:July 30, 2024 1154 hours INDICATIONS: Onset generalized abdominal pain today CTDI: vol (mGy): 6.56 DLP: (mGycm): 367 Technique: Axial images of the abdomen have been obtained, 3 mm slice thickness Intravenous contrast material has not been administered. Low dose protocols were performed. One or more of the following dose reduction techniques were used; automated exposure control, adjustment of the mA and/or KV according to patient size, use of iterative reconstruction technique. Findings: Atelectasis in the lower lung zones with minimal pleural fluid No focal liver or splenic lesion Suspicious for gallbladder wall thickening No pancreatic mass Kidneys appear enlarged and edematous with perinephric stranding No ureteral calculi Mild free fluid in the abdomen and pelvis Normal appendix No bowel obstruction Anteverted uterus, suspicious for 20 mm right follicular cyst Urinary bladder Del Castillo catheter urinary bladder wall thickening up to 5 mm IMPRESSION: Recommend hepatobiliary sonography follow-up to exclude gallbladder wall thickening Kidneys appear enlarged edematous, consider pyelonephritis No ureteral calculi Cystitis pattern Mild free fluid in the abdomen and pelvis, suspicious for 20 mm right ovarian cyst, recommend pelvic sonography follow-up
[2024-07-30] MEDS: ONDANSETRON INJ 2 MG/ML INJ 2 ML 4 MG IV (09:56)
[2024-07-30] MEDS: POTASSIUM CHL 10 mEq IVPB 10 MEQ/100 ML BAG 50 MEQ IV ×4 (10:00→16:23)
[2024-07-30] MEDS: NIFEdipine XL 30 MG TABCR 60 MG PO (10:00)
[2024-07-30] MEDS: METOCLOPRAMIDE INJ 5 MG/ML VIAL 2 ML 10 MG IVP ×3 (10:27→23:27)
[2024-07-30] MEDS: ENALAPRILAT INJ 1.25 MG/ML VIAL IVP ×2 (10:27→14:32)
[2024-07-30] MEDS: ACETAMINOPHEN IVPB 1,000 MG/100 ML VIAL 250 MG IV (10:51)
[2024-07-30] MEDS: INSULIN LISPRO (AdmeLOG) 1 UNIT/0.01 ML UNIT 10 UNIT SC ×2 (12:08→17:45)
[2024-07-30] MEDS: INSULIN LISPRO (AdmeLOG) 1 UNIT/0.01 ML UNIT SC (12:09)
[2024-07-30 12:31] LABS: Albumin, Serum 2.6 gm/dL (3.5-5.0); Anion Gap 7 (7-16); BUN/Creatinine Ratio 18 Ratio (12-20); Blood Urea Nitrogen 14 mg/dL (9-23); Calcium 7.2 mg/dL (8.3-10.6); Calcium (Corrected) 8.3 mg/dL (8.5-10.1); Carbon Dioxide 25.7 mMol/L (20.0-31.0); Chloride 109 mMol/L (98-107); Creatinine (Component) 0.8 mg/dL (0.6-1.3); Estimated Creatinine Clearance 84.9 mL/min (>60); Glucose 276 mg/dL (74-106); Magnesium 2.2 mg/dL (1.6-2.6); Osmolality,Calculated 293 (275-295); Phosphorous 2.2 mg/dL (2.4-5.1); Potassium 3.5 mMol/L (3.4-5.1); Sodium 142 mMol/L (136-145); eGFR > 60 See Note
--- NOTE | 2024-07-30 13:36 | XR_ITS ---
Examination: Transvaginal ultrasound of the pelvis, complete Technique: Transvaginal sonographic images pelvis performed using mcfarland scale imaging Exam date and time: July 30, 2024 1450 hours INDICATIONS: Pelvic and abdominal pain beginning 2 days ago FINDINGS: Uterus 6.7 cm endometrial stripe 0.8 cm No uterine mass or intrauterine gestation Right ovary obscured by bowel gas Left ovary 2.2 cm arterial flow 11 mm follicular cyst IMPRESSION: No uterine mass or intrauterine gestation 8 mm left ovarian follicular cyst.
[2024-07-30] MEDS: AZITHROMYCIN INJ 500 MG in SODIUM CHLORIDE 0.9% 250 ML 250 ML 250 MG IV (14:27)
--- NOTE | 2024-07-30 16:31 | ESCONSULT_ITS ---
[facility] [employer] HPI Data of Consult Requesting Physician: Juan Diego Chang MD Primary Care Provider: Physician No Primary/Family Consult Narrative cc:: cc: Juan Diego Chang MD Meds Home Medications and Allergies Home Medications ?Medication ?Instructions ?Recorded ?Confirmed ?Type No Known Home Medications 07/29/2407/11 History Allergies Allergy/AdvReac Type Severity Reaction Status Date / Time No Known Allergies Allergy Verified 07/29/24 01:45 Exam - [facility] [employer] [facility] [employer] Vital Signs Temp Pulse Resp BP Pulse Ox O2 Del Method 97.1 F 110 H 19 158/90 H 97 Room Air 07/30/24 10:00 07/30/24 15:08 07/30/24 15:08 07/30/24 15:08 07/30/24 15:08 07/30/24 12:[address] [employer] - Results Labs 07/30/24 03:38 07/30/24 11:35 Labs: Short CBC 07/30/24 Range/Units 03:38 WBC 22.8 H D (3.6-11.0) Thou/mm3 Hgb 11.4 L (12.0-16.0) g/dL Hct 31.2 L (36.0-46.0) % Plt Count 181 D (140-440) Thou/mm3 BMP 07/29/24 07/29/24 07/29/24 15:22 19:18 23:29 Sodium 147 H 149 H 149 H Potassium 4.1 3.6 D 3.3 L Chloride 119 H 119 H 118 H Carbon Dioxide 14.6 L* 19.5 L 20.5 BUN 34 H 30 H 21 Creatinine 1.3 1.2 1.1 Glucose 276 H D 258 H 215 H Calcium 7.6 L 7.5 L 7.6 L 07/30/24 07/30/24 07/30/24 03:38 07:35 11:35 Sodium 147 H 148 H 142 Potassium 3.7 3.2 L D 3.5 Chloride 117 H 113 H 109 H Carbon Dioxide 23.6 25.6 25.7 BUN 17 17 14 Creatinine 0.9 0.8 0.8 Glucose 217 H 151 H D 276 H D Calcium 7.3 L 7.5 L 7.2 L Liver Function 07/29/24 07/29/24 07/29/24 Range/Units 15:22 19:18 23:29 Albumin 2.6 L 2.6 L 2.6 L (3.5-5.0) gm/dL 07/30/24 07/30/24 07/30/24 Range/Units 03:38 07:35 11:35 Albumin 2.5 L 2.5 L 2.6 L (3.5-5.0) gm/dL ABG Interpretation ABG results: 07/29/24 07/29/24 07/29/24 02:10 04:37 05:30 ABG pH 7.12 L* ABG pCO2 10 L* ABG pO2 131 H ABG HCO3 3 L* ABG O2 Saturation 99 H ABG Base Excess -24 L VBG pH 6.95 L 6.97 L VBG pCO2 12 L 20 L VBG pO2 110 H 54 D VBG Base Excess -28 L -26 L 07/29/24 07:05 ABG pH ABG pCO2 ABG pO2 ABG HCO3 ABG O2 Saturation ABG Base Excess VBG pH 7.17 L VBG pCO2 14 L VBG pO2 66 H VBG Base Excess -21 L Impressions Impression: Examination: CT abdomen and pelvis without contrast. Coronal 3-D reconstructions. Sagittal 2-D reconstructions. Date and time of exam:July 30, 2024 1154 hours INDICATIONS: Onset generalized abdominal pain today CTDI: vol (mGy): 6.56 DLP: (mGycm): 367 Technique: Axial images of the abdomen have been obtained, 3 mm slice thickness Intravenous contrast material has not been administered. Low dose protocols were performed. One or more of the following dose reduction techniques were used; automated exposure control, adjustment of the mA and/or KV according to patient size, use of iterative reconstruction technique. Findings: Atelectasis in the lower lung zones with minimal pleural fluid No focal liver or splenic lesion Suspicious for gallbladder wall thickening No pancreatic mass Kidneys appear enlarged and edematous with perinephric stranding No ureteral calculi Mild free fluid in the abdomen and pelvis Normal appendix No bowel obstruction Anteverted uterus, suspicious for 20 mm right follicular cyst Urinary bladder Del Castillo catheter urinary bladder wall thickening up to 5 mm IMPRESSION: Recommend hepatobiliary sonography follow-up to exclude gallbladder wall thickening Kidneys appear enlarged edematous, consider pyelonephritis No ureteral calculi Cystitis pattern Mild free fluid in the abdomen and pelvis, suspicious for 20 mm right ovarian cyst, recommend pelvic sonography follow-up -------- Examination: Transvaginal ultrasound of the pelvis, complete Technique: Transvaginal sonographic images pelvis performed using mcfarland scale imaging Exam date and time: July 30, 2024 1450 hours INDICATIONS: Pelvic and abdominal pain beginning 2 days ago FINDINGS: Uterus 6.7 cm endometrial stripe 0.8 cm No uterine mass or intrauterine gestation Right ovary obscured by bowel gas Left ovary 2.2 cm arterial flow 11 mm follicular cyst IMPRESSION: No uterine mass or intrauterine gestation 8 mm left ovarian follicular cyst. Assessment and Plan Assessment and plan (1) Functional ovarian cysts: Status: Acute Assessment and plan: Clinical query was whether PID could be present. Elise has no vaginal discharge, no hx of STI. No imaging findings suspicious for pyosalpinx or TOA. I reviewed relevant labs and imaging and there is no need for further follow up with [employer] regarding the benign imaging findings. Functional ovarian cysts and mild pelvic fluid are normal findings in a woman age 44. Dr[address] Autumn [place] (2) Pyelonephritis: Status: Acute (3) Bacteremia: Status: Acute
--- NOTE | 2024-07-30 16:48 | ESPR_ITS ---
<Statement entered by Susanna Sandoval MD - 08/03/24 08:57> I reviewed above note and agree with findings and plans. I have also personally examined the patient with medicine team and went over assessment and plan with medical team including internet researcher and resident physician. Documentation for date of: 07/30/24 Subjective Subjective Interval history: Patient downgraded from ICU Patient admitted for altered mental status, found to have DKA. With the progression of hospital course patient developed GNR bacteremia, has pyelonephritis, on IV antibiotics Patient's anion gap closed x 2, stable to be downgraded Unable to tolerate p.o. diet well, started on Reglan pushes Currently on IV antihypertensive management Exam Vital Signs Temp Pulse Resp BP Pulse Ox O2 Del Method 98.0 F 113 H 12 140/83 H 99 Room Air 07/30/24 16:00 07/30/24 16:00 07/30/24 16:00 07/30/24 16:00 07/30/24 16:00 07/30/24 16:00 Narrative Exam Constitutional Alert, oriented x 3 and comfortable. Young Female HEENT Vision grossly intact. Patent nares. Trachea midline Respiratory Chest normal on inspection and clear auscultation bilaterally Cardiovascular S1 and S2 audible, RRR. No murmurs carotid bruit. No gross JVD. Abdominal Soft and nontender to palpation. BS + Genitourinary No bladder tenderness. Normal to palpation Musculoskeletal Extremities tone within normal limits. No LE edema. Neurological CN II - XII grossly intact. Extremity motor and sensation grossly intact. Skin Warm, dry and intact. No apparent lesions. Psychiatric Patient has good affect, is cooperative Objective Labs 07/30/24 03:38 07/30/24 11:35 Labs: Laboratory Results - last 24 hr 07/29/24 07/29/24 07/29/24 15:22 19:18 23:29 WBC RBC Hgb Hct MCV MCH MCHC RDW Std Deviation Plt Count Neut % (Auto) Lymph % (Auto) [place] % (Auto) Eos % (Auto) Baso % (Auto) Neut # (Auto) Lymph # (Auto) [place] # (Auto) Eos # (Auto) Baso # (Auto) Immature Gran # (Auto) Absolute Nucleated RBC Immature Gran % Nucleated RBC % Sodium 147 H 149 H 149 H Potassium 4.1 3.6 D 3.3 L Chloride 119 H 119 H 118 H Carbon Dioxide 14.6 L* 19.5 L 20.5 Anion Gap 13 11 11 BUN 34 H 30 H 21 Creatinine 1.3 1.2 1.1 Estim Creat Clear Calc 52.2 L 56.6 L 61.7 eGFR 52 L 58 L > 60 BUN/Creatinine Ratio 26 H 25 H 19 Glucose 276 H D 258 H 215 H Calculated Osmolality 310 H 311 H 305 H Calcium 7.6 L 7.5 L 7.6 L Corrected Calcium 8.7 8.6 8.7 Phosphorus 1.3 L 1.2 L 0.6 L* Magnesium 1.4 L 1.6 1.8 Albumin 2.6 L 2.6 L 2.6 L 07/30/24 07/30/24 07/30/24 03:38 07:35 11:35 WBC 22.8 H D RBC 3.70 L Hgb 11.4 L Hct 31.2 L MCV 84 MCH 30.8 MCHC 36.5 RDW Std Deviation 42.1 Plt Count 181 D Neut % (Auto) 93 H Lymph % (Auto) 3 L [place] % (Auto) 2 Eos % (Auto) 0 Baso % (Auto) 0 Neut # (Auto) 21.1 H Lymph # (Auto) 0.7 L [place] # (Auto) 0.5 Eos # (Auto) 0.0 Baso # (Auto) 0.1 Immature Gran # (Auto) 0.40 H Absolute Nucleated RBC 0.00 Immature Gran % 2 H Nucleated RBC % 0 Sodium 147 H 148 H 142 Potassium 3.7 3.2 L D 3.5 Chloride 117 H 113 H 109 H Carbon Dioxide 23.6 25.6 25.7 Anion Gap 6 L 9 7 BUN 17 17 14 Creatinine 0.9 0.8 0.8 Estim Creat Clear Calc 75.5 84.9 84.9 eGFR > 60 > 60 > 60 BUN/Creatinine Ratio 19 21 H 18 Glucose 217 H 151 H D 276 H D Calculated Osmolality 300 H 298 H 293 Calcium 7.3 L 7.5 L 7.2 L Corrected Calcium 8.5 8.7 8.3 L Phosphorus 1.1 L 1.1 L 2.2 L Magnesium 1.6 1.5 L 2.2 Albumin 2.5 L 2.5 L 2.6 L ABG Interpretation ABG results: 07/29/24 07/29/24 07/29/24 02:10 04:37 05:30 ABG pH 7.12 L* ABG pCO2 10 L* ABG pO2 131 H ABG HCO3 3 L* ABG O2 Saturation 99 H ABG Base Excess -24 L VBG pH 6.95 L 6.97 L VBG pCO2 12 L 20 L VBG pO2 110 H 54 D VBG Base Excess -28 L -26 L 07/29/24 07:05 ABG pH ABG pCO2 ABG pO2 ABG HCO3 ABG O2 Saturation ABG Base Excess VBG pH 7.17 L VBG pCO2 14 L VBG pO2 66 H VBG Base Excess -21 L Quality Measures Quality Measures none Assessment & Plan Assessment Current Active Medications: Generic Name Dose Route Start Last Admin Trade Name Freq PRN Reason Stop Dose Admin Acetaminophen 650 mg 07/29/24 18:31 Acetaminophen 325 Mg Tablet PO 08/28/24 04:59 Q4HR PRN Pain 1-3 or Temp >100.3 Dextrose 50 ml 07/30/24 07:07 Dextrose 50%-Water Inj 50 Ml Syringe IV 08/29/24 07:06 Q15MIN PRN BG <50 OR BG <70 & pt unresponsive Enalaprilat 2.5 mg 07/30/24 18:00 Enalaprilat Inj 1.25 Mg/Ml Vial IVP 08/29/24 17:59 Q6HR EDE Enoxaparin Sodium 40 mg 07/30/24 21:00 Enoxaparin Sod Inj 40 Mg/0.4 Ml Syringe SC 08/13/24 20:59 HS EDE Glucagon 1 mg 07/30/24 07:07 Glucagon Inj 1 Mg Vial IM Q15MIN PRN BG <70, and no IV access Hydromorphone HCl 0.5 mg 07/29/24 16:52 07/30/24 08:17 Hydromorphone Inj 2 Mg/Ml Vial IVP 08/03/24 16:51 0.5 mg Q4HR PRN Administration PAIN 4-10 Ceftriaxone Sodium 2 gm/ 50 mls @ 100 mls/hr 07/30/24 09:00 07/30/24 08:14 Sodium Chloride IV 08/06/24 08:59 100 mls/hr QDAY EDE Administration Potassium Phosphate 15 mmol in 250 mls @ 62.5 mls/hr 07/30/24 09:13 07/30/24 14:32 Pot Phos 15 Mmol In Ns 250 Ml IV 07/30/24 17:12 62.5 mls/hr Q4H EDE Administration Acetaminophen 1,000 mg in 100 mls @ 250 mls/hr 07/30/24 10:23 07/30/24 10:51 Ofirmev Inj IV 07/31/24 00:23 250 mls/hr Q6HR PRN Administration Temp >100 Azithromycin 500 mg/ Sodium 250 mls @ 250 mls/hr 07/30/24 13:37 07/30/24 14:27 Chloride IV 08/06/24 13:36 250 mls/hr QDAY EDE Administration Insulin Glargine 20 unit 07/30/24 21:00 Insulin Glargine (Lantus) 5 Unit/0.05 Ml (Per 5 Units) SC 07/30/24 21:01 HS ONE Insulin Human Lispro 10 unit 07/30/24 08:00 07/30/24 12:08 Insulin Lispro (Admelog) 1 Unit/0.01 Ml Unit SC 08/29/24 07:59 10 unit TIDWM EDE Administration Insulin Human Lispro 0 unit 07/30/24 07:30 07/30/24 12:09 Insulin Lispro (Admelog) 1 Unit/0.01 Ml Unit SC 08/29/24 07:29 4 unit ACHS EDE Administration Protocol Labetalol HCl 10 mg 07/30/24 15:32 Labetalol Inj 5 Mg/Ml Vial 20 Ml IVP 08/29/24 10:18 Q4HR PRN Sbp > 170 Magnesium Hydroxide 30 ml 07/29/24 05:00 Milk Of Magnesia Susp 30 Ml Udc PO 08/28/24 04:59 QDAY PRN CONSTIPATION Metoclopramide HCl 10 mg 07/30/24 16:00 Metoclopramide Inj 5 Mg/Ml Vial 2 Ml IVP 08/29/24 15:59 Q6HR EDE Protocol Pantoprazole Sodium 40 mg 07/29/24 09:00 07/30/24 08:18 Pantoprazole Inj 40 Mg Vial IVP 08/28/24 08:59 40 mg QDAY EDE Administration Plan Summary: A 44-year-old female with history of HTN, DM presented with altered mental status tachypneic, tachycardic, hypertensive with severe metabolic acidosis secondary to diabetic ketoacidosis along with VIANCA and possible urinary tract infection. Patient found to have DKA, gap closed x 2 and patient was downgraded to floors for further management of GNR bacteremia, pyelonephritis and diabetes. #Newly diagnosed type II IDDM #Diabetic ketoacidosis - resolved Patient has history of gestational diabetes mellitus, presented with altered mental status, was found to have DKA, initially pH 7.12, pCO2 10, beta hydroxybutyrate 5.6, anion gap 7, A1c 11.13. Anion gap closed x 2, patient started feeding, does have some nausea and vomiting otherwise stable. - Continue insulin glargine 35U SC at bedtime, - Continue lispro 10 units SC 3 times daily with meals - Sliding scale insulin - Referral to dietitian - Diabetic education #GNR bacteremia secondary to bilateral Pyelonephritis Blood culture grew GNR preliminary. Patient had history of left flank pain and urinalysis showed leukocyte esterase positive. CT abdomen/pelvis showed bilaterally severely edematous kidneys, perinephric fat stranding suggestive of pyelonephritis. -Continue ceftriaxone 2 g IV daily started on [07/29- -follow speciation on blood culture #2cm Ovarian Cyst #Free Fluid in Abdomen CT abdomen/pelvis showed bilaterally severely edematous kidneys, perinephric fat stranding suggestive of pyelonephritis. 2 cm right ovarian cyst with mild free fluid in abdomen pelvis. Transvaginal ultrasound shows no intrauterine mass or intrauterine gestation, 8 mm left ovarian follicle cyst - MARGIN TRIMMER consulted, appreciate recommendations #Hypertensive urgency #Hypertension Dx: Uncontrolled HTN, pain, bacteremia -Vasotec 1.25 Mg IV Q6 hourly, to increase by 1.25 Mg q. hourly up to a max of 5 mg Q6 hourly. -Labetalol 10 Mg IV every 4 hourly as needed for SBP greater than 170 -Will transition to p.o. medication in a.m. #Nausea and vomiting In setting of DKA versus diabetic gastroparesis -Metoclopramide 10 mg IV q6hrly EDE - Consider Zofran if needed #Normocytic Anemia #Leukocytosis, resolving -Follow CBC in a.m. #VIANCA , prerenal secondary to dehydration and pyelonephritis?resolved #Lactic acidosis - resolved DVT prophylaxis: Lovenox GI prophylaxis: IV Protonix Diet: Diabetic diet Lines: Peripheral IV Code status: Full code Case discussed with Attending Dr. Sandoval. Chung Murphy PGY1 Disclaimer: This note was dictated by speech recognition. Minor errors in asphalt patcher may be present due to voice recognition software.
[2024-07-30] MEDS: ENALAPRILAT INJ 1.25 MG/ML VIAL 2.5 MG IVP ×2 (17:02→23:28)
--- NOTE | 2024-07-30 17:18 | PC.DIETICIAN ---
Nutrition Education (A1C=11.3): Patient was educated on dietary management of diabetes; written material and a FreeStyle Stone 3 Plus sensor were provided. *Consider prescribing a FreeStyle Stone 3 Plus sensor prior to discharge.
[2024-07-30] MEDS: INSULIN GLARGINE (Lantus) 5 UNIT/0.05 ML (PER 5 UNITS) 20 UNIT SC (20:31)
[2024-07-30] MEDS: ENOXAPARIN SOD INJ 40 MG/0.4 ML SYRINGE SC (20:32)
--- NOTE | 2024-07-30 23:06 | EKG_ITS ---
[facility] Test Date: 2024-07-30 Pat Name: ALTA MENDIOLA [facility] Gender[facility] Retail Assistant Manager: HEATHER : 1980 Requested By: Farhat Birmingham Order Number: [id number] Reading MD: Farhat Birmingham Measurements Intervals [place] Rate: 129 P: 59 [place]: 114 QRS: 55 QRSD: 86 T: 65 QT: 334 QTc: 490 Interpretive Statements SINUS TACHYCARDIA WITH SHORT [place] INTERVAL NONSPECIFIC T-WAVE ABNORMALITY ABNORMAL RHYTHM ECG No previous ECG available for comparison /store/S0/[id number]/[id number].pdf
[2024-07-30] MEDS: SODIUM CHLORIDE 0.9% 500 ML 500 ML 999 ML IV (23:43)
[2024-07-31] VITALS (10 sets, daily range): BP systolic 125–166; BP diastolic 74–94; PULSE 78–140; RESP 15–20; TEMP 36.2–37.9; O2SAT 95–99; BMI 19.9
[2024-07-31] MEDS: SODIUM CHLORIDE 0.9% 1000 ML 1,000 ML 80 ML IV (00:31)
[2024-07-31] MEDS: ENALAPRILAT INJ 1.25 MG/ML VIAL 2.5 MG IVP (05:21)
[2024-07-31] MEDS: METOCLOPRAMIDE INJ 5 MG/ML VIAL 2 ML 10 MG IVP ×3 (05:21→17:27)
[2024-07-31 06:17] LABS: Basophils % (Auto) 0 % (0-2.5); Eosinophils % (Auto) 0 % (0-10); Hematocrit 33.2 % (36.0-46.0); Hemoglobin 11.7 g/dL (12.0-16.0); Immature Granulocytes % (Auto) 2 % (0-0); Immature Granulocytes Auto 0.28 Thou/mm3 (0.00-0.00); Lymphocytes # (Auto) 0.9 Thou/mm3 (1.0-4.8); Lymphocytes % (Auto) 6 % (10-50); Mean Corpuscular HGB Conc 35.2 g/dl (31.0-37.0); Mean Corpuscular Hemoglobin 30.5 pg (25.0-35.0); Mean Corpuscular Volume 87 fL (80-100); Monocytes # (Auto) 0.3 Thou/mm3 (0.0-0.8); Monocytes % (Auto) 2 % (0-12); Neutrophils % (Auto) 91 % (37-80); Nucleated Red Blood Cell % 0 /100 WBC (0); Platelet Count 157 Thou/mm3 (140-440); RDW Standard Deviation 43.4 fL (36.4-46.3); Red Blood Count 3.84 Miln/mm3 (4.00-5.20); White Blood Count 16.5 Thou/mm3 (3.6-11.0)
[2024-07-31 06:54] LABS: Albumin, Serum 2.6 gm/dL (3.5-5.0); Anion Gap 11 (7-16); BUN/Creatinine Ratio 20 Ratio (12-20); Blood Urea Nitrogen 14 mg/dL (9-23); Calcium (Corrected) 8.1 mg/dL (8.5-10.1); Carbon Dioxide 31.1 mMol/L (20.0-31.0); Chloride 105 mMol/L (98-107); Creatinine (Component) 0.7 mg/dL (0.6-1.3); Glucose 187 mg/dL (74-106); Osmolality,Calculated 297 (275-295); Phosphorous 1.7 mg/dL (2.4-5.1); Potassium 2.8 mMol/L (3.4-5.1); Sodium 147 mMol/L (136-145); eGFR > 60 See Note
[2024-07-31] MEDS: INSULIN LISPRO (AdmeLOG) 1 UNIT/0.01 ML UNIT 10 UNIT SC ×2 (07:17→12:27)
[2024-07-31] MEDS: INSULIN LISPRO (AdmeLOG) 1 UNIT/0.01 ML UNIT SC ×2 (07:17→23:05)
[2024-07-31] MEDS: POTASSIUM CHLORIDE 10% 20 MEQ/15 ML UDC 40 MEQ PO (08:46)
[2024-07-31] MEDS: cefTRIAXone 2 GM in SODIUM CHLORIDE 0.9% (Popper) 50 ML IV (08:49)
[2024-07-31] MEDS: POTASSIUM PHOS 22.5 MMOL in SODIUM CHLORIDE 0.9% 500 ML 500 ML 82.778 MMOL IV (10:12)
[2024-07-31] MEDS: PANTOPRAZOLE INJ 40 MG VIAL IVP (10:13)
[2024-07-31] MEDS: LOSARTAN POTASSIUM 25 MG TABLET 50 MG PO (10:14)
--- NOTE | 2024-07-31 12:13 | ESPR_ITS ---
<Statement entered by Susanna Sandoval MD - 08/03/24 08:58> I reviewed above note and agree with findings and plans. I have also personally examined the patient with medicine team and went over assessment and plan with medical team including real estate internship and resident physician. Documentation for date of: 07/31/24 Subjective Subjective Interval history: Patient seen and examined at bedside. Labs and vitals reviewed, electrolytes replaced, [place] discontinued. Patient in sinus tachycardia overnight, was given 500 cc NS bolus, started on maintenance fluid Patient reports that she is able to tolerate p.o. diet well, started on losartan 50 mg daily. Patient continues to remain tachycardic-will continue maintenance fluid Patient will be started on 20 units Lantus at bedtime, will continue with sliding scale insulin and 10 units 3 times daily with meals Will optimize insulin regimen and blood pressure regimen today Will continue IV ceftriaxone for bacteremia, discontinued azithromycin. Will continue with scheduled Reglan for today. Exam Vital Signs Temp Pulse Resp BP Pulse Ox O2 Del Method 97.7 F 131 H 18 125/80 97 Room Air 07/31/24 12:00 07/31/24 12:00 07/31/24 12:00 07/31/24 10:14 07/31/24 12:00 07/31/24 12:00 Narrative Exam Constitutional: Alert, oriented x 3 and comfortable. Young Female HEENT: Vision grossly intact. Patent nares. Trachea midline Respiratory: Chest normal on inspection and clear auscultation bilaterally Cardiovascular: S1 and S2 audible, sinus tachycardia. No murmurs carotid bruit. No gross JVD. Abdominal: Soft and nontender to palpation. BS + Genitourinary: No bladder tenderness. Normal to palpation Musculoskeletal: Extremities tone within normal limits. No LE edema. Neurological: CN II - XII grossly intact. Extremity motor and sensation grossly intact. Skin: Warm, dry and intact. No apparent lesions. Psychiatric: Patient has good affect, is cooperative Objective Labs 07/31/24 04:25 07/31/24 04:25 Labs: Laboratory Results - last 24 hr 07/30/24 07/31/24 11:35 04:25 WBC 16.5 H D RBC 3.84 L Hgb 11.7 L Hct 33.2 L MCV 87 MCH 30.5 MCHC 35.2 RDW Std Deviation 43.4 Plt Count 157 Neut % (Auto) 91 H Lymph % (Auto) 6 L [place] % (Auto) 2 Eos % (Auto) 0 Baso % (Auto) 0 Neut # (Auto) 15.0 H Lymph # (Auto) 0.9 L [place] # (Auto) 0.3 Eos # (Auto) 0.0 Baso # (Auto) 0.0 Immature Gran # (Auto) 0.28 H Absolute Nucleated RBC 0.00 Immature Gran % 2 H Nucleated RBC % 0 Sodium 142 147 H Potassium 3.5 2.8 L D Chloride 109 H 105 Carbon Dioxide 25.7 31.1 H Anion Gap 7 11 BUN 14 14 Creatinine 0.8 0.7 Estim Creat Clear Calc 84.9 97.0 eGFR > 60 > 60 BUN/Creatinine Ratio 18 20 Glucose 276 H D 187 H D Calculated Osmolality 293 297 H Calcium 7.2 L 7.0 L Corrected Calcium 8.3 L 8.1 L Phosphorus 2.2 L 1.7 L Magnesium 2.2 Albumin 2.6 L 2.6 L ABG Interpretation ABG results: 07/29/24 07/29/24 07/29/24 02:10 04:37 05:30 ABG pH 7.12 L* ABG pCO2 10 L* ABG pO2 131 H ABG HCO3 3 L* ABG O2 Saturation 99 H ABG Base Excess -24 L VBG pH 6.95 L 6.97 L VBG pCO2 12 L 20 L VBG pO2 110 H 54 D VBG Base Excess -28 L -26 L 07/29/24 07:05 ABG pH ABG pCO2 ABG pO2 ABG HCO3 ABG O2 Saturation ABG Base Excess VBG pH 7.17 L VBG pCO2 14 L VBG pO2 66 H VBG Base Excess -21 L Quality Measures Quality Measures none Assessment & Plan Assessment Current Active Medications: Generic Name Dose Route Start Last Admin Trade Name Freq PRN Reason Stop Dose Admin Acetaminophen 650 mg 07/29/24 18:31 Acetaminophen 325 Mg Tablet PO 08/28/24 04:59 Q4HR PRN Pain 1-3 or Temp >100.3 Dextrose 50 ml 07/30/24 07:07 Dextrose 50%-Water Inj 50 Ml Syringe IV 08/29/24 07:06 Q15MIN PRN BG <50 OR BG <70 & pt unresponsive Enalaprilat 2.5 mg 07/30/24 18:00 07/31/24 05:21 Enalaprilat Inj 1.25 Mg/Ml Vial IVP 08/29/24 17:59 2.5 mg Q6HR EDE Administration Enoxaparin Sodium 40 mg 07/30/24 21:00 07/30/24 20:32 Enoxaparin Sod Inj 40 Mg/0.4 Ml Syringe SC 08/13/24 20:59 40 mg HS EDE Administration Glucagon 1 mg 07/30/24 07:07 Glucagon Inj 1 Mg Vial IM Q15MIN PRN BG <70, and no IV access Hydromorphone HCl 0.5 mg 07/29/24 16:52 07/30/24 08:17 Hydromorphone Inj 2 Mg/Ml Vial IVP 08/03/24 16:51 0.5 mg Q4HR PRN Administration PAIN 4-10 Sodium Chloride 1,000 mls @ 80 mls/hr 07/30/24 23:57 07/31/24 00:31 Ns IV 07/31/24 12:26 80 mls/hr .[id number] ONE Administration Potassium Phosphate 22.5 mmol/ 507.5 mls @ 82.778 mls/hr 07/31/24 08:03 07/31/24 10:12 Sodium Chloride IV 07/31/24 14:10 82.778 mls/hr X1 ONE Administration Ceftriaxone Sodium/Dextrose 2 gm in 50 mls @ 100 mls/hr 08/01/24 09:00 Rocephin/D5w 2gm IV 08/06/24 08:59 QDAY [facility] Insulin Glargine 20 unit 07/31/24 21:00 Insulin Glargine (Lantus) 5 Unit/0.05 Ml (Per 5 Units) SC 08/30/24 20:59 HS EDE Insulin Human Lispro 10 unit 07/30/24 08:00 07/31/24 07:17 Insulin Lispro (Admelog) 1 Unit/0.01 Ml Unit SC 08/29/24 07:59 10 unit TIDWM EDE Administration Insulin Human Lispro 0 unit 07/30/24 07:30 07/31/24 07:17 Insulin Lispro (Admelog) 1 Unit/0.01 Ml Unit SC 08/29/24 07:29 2 unit ACHS EDE Administration Protocol Labetalol HCl 10 mg 07/30/24 15:32 Labetalol Inj 5 Mg/Ml Vial 20 Ml IVP 08/29/24 10:18 Q4HR PRN Sbp > 170 Losartan Potassium 50 mg 07/31/24 10:15 07/31/24 10:14 Losartan Potassium 25 Mg Tablet PO 08/30/24 10:14 50 mg QDAY EDE Administration Magnesium Hydroxide 30 ml 07/29/24 05:00 Milk Of Magnesia Susp 30 Ml Udc PO 08/28/24 04:59 QDAY PRN CONSTIPATION Metoclopramide HCl 10 mg 07/30/24 16:00 07/31/24 05:21 Metoclopramide Inj 5 Mg/Ml Vial 2 Ml IVP 08/29/24 15:59 10 mg Q6HR EDE Administration Protocol Pantoprazole Sodium 40 mg 07/29/24 09:00 07/31/24 10:13 Pantoprazole Inj 40 Mg Vial IVP 08/28/24 08:59 40 mg QDAY EDE Administration Plan Summary: A 44-year-old female with history of HTN, DM presented with altered mental status tachypneic, tachycardic, hypertensive with severe metabolic acidosis secondary to diabetic ketoacidosis along with VIANCA and possible urinary tract infection. Patient found to have DKA, gap closed x 2 and patient was downgraded to floors for further management of GNR bacteremia, pyelonephritis and diabetes. #Newly diagnosed type II IDDM #Diabetic ketoacidosis - resolved Patient has history of gestational diabetes mellitus, presented with altered mental status, was found to have DKA, initially pH 7.12, pCO2 10, beta hydroxybutyrate 5.6, anion gap 7, A1c 11.3. Anion gap closed x 2, patient started feeding, does have some nausea and vomiting otherwise stable. - Continue insulin glargine 20 units at bedtime - Continue lispro 10 units SC 3 times daily with meals - Sliding scale insulin - Referral to dietitian - Diabetic education # E. coli bacteremia secondary to # Bilateral pyelonephritis # Complicated E. coli UTI # Sinus tachycardia Blood culture grew GNR preliminary. Patient had history of left flank pain and urinalysis showed leukocyte esterase positive. CT abdomen/pelvis showed bilaterally severely edematous kidneys, perinephric fat stranding suggestive of pyelonephritis. Cultures show E. coli sensitive to ceftriaxone -Continue ceftriaxone 2 g IV daily started on [07/29- -IV maintenance fluids - Monitor for fever #Hypertensive urgency, resolved #Hypertension -Vasotec discontinued, started on losartan 50 mg daily -Labetalol 10 Mg IV every 4 hourly as needed for SBP greater than 170 #Nausea and vomiting In setting of DKA versus diabetic gastroparesis -Metoclopramide 10 mg IV q6hrly EDE -Patient is tolerating diet well compared to yesterday. -Consider Zofran if needed #Normocytic Anemia #Leukocytosis, resolving -Follow CBC in a.m. #2cm Ovarian Cyst #Free Fluid in Abdomen CT abdomen/pelvis showed bilaterally severely edematous kidneys, perinephric fat stranding suggestive of pyelonephritis. 2 cm right ovarian cyst with mild free fluid in abdomen pelvis. Transvaginal ultrasound shows no intrauterine mass or intrauterine gestation, 8 mm left ovarian follicle cyst - LOCAL INTERMODAL TRUCK DRIVER consulted, recommends no further intervention/follow-up #VIANCA , prerenal secondary to dehydration and pyelonephritis?resolved #Lactic acidosis - resolved DVT prophylaxis: Lovenox GI prophylaxis: IV Protonix Diet: Diabetic diet Lines: Peripheral IV Code status: Full code Case discussed with Attending Dr. Sandoval. Chung Murphy PGY1 Disclaimer: This note was dictated by speech recognition. Minor errors in purchasing manager/sales may be present due to voice recognition software.
[2024-07-31] MEDS: RINGERS LACTATED 1000 ML 1,000 ML 60 ML IV (15:34)
[2024-07-31] MEDS: ENOXAPARIN SOD INJ 40 MG/0.4 ML SYRINGE SC (22:56)
[2024-07-31] MEDS: INSULIN GLARGINE (Lantus) 5 UNIT/0.05 ML (PER 5 UNITS) 20 UNIT SC (23:04)
[2024-08-01] VITALS (9 sets, daily range): BP systolic 136–152; BP diastolic 86–94; PULSE 102–164; RESP 12–21; TEMP 35.9–37.7; O2SAT 97–99; BMI 20.4
[2024-08-01] MEDS: METOCLOPRAMIDE INJ 5 MG/ML VIAL 2 ML 10 MG IVP ×2 (00:16→06:20)
[2024-08-01] MEDS: Milk Of Magnesia Susp 30 ML UDC PO (00:58)
[2024-08-01 06:01] LABS: Basophils % (Auto) 0 % (0-2.5); Eosinophils % (Auto) 0 % (0-10); Hematocrit 33.2 % (36.0-46.0); Hemoglobin 11.5 g/dL (12.0-16.0); Immature Granulocytes % (Auto) 2 % (0-0); Immature Granulocytes Auto 0.25 Thou/mm3 (0.00-0.00); Lymphocytes # (Auto) 1.4 Thou/mm3 (1.0-4.8); Lymphocytes % (Auto) 9 % (10-50); Mean Corpuscular HGB Conc 34.6 g/dl (31.0-37.0); Mean Corpuscular Hemoglobin 30.2 pg (25.0-35.0); Mean Corpuscular Volume 87 fL (80-100); Monocytes # (Auto) 0.4 Thou/mm3 (0.0-0.8); Monocytes % (Auto) 3 % (0-12); Neutrophils # (Auto) 13.4 Thou/mm3 (1.8-7.7); Neutrophils % (Auto) 87 % (37-80); Nucleated Red Blood Cell % 0 /100 WBC (0); Platelet Count 192 Thou/mm3 (140-440); RDW Standard Deviation 44.5 fL (36.4-46.3); Red Blood Count 3.81 Miln/mm3 (4.00-5.20); White Blood Count 15.4 Thou/mm3 (3.6-11.0)
[2024-08-01 06:36] LABS: Albumin, Serum 2.9 gm/dL (3.5-5.0); Anion Gap 8 (7-16); BUN/Creatinine Ratio 16 Ratio (12-20); Blood Urea Nitrogen 11 mg/dL (9-23); Calcium 7.7 mg/dL (8.3-10.6); Calcium (Corrected) 8.6 mg/dL (8.5-10.1); Carbon Dioxide 32.3 mMol/L (20.0-31.0); Chloride 104 mMol/L (98-107); Creatinine (Component) 0.7 mg/dL (0.6-1.3); Estimated Creatinine Clearance 95.4 mL/min (>60); Glucose 96 mg/dL (74-106); Osmolality,Calculated 286 (275-295); Phosphorous 2.2 mg/dL (2.4-5.1); Potassium 2.9 mMol/L (3.4-5.1); Sodium 144 mMol/L (136-145); eGFR > 60 See Note
[2024-08-01] MEDS: RINGERS LACTATED 1000 ML 500 ML 75 ML IV (08:31)
[2024-08-01] MEDS: LOSARTAN POTASSIUM 25 MG TABLET 50 MG PO (08:34)
[2024-08-01] MEDS: cefTRIAXone/D5w 2gm 2 GM/50 ML BAG IV (08:34)
[2024-08-01] MEDS: POTASSIUM CHLORIDE 20 mEq TABCR 40 MEQ PO (08:35)
[2024-08-01] MEDS: PANTOPRAZOLE 40 MG TABLET PO (08:36)
--- NOTE | 2024-08-01 10:47 | ESPR_ITS ---
<Statement entered by Susanna Sandoval MD - 08/03/24 13:29> I reviewed above note and agree with findings and plans. I have also personally examined the patient with medicine team and went over assessment and plan with medical team including undergraduate intern and resident physician. Documentation for date of: 08/01/24 Subjective Subjective Interval history: Patient seen and examined at bedside. Patient has no current complaints, she is wondering when she can go home. Patient continues to be in sinus tachycardic, net hospitalization patient is -2 L, patient be given 2 L IV LR-will monitor heart rate closely. Will continue IV antibiotics for bacteremia Patient has minimal p.o. intake, change Reglan to as needed, advance diet to carb consistent, will monitor response. Patient's insulin regimen changed to 22 units of glargine at bedtime, 8 units 3 times daily with meals, will continue with sliding scale AC. Will optimize insulin regimen, blood pressure well-controlled with losartan. Anticipate discharge in next 24 hours, pending improvement heart rate. Exam Vital Signs Temp Pulse Resp BP Pulse Ox O2 Del Method 96.8 F 106 H 17 142/86 H 97 Room Air 08/01/24 08:00 08/01/24 08:34 08/01/24 08:00 08/01/24 08:34 08/01/24 08:00 08/01/24 08:00 Narrative Exam Constitutional: Alert, oriented x 3 and comfortable. Young Female HEENT: Vision grossly intact. Patent nares. Trachea midline Respiratory: Chest normal on inspection and clear auscultation bilaterally Cardiovascular: S1 and S2 audible, sinus tachycardia. No murmurs carotid bruit. No gross JVD. Abdominal: Soft and nontender to palpation. BS + Genitourinary: No bladder tenderness. Normal to palpation Musculoskeletal: Extremities tone within normal limits. No LE edema. Neurological: CN II - XII grossly intact. Extremity motor and sensation grossly intact. Skin: Warm, dry and intact. No apparent lesions. Psychiatric: Patient has good affect, is cooperative Objective Labs 08/01/24 04:23 08/01/24 04:23 Labs: Laboratory Results - last 24 hr 08/01/24 04:23 WBC 15.4 H RBC 3.81 L Hgb 11.5 L Hct 33.2 L MCV 87 MCH 30.2 MCHC 34.6 RDW Std Deviation 44.5 Plt Count 192 D Neut % (Auto) 87 H Lymph % (Auto) 9 L [place] % (Auto) 3 Eos % (Auto) 0 Baso % (Auto) 0 Neut # (Auto) 13.4 H Lymph # (Auto) 1.4 [place] # (Auto) 0.4 Eos # (Auto) 0.0 Baso # (Auto) 0.0 Immature Gran # (Auto) 0.25 H Absolute Nucleated RBC 0.00 Immature Gran % 2 H Nucleated RBC % 0 Sodium 144 Potassium 2.9 L Chloride 104 Carbon Dioxide 32.3 H Anion Gap 8 BUN 11 Creatinine 0.7 Estim Creat Clear Calc 95.4 eGFR > 60 BUN/Creatinine Ratio 16 Glucose 96 D Calculated Osmolality 286 Calcium 7.7 L Corrected Calcium 8.6 Phosphorus 2.2 L Albumin 2.9 L ABG Interpretation ABG results: 07/29/24 07/29/24 07/29/24 02:10 04:37 05:30 ABG pH 7.12 L* ABG pCO2 10 L* ABG pO2 131 H ABG HCO3 3 L* ABG O2 Saturation 99 H ABG Base Excess -24 L VBG pH 6.95 L 6.97 L VBG pCO2 12 L 20 L VBG pO2 110 H 54 D VBG Base Excess -28 L -26 L 07/29/24 07:05 ABG pH ABG pCO2 ABG pO2 ABG HCO3 ABG O2 Saturation ABG Base Excess VBG pH 7.17 L VBG pCO2 14 L VBG pO2 66 H VBG Base Excess -21 L Quality Measures Quality Measures none Assessment & Plan Assessment Current Active Medications: Generic Name Dose Route Start Last Admin Trade Name Freq PRN Reason Stop Dose Admin Acetaminophen 650 mg 07/29/24 18:31 Acetaminophen 325 Mg Tablet PO 08/28/24 04:59 Q4HR PRN Pain 1-3 or Temp >100.3 Hydrocodone Bitart/Acetaminophen 1 tab 08/01/24 08:04 Hydrocodone/Apap 5/325 Tablet PO 08/06/24 08:03 Q6HR PRN PAIN SCALE 4-10(Mod-Sev Al Hydrox/Mg Hydrox/Simethicone 30 ml 08/01/24 08:03 Mg Hyd/Al Hyd/Jamilah (Maalox Reg) Susp 30 Ml Udc PO 08/31/24 08:02 QID PRN UPSET STOMACH/INDIGESTION Dextrose 50 ml 07/30/24 07:07 Dextrose 50%-Water Inj 50 Ml Syringe IV 08/29/24 07:06 Q15MIN PRN BG <50 OR BG <70 & pt unresponsive Enoxaparin Sodium 40 mg 07/30/24 21:00 07/31/24 22:56 Enoxaparin Sod Inj 40 Mg/0.4 Ml Syringe SC 08/13/24 20:59 40 mg HS EDE Administration Glucagon 1 mg 07/30/24 07:07 Glucagon Inj 1 Mg Vial IM Q15MIN PRN BG <70, and no IV access Ceftriaxone Sodium/Dextrose 2 gm in 50 mls @ 100 mls/hr 08/01/24 09:00 08/01/24 08:34 Rocephin/D5w 2gm IV 08/06/24 08:59 100 mls/hr QDAY EDE Administration Potassium Phosphate 15 mmol in 250 mls @ 62.5 mls/hr 08/01/24 08:15 Pot Phos 15 Mmol In Ns 250 Ml IV 08/01/24 12:14 X1 ONE Lactated Ringer's 1,000 mls @ 125 mls/hr 08/01/24 10:30 Lactated Ringers IV 08/02/24 02:29 .Q8H [facility] Insulin Glargine 24 unit 08/01/24 21:00 Insulin Glargine (Lantus) 5 Unit/0.05 Ml (Per 5 Units) SC 08/31/24 20:59 HS [facility] Insulin Human Lispro 0 unit 08/01/24 11:30 Insulin Lispro (Admelog) 1 Unit/0.01 Ml Unit SC 08/31/24 11:29 AC [facility] Protocol Insulin Human Lispro 7 unit 08/01/24 08:01 Insulin Lispro (Admelog) 1 Unit/0.01 Ml Unit SC 08/29/24 07:59 TIDWM EDE Losartan Potassium 50 mg 07/31/24 10:15 08/01/24 08:34 Losartan Potassium 25 Mg Tablet PO 08/30/24 10:14 50 mg QDAY EDE Administration Magnesium Hydroxide 30 ml 07/29/24 05:00 08/01/24 00:58 Milk Of Magnesia Susp 30 Ml Udc PO 08/28/24 04:59 30 ml QDAY PRN Administration CONSTIPATION Metoclopramide HCl 10 mg 08/01/24 08:02 Metoclopramide Inj 5 Mg/Ml Vial 2 Ml IVP 08/29/24 15:59 Q6HR PRN NAUSEA OR VOMITING Protocol Pantoprazole Sodium 40 mg 08/01/24 09:00 08/01/24 08:36 Pantoprazole 40 Mg Tablet PO 08/31/24 08:59 40 mg QDAY EDE Administration Plan Summary: A 44-year-old female with history of HTN, DM presented with altered mental status tachypneic, tachycardic, hypertensive with severe metabolic acidosis secondary to diabetic ketoacidosis along with VIANCA and possible urinary tract infection. Patient found to have DKA, gap closed x 2 and patient was downgraded to floors for further management of GNR bacteremia, pyelonephritis and diabetes. #Newly diagnosed type II IDDM #Diabetic ketoacidosis - resolved Patient has history of gestational diabetes mellitus, presented with altered mental status, was found to have DKA, initially pH 7.12, pCO2 10, beta hydroxybutyrate 5.6, anion gap 7, A1c 11.3. Anion gap closed x 2, patient started feeding, does have some nausea and vomiting otherwise stable. - Continue insulin glargine 22 units at bedtime - Continue lispro 8 units SC 3 times daily with meals - Sliding scale insulin - Referral to dietitian - Diabetic education # E. coli bacteremia secondary to # Bilateral pyelonephritis # Complicated E. coli UTI Blood culture grew GNR preliminary. Patient had history of left flank pain and urinalysis showed leukocyte esterase positive. CT abdomen/pelvis showed bilaterally severely edematous kidneys, perinephric fat stranding suggestive of pyelonephritis. Cultures show E. coli sensitive to ceftriaxone -Continue ceftriaxone 2 g IV daily started on [07/29- -IV maintenance fluids - Monitor for fever #Sinus tachycardia Dehydration in setting of DKA, sepsis, net hospitalization patient is -2 L - Will give 2 L LR-125 cc/h. - Monitor heart rate closely. #Hypertensive urgency, resolved #Hypertension -Continue losartan 50 mg daily -Labetalol 10 Mg IV every 4 hourly as needed for SBP greater than 170 #Nausea and vomiting In setting of DKA versus diabetic gastroparesis -Metoclopramide 10 mg IV q6hrly EDE-> changed to as needed -Patient is tolerating diet well compared to yesterday-> advance to carb consistent #Normocytic Anemia #Leukocytosis, resolving -Follow CBC in a.m. #2cm Ovarian Cyst #Free Fluid in Abdomen CT abdomen/pelvis showed bilaterally severely edematous kidneys, perinephric fat stranding suggestive of pyelonephritis. 2 cm right ovarian cyst with mild free fluid in abdomen pelvis. Transvaginal ultrasound shows no intrauterine mass or intrauterine gestation, 8 mm left ovarian follicle cyst - CROCHETER consulted, recommends no further intervention/follow-up #VIANCA , prerenal secondary to dehydration and pyelonephritis?resolved #Lactic acidosis - resolved DVT prophylaxis: Lovenox GI prophylaxis: IV Protonix Diet: Carb consistent low Lines: Peripheral IV Code status: Full code Case discussed with Attending Dr. Sandoval. Chung Murphy PGY1 Disclaimer: This note was dictated by speech recognition. Minor errors in principal accounts clerk may be present due to voice recognition software.
[2024-08-01] MEDS: RINGERS LACTATED 1000 ML 1,000 ML 125 ML IV ×2 (10:56→19:29)
[2024-08-01] MEDS: POT PHOS 15 mMol in NS 250 ML 15 MMOL/250 ML BAG 62.5 MMOL IV (10:57)
[2024-08-01] MEDS: INSULIN LISPRO (AdmeLOG) 1 UNIT/0.01 ML UNIT 7 UNIT SC (11:49)
[2024-08-01] MEDS: INSULIN LISPRO (AdmeLOG) 1 UNIT/0.01 ML UNIT SC ×2 (11:55→12:18)
[2024-08-01] MEDS: INSULIN LISPRO (AdmeLOG) 1 UNIT/0.01 ML UNIT 8 UNIT SC (17:43)
--- NOTE | 2024-08-01 20:30 | PC.NURSE ---
Dr. Rolle made aware of bedside glucose of 109; lantus 22 units is scheduled to be given at 2100. Also made aware pt has poor appetite. Per MD, recheck bedside glucose at 2100, will adjust the units of Lantus to be given if needed.
[2024-08-01] MEDS: ENOXAPARIN SOD INJ 40 MG/0.4 ML SYRINGE SC (20:43)
--- NOTE | 2024-08-01 21:15 | PC.NURSE ---
Called Dr. Rolle made aware of current bedside glucose of 120. Per MD, will change ordered of lantus to 10 units for tonight.
[2024-08-01] MEDS: INSULIN GLARGINE (Lantus) 5 UNIT/0.05 ML (PER 5 UNITS) 10 UNIT SC (21:49)
[2024-08-02] VITALS (7 sets, daily range): BP systolic 139–150; BP diastolic 82–92; PULSE 98–118; RESP 13–20; TEMP 36.6–37.7; O2SAT 97–99; BMI 20.4
[2024-08-02 07:16] LABS: Albumin, Serum 2.6 gm/dL (3.5-5.0); Anion Gap 7 (7-16); BUN/Creatinine Ratio 18 Ratio (12-20); Blood Urea Nitrogen 14 mg/dL (9-23); Calcium 7.4 mg/dL (8.3-10.6); Calcium (Corrected) 8.5 mg/dL (8.5-10.1); Carbon Dioxide 28.3 mMol/L (20.0-31.0); Chloride 106 mMol/L (98-107); Creatinine (Component) 0.8 mg/dL (0.6-1.3); Estimated Creatinine Clearance 83.4 mL/min (>60); Glucose 138 mg/dL (74-106); Magnesium 1.8 mg/dL (1.6-2.6); Osmolality,Calculated 283 (275-295); Potassium 4.1 mMol/L (3.4-5.1); Sodium 141 mMol/L (136-145); eGFR > 60 See Note
[2024-08-02 07:17] LABS: Basophils % (Auto) 0 % (0-2.5); Eosinophils % (Auto) 0 % (0-10); Hemoglobin 10.3 g/dL (12.0-16.0); Immature Granulocytes % (Auto) 1 % (0-0); Immature Granulocytes Auto 0.18 Thou/mm3 (0.00-0.00); Lymphocytes # (Auto) 0.9 Thou/mm3 (1.0-4.8); Lymphocytes % (Auto) 7 % (10-50); Mean Corpuscular HGB Conc 33.2 g/dl (31.0-37.0); Mean Corpuscular Hemoglobin 30.7 pg (25.0-35.0); Mean Corpuscular Volume 92 fL (80-100); Monocytes # (Auto) 0.4 Thou/mm3 (0.0-0.8); Monocytes % (Auto) 3 % (0-12); Neutrophils # (Auto) 11.2 Thou/mm3 (1.8-7.7); Neutrophils % (Auto) 88 % (37-80); Nucleated Red Blood Cell % 0 /100 WBC (0); Platelet Count 208 Thou/mm3 (140-440); RDW Standard Deviation 46.7 fL (36.4-46.3); Red Blood Count 3.36 Miln/mm3 (4.00-5.20); White Blood Count 12.7 Thou/mm3 (3.6-11.0)
[2024-08-02] MEDS: INSULIN LISPRO (AdmeLOG) 1 UNIT/0.01 ML UNIT 8 UNIT SC (07:30)
--- NOTE | 2024-08-02 09:29 | PC.SS ---
Follow up note: Pt is d/c home today.
[2024-08-02] MEDS: PANTOPRAZOLE 40 MG TABLET PO (09:51)
[2024-08-02] MEDS: LOSARTAN POTASSIUM 25 MG TABLET 50 MG PO (09:51)
[2024-08-02] MEDS: cefTRIAXone/D5w 2gm 2 GM/50 ML BAG IV (09:51)
--- NOTE | 2024-08-02 11:06 | ESDS_ITS ---
<Statement entered by Susanna Sandoval MD - 08/03/24 08:59> I reviewed above note and agree with findings and plans. I have also personally examined the patient with medicine team and went over assessment and plan with medical team including buyer intern and resident physician. Planned Discharge Date 08/02/24 DS: Providers Provider Date of admission: 07/29/24 05:00 Primary care physician: Physician No Primary/Family Admitting Provider: Kori Maravilla MD Attending Provider on Admission: Susanna Sandoval MD Consults: 07/29/24 03:28 Referral Registered Dietitian Routine Comment: 07/29/24 05:04 Referral Registered Dietitian Routine Comment: 07/30/24 14:17 Consult to Gynecology Urgent Comment: Possible PID , ruptured ovarian cyst Consulting Provider: Autumn Canada Attending Provider on DC: Nathaniel Maravilla MD Discharging Provider: Nathaniel Maravilla MD DS: Diagnosis Problem List Completed Was Problem List Reviewed/Reconciled?: Yes Hospital Course Hospital Course Hospital course: Ms. Rollins is a 44-year-old female with history of HTN, DM presented to [facility] ED with altered mental status, tachypneic, tachycardic, hypertensive with severe metabolic acidosis secondary to diabetic ketoacidosis along with acute kidney injury and urinary tract infection. Patient was found to have DKA and admitted to the ICU for insulin drip on 07/29/24, pt was also found to have GNR bacteremia and UTI and both blood and urine cultures grew e.coli. Pt was started on IV antibiotics. Pt blood sugars were under control, anion gap closed and pt was transitioned to subcutaneous insulin and downgraded to floors on 07/30/24. During hospitalization pt also complained of abdominal pain and transvaginal ultrasound showed 8 mm left ovarian follicular cyst. Pt is advised to follow up outpatient with an OBGYN. Pt's blood sugars are well controlled with inpatient insulin regimen. Pt's symptoms have completely resolved, blood sugars are under control, tolerating oral diet, Pt is hemodynamically stable to be discharge home to self care. Pt is given diabetic education and extensively counseled on close monitoring of her blood sugar control. Pt is advised to follow up closely with primary care to monitor blood sugars, so if any adjustments needed can be done. Discharge Recommendations -Follow up with PCP within 1 week of discharge, if you do not have a primary care physician you can come see us at the [facility] by calling [phone] -You have been prescribed antibiotics for 10 more days, please complete the course as directed -For Diabetes you have been prescribed Lantus 20 units daily, please follow up closely with your primary care to make adjustments -For high blood pressure you have been prescribed medication to take once daily, please keep a journal of your daily blood pressure at home to share with your primary care -Continue rest of medications as previously prescribed -Return to the ED or call EMS if symptoms return and/or worsen Hospitalization Diagnosis #Newly diagnosed type II IDDM #Diabetic ketoacidosis - resolved # E. coli bacteremia secondary to # Bilateral pyelonephritis # Complicated E. coli UTI #Sinus tachycardia #Hypertensive urgency, resolved #Hypertension #Nausea and vomiting #Normocytic Anemia #Leukocytosis, resolving #2cm Ovarian Cyst #Free Fluid in Abdomen #VIANCA , prerenal secondary to dehydration and pyelonephritis?resolved #Lactic acidosis - resolved Assessment and plan discussed with my attending physician Dr. Jaime Maravilla (PGY-1)- Internal medicine resident Time Spent with Patient Time attestation: Total time spent providing and/or coordinating discharge services: Time spent: Greater than 30 minutes Quality: Stroke Pt Provided Written Stroke Discharge Instructions: No (STROKE S/S) Exam Vital Signs Temp Pulse Resp BP Pulse Ox O2 Del Method 97.9 F 117 H 15 150/92 H 99 Room Air 08/02/24 08:00 08/02/24 09:51 08/02/24 08:00 08/02/24 09:51 08/02/24 08:00 08/02/24 08:00 Narrative Exam GENERAL: A&Ox3 . Awake, Not in acute distress NEURO: no focal neurological deficits HEENT: Atraumatic, Normocephalic. mucous membranes moist. Eyes open, symmetrical, & clear HEART: Normal Heart Sounds LUNGS: Clear to auscultation with no wheezing or crackles. ABDOMEN: soft, non-distended, non-tender, bowel sounds heard, no guarding or rebound tenderness SKIN: No Rash or ecchymoses EXTREMITIES: No edema, tenderness, able to move all 4 extremities, pedal pulses palpated Discharge Plan Plan Patient Disposition: HOME (Self Care) Patient condition on transfer: Stable Care Plan Goals: -Follow up with PCP within 1 week of discharge, if you do not have a primary care physician you can come see us at the [facility] by calling [phone] -You have been prescribed antibiotics for 10 more days, please complete the course as directed -For Diabetes you have been prescribed Lantus 20 units daily, please follow up closely with your primary care to make adjustments -For high blood pressure you have been prescribed medication to take once daily, please keep a journal of your daily blood pressure at home to share with your primary care -Continue rest of medications as previously prescribed -Return to the ED or call EMS if symptoms return and/or worsen - Realice un seguimiento con singletary m?dico de cabecera dentro de la semana posterior al zohaib. Si no tiene un m?dico de cabecera, puede visitarnos en la [facility] llamando al [phone]. - Le jang recetado antibi?ticos roger 10 d?as m?s; complete el tratamiento seg?n las indicaciones. - Para la diabetes, le jang recetado Lantus 20 unidades diarias; realice un seguimiento cercano con singletary m?dico de cabecera para hacer ajustes. - Para la presi?n arterial zohaib, le jang recetado medicamentos para leyla kaden vez al d?a; lleve un registro diario de singletary presi?n arterial diaria en casa para compartirlo con singletary m?dico de cabecera. - Contin?e con el divina de los medicamentos seg?n lo prescrito previamente. - Regrese a urgencias o llame a EMS si los s?ntomas regresan o empeoran. Adriana con Dr. Sho Bennett carey 2024 la kaden de la tarde (1pm). [facility]. August 10, 2024 1pm. Prescriptions/Referrals Prescriptions/Med Rec: New insulin glargine 100 unit/mL (3 mL) insulin pen 20 unit subcut QPM 30 Days Qty: 6 0RF (DME) pen needle, diabetic 29 gauge x 1/2 needle See Rx Instructions .Route Qty: 100 0RF Rx Instructions: As directed cefuroxime axetil 500 mg tablet 500 mg PO BID 10 Days Qty: 20 0RF losartan 50 mg tablet 50 mg PO QDAY Qty: 30 0RF (DME) FreeStyle Stone 3 Plus Sensor Device See Rx Instructions .Route Qty: 2 0RF Rx Instructions: As directed Referrals: [facility] [Outside] No Primary/Family,Physician [Primary Care Provider] - Patient/Caregiver Discharge Instructions Education Materials: Blood Sugar Monitoring and ..., Diabetes Exercise Plan, Diabetic Ketoacidosis, Diabetes- Measuring Glucose at Home, Diabetes and High Blood Pressure Print Language: Dutch Stand Alone Forms: Ruth Award Info., Patient Portal Info Letter Discharge Order Discharge Orders: Discharge (Routine); Ordered 08/02/24 Ordered By: Nathaniel Maravilla Quality Discharge Quality Measures VTE prophylaxis
--- NOTE | 2024-08-02 11:12 | PC.CC ---
Request from Dr. Mitchell for insulin injection training. New DM A1c 11.3 w/ Hx GDM and glyburide. Noted RD provided sample of Freestyle Stone 3 Plus Sensor and Rx has been ordered. PA approved through 08/02/25. Updated pharmacy to [facility] per note. Met with Dr. Sandoval who prefers patient to follow-up at [facility]. Met w/ patient at bedside with sister in laws present who assisted with translation. Patient denied previous use of insulin or training. She has not yet set up her CGM, but knows how to perform fingerstick SMBG and has a sample kit at bedside. Instructed patient on insulin pen preparation, use and insulin injection. Verified understanding with teach back. Patient able to appropriately select dose and administer injection into demonstration cube. Discussed insulin pen storage, expected days of supply per pen and use of sharps container. Encouraged patient to set up and use CGM and provide data to MD at follow-up. Patient states she needs an appointment with [facility]. Requested appt from Stephanie, . Verified [facility] is preferred pharmacy. Requested MD send all Rx to [facility].
--- NOTE | 2024-08-02 11:46 | PC.SS ---
SS has made pt an appointment to follow up at [facility] on August 10, [address] Berkowitz. SS provided pt with [facility] with appointment information.
== END 2024-08-02 12:30 | disposition home or self-care (01) | DRG 720 ==
LOC: SERX 04:16 → SERHOLD 06:13 → S2SX 06:26 → S2NX 07-30 20:57
PROVIDERS: Admitting Provider Student in an Organized Health Care Education/Training Program; Emergency Provider Emergency Medicine; Visit Provider Internal Medicine
DX: A41.51 Sepsis due to Escherichia coli [E. coli] (principal); E11.10 Type 2 diabetes mellitus with ketoacidosis without coma; I10 Essential (primary) hypertension; N17.9 Acute kidney failure, unspecified; G93.41 Metabolic encephalopathy; N39.0 Urinary tract infection, site not specified; R65.20 Severe sepsis without septic shock
CPT/HCPCS: 36415; 36600; 70450; 71045; 74176; 76770; 76830; 80053; 80061; 80069; 80307; 80320; 81001; 82010; 82803; 83036; 83605; 83690; 83735; 84100; 84145; 84443; 84484; 84703; 85025; 87040; 87077; 87081; 87086; 87186; 93005; 96361; 96365; 96366; 96375; 99291; A4314; J0131; J0456; J0696; J1171; J1644; J1650; J1815; J2405; J2470; J2765; J3475; J3480; J3490; J7030; J7042; J7050; J7060; J7120; J7999; A9270; G0480; J1836; J1920

== ENCOUNTER 2024-08-10 14:09 | Outpatient (AMB) | payer MEDICAID, SELFPAY ==
[2024-08-10 14:43] VITALS: BP 151/92; PULSE 111; RESP 20; TEMP 36.6; O2SAT 99; BMI 19.2
--- NOTE | 2024-08-10 14:43 | ACNOTE_ITS ---
Vital Signs 08/10/24 14:43 Height 1.69 m Height Method Stated Weight 54.941 kg Weight Measurement Method Standing Scale BMI 19.2 BP 151/92 H Blood Pressure Source Automatic Cuff Blood Pressure Location Right Upper Arm Position Sitting Respiration 20 Pulse 111 H Pulse Source Monitor Temp 97.9 F Temp Source Temporal Artery Scan Pulse Oximetry (%) 99 Oxygen Delivery Method Room Air Allergies/Meds Allergies & Medications Allergies No Known Allergies Allergy (Verified 07/29/24 01:45) AR Intake Visit Data Collection New Patient or Established: Established Patient (seen at [facility] within 3 years) Reason for Visit:: HOSPITAL FOLLOW UP Pain Present Currently: No 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: Yes PCP or OBGYN visit in last 3 months: No Hx Now: No Do You Feel Safe at Home: Yes Authorities Contacted: N/A Smoking Status Smoking Status: Never smoker Immunization / Flu Flu Vaccine in the Last 12 Months: Yes Flu Vaccine Exclusion Criteria: Already Received Past Medical History Past Medical History NEUROLOGIC: Negative Neurological Disorders CARDIAC: Negative Cardiac Disorders or Congestive Heart Failure RESPIRATORY: Negative Chronic Obstructive Pulmonary Disease (COPD) GASTROINTESTINAL: Negative Gastrointestinal Disorders, Hepatitis or Colorectal Cancer GENITOURINARY: Negative Genitourinary Disorders, Renal Disease or Prostate Cancer REPRODUCTIVE: Negative Breast Cancer or Testicular Cancer MUSCULOSKELETAL: Negative Bone Cancer ENDOCRINE: Negative Endocrine Disorders, Diabetes Mellitus Type 1 or Diabetes Mellitus Type 2 HEMATOLOGIC: Negative Blood Disorders OTHER HISTORY: Negative Hospitalization, Down Syndrome, Developmental Delay, Shingles, Falls, Blood Transfusions, Blood Transfusion Reaction, Anesthesia Reactions, Organ Transplant, Chemotherapy, Radiation Therapy, Hyperbaric Therapy, MRSA, VRSA, Vancomycin-Resistant Enterococci, Human Immunodeficiency Virus (HIV), Chicken Pox, Measles, Mumps, Rubella ([place] Measles), Pertussis, Clostridium Difficile, Breast Cancer, Cervical Cancer, Colorectal Cancer, Lung Cancer, Ovarian Cancer, Prostate Cancer or Testicular Cancer Family History FAMILY HISTORY: Negative Family Psychiatric Problems, Family Respiratory Disorders, Family Cardiac Disorders, Family Gastrointestinal Problems, Family Cancer, Family Surgery or Family Anesthesia Reaction Surgical History SURGICAL: Negative Section or Organ Transplant Social History SMOKING STATUS: Smoking status: Never smoker SECOND HAND EXPOSURE: second hand exposure: No ALCOHOL: Alcohol Intake: Never HOUSING: Housing: House LIVES WITH: Lives With: Spouse Patient Portal Questionaires Social History Living Situation History Housing: House Tobacco History Smoking Status: Never smoker Second Hand Smoke Exposure: No Alcohol History Alcohol Intake: Never Domestic Abuse History Do You Feel Safe at Home: Yes Review of Systems Report any current symptoms Only answer those that you have currently: Past Medical History Past Medical History Have you ever been diagnosed with any of the following: Cardiology Problems Congestive Heart Failure: No Respiratory Problems Chronic Obstructive Pulmonary Disease (COPD): No Stomache/Intestinal Problems Hepatitis: No Colorectal Cancer: No Genital/Urinary Problems Renal Disease: No Reproductive Problems Breast Cancer: No Musculoskeletal Problems Bone Cancer: No Endocrine Problems Diabetes Mellitus Type 1: No Diabetes Mellitus Type 2: No Other Problems Hospitalization: No Down Syndrome: No Developmental Delay: No Shingles: No Falls: No Blood Transfusions: No Blood Transfusion Reaction: No Anesthesia Reactions: No Organ Transplant: No Chemotherapy: No Radiation Therapy: No Hyperbaric Therapy: No MRSA: No VRSA: No Vancomycin-Resistant Enterococci: No Human Immunodeficiency Virus (HIV): No Chicken Pox: No Measles: No Mumps: No Rubella ([place] Measles): No Pertussis: No Clostridium Difficile: No Cervical Cancer: No Lung Cancer: No Ovarian Cancer: No History of Present Illness HPI Narrative 08/10/2024: Patient came for follow-up since discharge from the hospital. She was stating that she has been feeling fine and reported no fever, chest pain, headache or dizziness. She stated that she still is taking her antibiotics and completing course in 4 days for E. coli bacteremia found during hospital course. Patient has a CGM which showed 52% at goal of blood sugar 70-180 mg and 70% above 250 mg/dL. She has been using insulin 20 units at night and was given Gvoke pen to avoid hypoglycemia. Her blood pressure was slightly elevated therefore in addition to losartan 50 mg Coreg 3.125 mg twice daily was initiated as patient was tachycardic as well. Recommended to monitor blood pressure at least once a day. Review of Systems Review of Systems Systems Reviewed: All systems reviewed, normal except as documented Objective/Exam Narrative Physical exam: GENERAL APPEARANCE: AxOx4, generally well-appearing female in no acute distress. HEENT: NC, AT. MMM. EOMI, clear conjunctiva, oropharynx clear. NECK: Supple without lymphadenopathy. No stiffness or restricted ROM. HEART: Sinus tachycardia with regular rhythm, normal S1/S2, no m/r/g LUNGS: CTAB, moving air well. No crackles or wheezes are heard. ABDOMEN: Soft, nontender, nondistended with good bowel sounds heard. BACK: No CVAT, no obvious deformity. EXTREMITIES: Without cyanosis, clubbing or edema. NEUROLOGICAL: Grossly nonfocal. Alert and oriented, moving all 4 extremities. CN not formally tested but appear grossly intact. Observed to ambulate with normal gait. Skin: Warm and dry without any rash. Psych: Appropriate mood and affect Assessment & Plan Diagnosis / Problem List (1) Primary hypertension: Status: Acute Assessment & Plan: -Her blood pressure was slightly elevated during clinic visit 150/92 with heart rate 111 Plan: -Recommended to continue losartan 50 mg once daily -Added Coreg 3.125 mg twice daily due to tachycardia and slightly elevated blood pressure - Recommended to monitor blood pressure at least once at home (2) Diabetes: Status: Acute Qualifiers: Diabetes mellitus type: type 2 Diabetes mellitus complication status: without complication Assessment & Plan: - Patient was diagnosed with diabetes during hospital stay. Denied any burning or tingling sensation in the feet. -CGM which showed 52% at goal of blood sugar 70-180 mg and 70% above 250 mg/dL. Plan: - Continue insulin 20 units at night - Gvoke pen to avoid hypoglycemia. - Encourage hydration Plan of care discussed with attending physician, Dr.Watanakunakorn Dr. Tamie MD, PGY 3 Office Procedures [facility] Level of Care Nursing/Assessment Patient Status: Established Patient Nursing Assessment/Reassessment: BP Monitoring, Medication Reconciliation, Update PMH in EMR and Vital Signs Coordination of Care: Complex Care and Chronic Disease 1-5, Consent,records obtained, informed consent, 4+ Authorizations needed and Results/Orders obtained Established Patient Charge Established Patient Point Assignment: 105 Established Patient Point Charge: EP Level 3 (80-115)
== END 2024-08-10 15:56 | disposition home or self-care (01) ==
LOC: HODAHC 14:09
PROVIDERS: Supervising Provider Internal Medicine; Visit Provider Student in an Organized Health Care Education/Training Program
DX: E11.9 Type 2 diabetes mellitus without complications (principal); I10 Essential (primary) hypertension; R78.81 Bacteremia; B96.20 Unspecified Escherichia coli [E. coli] as the cause of diseases classified elsewhere
CPT/HCPCS: 99213; G0463

== ENCOUNTER 2024-09-09 14:03 | Outpatient (AMB) | payer MEDICAID, SELFPAY ==
[2024-09-09 14:24] VITALS: BP 167/93; PULSE 91; RESP 19; TEMP 36.7; O2SAT 97; BMI 22.6
--- NOTE | 2024-09-09 14:24 | PD.RESCLINIC ---
Vital Signs 09/09/24 14:24 Height 1.57 m Height Method Stated Weight 56.302 kg Weight Measurement Method Standing Scale BMI 22.6 BP 167/93 H Blood Pressure Source Automatic Cuff Blood Pressure Location Right Upper Arm Position Sitting Respiration 19 Pulse 91 Pulse Source Monitor Temp 98.1 F Temp Source Temporal Artery Scan Pulse Oximetry (%) 97 Oxygen Delivery Method Room Air Allergies/Meds Allergies & Medications Allergies No Known Allergies Allergy (Verified 07/29/24 01:45) MA Intake Visit Data Collection New Patient or Established: Established Patient (seen at [facility] within 3 years) Seen by Clinical Staff ONLY (RN/MA): No Reason for Visit:: 1 MONTH FOLLOW UP Pain Present Currently: No Product/Device Technologist Required: Yes PCP or OBGYN visit in last 3 months: Yes Date of Last PCP or OBGYN visit: 08/10/24 Hx Now: No Do You Feel Safe at Home: Yes Authorities Contacted: N/A Smoking Status Smoking Status: Never smoker Immunization / Flu Flu Vaccine in the Last 12 Months: Yes Flu Vaccine Exclusion Criteria: Already Received Past Medical History Past Medical History NEUROLOGIC: Negative Neurological Disorders CARDIAC: Negative Cardiac Disorders or Congestive Heart Failure RESPIRATORY: Negative Chronic Obstructive Pulmonary Disease (COPD) GASTROINTESTINAL: Negative Gastrointestinal Disorders, Hepatitis or Colorectal Cancer GENITOURINARY: Negative Genitourinary Disorders, Renal Disease or Prostate Cancer REPRODUCTIVE: Negative Breast Cancer or Testicular Cancer MUSCULOSKELETAL: Negative Bone Cancer ENDOCRINE: Negative Endocrine Disorders, Diabetes Mellitus Type 1 or Diabetes Mellitus Type 2 HEMATOLOGIC: Negative Blood Disorders OTHER HISTORY: Negative Hospitalization, Down Syndrome, Developmental Delay, Shingles, Falls, Blood Transfusions, Blood Transfusion Reaction, Anesthesia Reactions, Organ Transplant, Chemotherapy, Radiation Therapy, Hyperbaric Therapy, MRSA, VRSA, Vancomycin-Resistant Enterococci, Human Immunodeficiency Virus (HIV), Chicken Pox, Measles, Mumps, Rubella ([place]aur[place] Measles), Pertussis, Clostridium Difficile, Breast Cancer, Cervical Cancer, Colorectal Cancer, Lung Cancer, Ovarian Cancer, Prostate Cancer or Testicular Cancer Family History FAMILY HISTORY: Negative Family Psychiatric Problems, Family Respiratory Disorders, Family Cardiac Disorders, Family Gastrointestinal Problems, Family Cancer, Family Surgery or Family Anesthesia Reaction Surgical History SURGICAL: Negative Section or Organ Transplant Social History SMOKING STATUS: Smoking status: Never smoker SECOND HAND EXPOSURE: second hand exposure: No ALCOHOL: Alcohol Intake: Never HOUSING: Housing: House LIVES WITH: Lives With: Spouse Patient Portal Questionaires Social History Living Situation History Housing: House Tobacco History Smoking Status: Never smoker Second Hand Smoke Exposure: No Alcohol History Alcohol Intake: Never Domestic Abuse History Do You Feel Safe at Home: Yes Review of Systems Report any current symptoms Only answer those that you have currently: Past Medical History Past Medical History Have you ever been diagnosed with any of the following: Cardiology Problems Congestive Heart Failure: No Respiratory Problems Chronic Obstructive Pulmonary Disease (COPD): No Stomache/Intestinal Problems Hepatitis: No Colorectal Cancer: No Genital/Urinary Problems Renal Disease: No Reproductive Problems Breast Cancer: No Musculoskeletal Problems Bone Cancer: No Endocrine Problems Diabetes Mellitus Type 1: No Diabetes Mellitus Type 2: No Other Problems Hospitalization: No Down Syndrome: No Developmental Delay: No Shingles: No Falls: No Blood Transfusions: No Blood Transfusion Reaction: No Anesthesia Reactions: No Organ Transplant: No Chemotherapy: No Radiation Therapy: No Hyperbaric Therapy: No MRSA: No VRSA: No Vancomycin-Resistant Enterococci: No Human Immunodeficiency Virus (HIV): No Chicken Pox: No Measles: No Mumps: No Rubella ([place]auritanian Measles): No Pertussis: No Clostridium Difficile: No Cervical Cancer: No Lung Cancer: No Ovarian Cancer: No History of Present Illness HPI Narrative 08/10/2024: Patient came for follow-up since discharge from the hospital. She was stating that she has been feeling fine and reported no fever, chest pain, headache or dizziness. She stated that she still is taking her antibiotics and completing course in 4 days for E. coli bacteremia found during hospital course. Patient has a CGM which showed 52% at goal of blood sugar 70-180 mg and 70% above 250 mg/dL. She has been using insulin 20 units at night and was given Gvoke pen to avoid hypoglycemia. Her blood pressure was slightly elevated therefore in addition to losartan 50 mg Coreg 3.125 mg twice daily was initiated as patient was tachycardic as well. Recommended to monitor blood pressure at least once a day. 09/09/2024: Patient was seen and examined in the clinic today. She reported that she had been having abdominal pain for couple of months and it usually occurs before her menstrual cycle. She pointed the pain to be on the left side mild in intensity and colicky in nature. Previous chart review revealed she had a pelvic ultrasound which showed follicular cyst in the left ovary. Her last menstrual period was July 12, 2024. Lasting 3 to 4 days with mild bleeding. She reported that she is late for 5 days for her menstrual period. She denied taking any control pills. She never had a Pap smear and is sexually active. She also reported that her heart rate has been getting better. She was not taking her losartan and was only taking Coreg 3.125 twice daily. She also reported to have low blood sugars which was confirmed through freestyle pascual 3 recordings around 80s to 100 Mg/dl. Patient was advised to reduce her dose of insulin at night from Lantus 15 units to 12 units and decrease even more to 10 units if the next 3 days her blood sugars are still on the lower side. Refill prescription was given for sensor and losartan. She was given a referral to [facility] after [address] Pabon along with hormone test including LH, FSH, prolactin, TSH, free T4, free testosterone. Another transvaginal ultrasound was ordered to evaluate cyst size. Will follow-up with lab results. Review of Systems Review of Systems Systems Reviewed: All systems reviewed, normal except as documented Objective/Exam Narrative Physical exam: GENERAL APPEARANCE: AxOx4, generally well-appearing female no acute distress. HEENT: NC, AT. MMM. EOMI, clear conjunctiva, oropharynx clear. NECK: Supple without lymphadenopathy. No stiffness or restricted ROM. HEART: Sinus tachycardia with regular rhythm, normal S1/S2, no m/r/g LUNGS: CTAB, moving air well. No crackles or wheezes are heard. ABDOMEN: Soft, lower pelvic tenderness more on left side, nondistended with good bowel sounds heard. BACK: No CVAT, no obvious deformity. EXTREMITIES: Without cyanosis, clubbing or edema. NEUROLOGICAL: Grossly nonfocal. Alert and oriented, moving all 4 extremities. CN not formally tested but appear grossly intact. Observed to ambulate with normal gait. Skin: Warm and dry without any rash. Psych: Appropriate mood and affect Assessment & Plan Diagnosis / Problem List (1) Follicular cyst of left ovary: Status: Acute Assessment & Plan: - Patient reported to have chronic abdominal pain more on the left side colicky in nature from last couple of months. Transvaginal ultrasound was performed per chart review which showed left follicular cyst 8 mm. - Patient reported her menstrual cycle has been irregular and lasting for 5 days with mild bleeding. Last menstrual cycle was July 12, 2024. She is late for her menstrual cycle this month. She denied taking any control pills. Denied having Pap smear in the past. - Abdominal examination revealed mild pelvic tenderness more on the left side. Plan: - Recommended to take Tylenol as needed -Referred to [facility], Dr. Pabon along with repeat transvaginal ultrasound to evaluate for cyst size, TSH, LH, FSH, prolactin and free testosterone along with beta-hCG - Will follow-up with lab results and will be seen by [facility] (2) Menstrual irregularity: Status: Acute Assessment & Plan: -Patient reported her menstrual cycle has been irregular and lasting for 5 days with mild bleeding. Last menstrual cycle was July 12, 2024. She is late for her menstrual cycle this month. She denied taking any control pills. Denied having Pap smear in the past. Plan: -Referred to [facility], Dr. Pabon along with repeat transvaginal ultrasound to evaluate for cyst size, TSH, LH, FSH, prolactin and free testosterone along with beta-hCG - Will follow-up with lab results and will be seen by [facility] - Patient will benefit with OCPs for menstrual irregularity (3) Hyperthyroidism: Assessment & Plan: - Patient was noted to have persistent tachycardia since hospitalization. Heart rate was around 110s today. She was started on Coreg on previous visit. - Per chart review patient was found to have TSH less than 0.05 Plan: - Thyroid functions repeat including TSH and free T4 - Patient might have hyperthyroidism will benefit with methimazole or PTU will likely follow-up with lab results (4) Primary hypertension: Status: Acute Assessment & Plan: - Patient has a history of high blood pressure. Currently on losartan and Coreg. Patient reported she was not taking her losartan due to some confusion. She reported her blood pressure has been stable at home. Plan: - Recommended to continue taking her blood pressure every day and continue taking losartan 50 mg once daily and Coreg 3.125 mg twice daily -Prescription refill was given for losartan (5) Diabetes: Status: Acute Qualifiers: Diabetes mellitus type: type 2 Diabetes mellitus complication status: without complication Diabetes mellitus psychological tests sales agent insulin use: with psychological tests sales agent use Qualified Code(s): E11.9 - Type 2 diabetes mellitus without complications; Z79.4 - alf (current) use of insulin Assessment & Plan: - Patient has been taking Lantus 20 units at night. Patient has freestyle pascual 3 sensor device for blood sugar monitoring. -Per sensor device patient's blood sugar has been around 72-100 mg/dl Plan: - Recommended to decrease units of Lantus to 15 units and decrease further to 12 or even 10 units in the next 3 days if blood sugars remain on the lower side - Prescription refill given for sensor device Patient was seen and discussed with attending physician, Dr.Watanakunakorn Dr. Tamie MD, PGY 3 Orders: Orders US transvaginal Today N83.02 - Follicular cyst of left ovary Referrals [facility] E05.90 - Thyrotoxicosis, unspecified without thyrotoxic crisis or storm, N83.02 - Follicular cyst of left ovary, N92.6 - Irregular menstruation, unspecified Office Procedures [facility] Level of Care Nursing/Assessment Patient Status: Established Patient Nursing Assessment/Reassessment: BP Monitoring, Medication Reconciliation, Update PMH in EMR and Vital Signs Coordination of Care: Complex Care and Chronic Disease 1-5, Lab and Imaging orders and Results/Orders obtained Established Patient Charge Established Patient Point Assignment: 90 Established Patient Point Charge: Level 3 (80-115)
== END 2024-09-09 14:52 | disposition home or self-care (01) ==
LOC: HODAHC 14:03
PROVIDERS: Supervising Provider Student in an Organized Health Care Education/Training Program; Visit Provider Student in an Organized Health Care Education/Training Program
DX: N83.02 Follicular cyst of left ovary (principal); N92.6 Irregular menstruation, unspecified; E05.90 Thyrotoxicosis, unspecified without thyrotoxic crisis or storm; I10 Essential (primary) hypertension; E11.9 Type 2 diabetes mellitus without complications; Z79.4 Long term (current) use of insulin
CPT/HCPCS: 99213; G0463

== ENCOUNTER 2024-09-16 10:01 | Outpatient (AMB) | payer MEDICAID, SELFPAY ==
[2024-09-16 10:15] VITALS: BP 165/90; PULSE 93; RESP 19; TEMP 36.6; O2SAT 99; BMI 22.8
--- NOTE | 2024-09-16 10:15 | ACNOTE_ITS ---
Vital Signs 09/16/24 10:15 Height 1.57 m Height Method Stated Weight 56.472 kg Weight Measurement Method Standing Scale BMI 22.8 BP 165/90 H Blood Pressure Source Automatic Cuff Blood Pressure Location Right Upper Arm Position Sitting Respiration 19 Pulse 93 Pulse Source Monitor Temp 97.9 F Temp Source Temporal Artery Scan Pulse Oximetry (%) 99 Oxygen Delivery Method Room Air Allergies/Meds Allergies & Medications Allergies No Known Allergies Allergy (Verified 07/29/24 01:45) MA Intake Visit Data Collection New Patient or Established: Established Patient (seen at [facility] within 3 years) Seen by Clinical Staff ONLY (RN/MA): No Reason for Visit:: FOLLOW UP Pain Present Currently: No 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 Primary Care Provider: DR RAMIREZ PCP or OBGYN visit in last 3 months: Yes Date of Last PCP or OBGYN visit: 09/09/24 Hx Now: No Do You Feel Safe at Home: Yes Authorities Contacted: N/A Smoking Status Smoking Status: Never smoker Immunization / Flu Flu Vaccine in the Last 12 Months: Yes Flu Vaccine Exclusion Criteria: Already Received Past Medical History Past Medical History NEUROLOGIC: Negative Neurological Disorders CARDIAC: Negative Cardiac Disorders or Congestive Heart Failure RESPIRATORY: Negative Chronic Obstructive Pulmonary Disease (COPD) GASTROINTESTINAL: Negative Gastrointestinal Disorders, Hepatitis or Colorectal Cancer GENITOURINARY: Negative Genitourinary Disorders, Renal Disease or Prostate Cancer REPRODUCTIVE: Negative Breast Cancer or Testicular Cancer MUSCULOSKELETAL: Negative Bone Cancer ENDOCRINE: Negative Endocrine Disorders, Diabetes Mellitus Type 1 or Diabetes Mellitus Type 2 HEMATOLOGIC: Negative Blood Disorders OTHER HISTORY: Negative Hospitalization, Down Syndrome, Developmental Delay, Shingles, Falls, Blood Transfusions, Blood Transfusion Reaction, Anesthesia [place] ctions, Organ Transplant, Chemotherapy, Radiation Therapy, Hyperbaric Therapy, MRSA, VRSA, Vancomycin-Resistant Enterococci, Human Immunodeficiency Virus (HIV), Chicken Pox, Measles, Mumps, Rubella (Ind[place]ian Measles), Pertussis, Clostridium Difficile, Breast Cancer, Cervical Cancer, Colorectal Cancer, Lung Cancer, Ovarian Cancer, Prostate Cancer or Testicular Cancer Family History FAMILY HISTORY: Negative Family Psychiatric Problems, Family Respiratory Disorders, Family Cardiac Disorders, Family Gastrointestinal Problems, Family Cancer, Family Surgery or Family Anesthesia Reaction Surgical History SURGICAL: Negative Section or Organ Transplant Social History SMOKING STATUS: Smoking status: Never smoker SECOND HAND EXPOSURE: second hand exposure: No ALCOHOL: Alcohol Intake: Never HOUSING: Housing: House LIVES WITH: Lives With: Spouse Patient Portal Questionaires Social History Living Situation History Housing: House Tobacco History Smoking Status: Never smoker Second Hand Smoke Exposure: No Alcohol History Alcohol Intake: Never Domestic Abuse History Do You Feel Safe at Home: Yes Review of Systems Report any current symptoms Only answer those that you have currently: Past Medical History Past Medical History Have you ever been diagnosed with any of the following: Cardiology Problems Congestive Heart Failure: No Respiratory Problems Chronic Obstructive Pulmonary Disease (COPD): No Stomache/Intestinal Problems Hepatitis: No Colorectal Cancer: No Genital/Urinary Problems Renal Disease: No Reproductive Problems Breast Cancer: No Musculoskeletal Problems Bone Cancer: No Endocrine Problems Diabetes Mellitus Type 1: No Diabetes Mellitus Type 2: No Other Problems Hospitalization: No Down Syndrome: No Developmental Delay: No Shingles: No Falls: No Blood Transfusions: No Blood Transfusion Reaction: No Anesthesia Reactions: No Organ Transplant: No Chemotherapy: No Radiation Therapy: No Hyperbaric Therapy: No MRSA: No VRSA: No Vancomycin-Resistant Enterococci: No Human Immunodeficiency Virus (HIV): No Chicken Pox: No Measles: No Mumps: No Rubella (Indonesian Measles): No Pertussis: No Clostridium Difficile: No Cervical Cancer: No Lung Cancer: No Ovarian Cancer: No History of Present Illness HPI Narrative 08/10/2024: Patient came for follow-up since discharge from the hospital. She was stating that she has been feeling fine and reported no fever, chest pain, headache or dizziness. She stated that she still is taking her antibiotics and completing course in 4 days for E. coli bacteremia found during hospital course. Patient has a CGM which showed 52% at goal of blood sugar 70-180 mg and 70% above 250 mg/dL. She has been using insulin 20 units at night and was given Gvoke pen to avoid hypoglycemia. Her blood pressure was slightly elevated therefore in addition to losartan 50 mg Coreg 3.125 mg twice daily was initiated as patient was tachycardic as well. Recommended to monitor blood pressure at least once a day. 09/09/2024: Patient was seen and examined in the clinic today. She reported that she had been having abdominal pain for couple of months and it usually occurs before her menstrual cycle. She pointed the pain to be on the left side mild in intensity and colicky in nature. Previous chart review revealed she had a pelvic ultrasound which showed follicular cyst in the left ovary. Her last menstrual period was July 12, 2024. Lasting 3 to 4 days with mild bleeding. She reported that she is late for 5 days for her menstrual period. She denied taking any control pills. She never had a Pap smear and is sexually active. She also reported that her heart rate has been getting better. She was not taking her losartan and was only taking Coreg 3.125 twice daily. She also reported to have low blood sugars which was confirmed through freestyle pascual 3 recordings around 80s to 100 Mg/dl. Patient was advised to reduce her dose of insulin at night from Lantus 15 units to 12 units and decrease even more to 10 units if the next 3 days her blood sugars are still on the lower side. Refill prescription was given for sensor and losartan. She was given a referral to [facility] after [address] Pabon along with hormone test including LH, FSH, prolactin, TSH, free T4, free testosterone. Another transvaginal ultrasound was ordered to evaluate cyst size. Will follow-up with lab results. 09/16/24: Patient was seen and examined in the clinic today. She reported her blood sugar has been around 100-150. She is currently on Lantus 15 units daily. She continues to have lower abdominal pain and currently awaiting authorization for ultrasound pelvis to evaluate ovarian cyst and director mortgage referral. She reported that she does not have any headaches, chest pain or any other problem. Labs revealed LH 46.7, FSH 60.8, T41.16, TSH 0.83, prolactin 10.4. Estradiol less than 5. Will likely follow-up with gynecology referral for that. Her blood pressure was significantly elevated around 165/89. Repeat blood pressure was 158/80. Pulse 93. Patient was advised to take increased dose of losartan 100 mg once daily, added amlodipine 5 mg once daily and continue Coreg 3.125 mg twice daily. ASCVD score 62.5% with 0.5% 10-year cardiovascular risk.Therefore patient was started on atorvastatin 40 mg at bedtime. She will be followed on November 04. Repeating lipid panel on October 28, 2024. Review of Systems Review of Systems Systems Reviewed: All systems reviewed, normal except as documented Objective/Exam Narrative Physical exam: GENERAL APPEARANCE: AxOx4, generally well-appearing female no acute distress. HEENT: NC, AT. MMM. EOMI, clear conjunctiva, oropharynx clear. NECK: Supple without lymphadenopathy. No stiffness or restricted ROM. HEART: Sinus tachycardia with regular rhythm, normal S1/S2, no m/r/g LUNGS: CTAB, moving air well. No crackles or wheezes are heard. ABDOMEN: Soft, lower pelvic tenderness more on left side, nondistended with good bowel sounds heard. BACK: No CVAT, no obvious deformity. EXTREMITIES: Without cyanosis, clubbing or edema. NEUROLOGICAL: Grossly nonfocal. Alert and oriented, moving all 4 extremities. CN not formally tested but appear grossly intact. Observed to ambulate with normal gait. Skin: Warm and dry without any rash. Psych: Appropriate mood and affect Assessment & Plan Diagnosis / Problem List (1) Menstrual irregularity: Status: Acute Assessment & Plan: - Patient continues to have mild abdominal discomfort and was informed to take Tylenol as needed. -Labs revealed LH 46.7, FSH 60.8, T41.16, TSH 0.83, prolactin 10.4. Estradiol less than 5 Plan: - Tylenol as needed for pain - Follow-up appointment with director mortgage on October 04, 2024 -Pending on ultrasound pelvis authorization pending (2) Primary hypertension: Status: Acute Assessment & Plan: - Patient has persistently elevated blood pressure around 160s / 90s Plan: - Added amlodipine 5 mg once daily, increase losartan 100 mg once daily -Recommend to continue Coreg 3.125 mg twice daily -Blood pressure monitor given to monitor blood pressure at home (3) Diabetes: Status: Acute Qualifiers: Diabetes mellitus type: type 2 Diabetes mellitus mcfp insulin use: with rn long term care use Diabetes mellitus complication status: without complication Qualified Code(s): E11.9 - Type 2 diabetes mellitus without complications; 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 - Blood sugar around 100-150 mg/dL Plan: - Recommended to continue insulin Lantus 15 units daily - Continue monitoring blood sugar checks with freestyle pascual (4) Hyperlipemia: Status: Acute Qualifiers: Hyperlipidemia type: unspecified Qualified Code(s): E78.5 - Hyperlipidemia, unspecified Assessment & Plan: - ASCVD score 62.5% with 0.5% 10-year cardiovascular risk. Plan: -started on atorvastatin 40 mg at bedtime. - Repeated lipid panel October 28, 2024 - Follow-up on November 04, 2024 Patient was seen and discussed with attending physician, Dr.Wat[place]unakorn Dr. Tamie MD, PGY 3 Orders: Orders Lipid Panel 10/28/24 Office Procedures [facility] Level of Care Nursing/Assessment Patient Status: Established Patient Nursing Assessment/Reassessment: Medication Reconciliation, Update PMH in EMR and Vital Signs Coordination of Care: Complex Care and Chronic Disease 1-5, Consent,records obtained, informed consent, 1 Ins Authorization, Lab and Imaging orders and Results/Orders obtained Established Patient Charge Established Patient Point Assignment: 95 Established Patient Point Charge: Level 3 (80-115)
== END 2024-09-16 11:00 | disposition home or self-care (01) ==
LOC: HODAHC 10:01
PROVIDERS: PCP Student in an Organized Health Care Education/Training Program; Referring Provider Student in an Organized Health Care Education/Training Program; Supervising Provider Student in an Organized Health Care Education/Training Program; Visit Provider Student in an Organized Health Care Education/Training Program
DX: N92.6 Irregular menstruation, unspecified (principal); N83.209 Unspecified ovarian cyst, unspecified side; I10 Essential (primary) hypertension; E11.9 Type 2 diabetes mellitus without complications; Z79.4 Long term (current) use of insulin; E78.5 Hyperlipidemia, unspecified
CPT/HCPCS: 99213; G0463

== ENCOUNTER 2024-10-05 09:01 | Outpatient (AMB) | payer MEDICAID, SELFPAY ==
--- NOTE | 2024-10-05 09:13 | AMB.GYNCLNOT ---
Vital Signs 10/05/24 09:17 Height 1.57 m Height Method Stated Weight 57.266 kg Weight Measurement Method Standing Scale BMI 23.2 BP 163/91 H Blood Pressure Source Automatic Cuff Blood Pressure Location Left Upper Arm Position Sitting Respiration 18 Pulse 77 Pulse Source Monitor Temp 97.2 F Temp Source Oral Pulse Oximetry (%) 98 Oxygen Delivery Method Room Air Allergies/Home Meds Allergies & Medications Allergies No Known Allergies Allergy (Verified 10/05/24 09:18) Medication Reconciliation pen needle, diabetic 29 gauge x 1/2 #100 ea 08/02/24 [Rx Confirmed 10/05/24] carvedilol 3.125 mg tablet (Coreg) 3.125 mg PO BID #90 tabs 08/10/24 [Rx Confirmed 10/05/24] glucagon 1 mg/0.2 mL subcutaneous auto-injector (Gvoke HypoPen 1-Pack) 1 mg (0.2 mL) subcut QDAY PRN hypoglycemia #0.2 mL 08/10/24 [Rx Confirmed 10/05/24] amlodipine 5 mg tablet 5 mg PO QDAY #90 tabs 09/16/24 [Rx Confirmed 10/05/24] atorvastatin 40 mg tablet 40 mg PO QHS #90 tabs 09/16/24 [Rx Confirmed 10/05/24] blood pressure monitor (Blood Pressure Kit) #1 ea 09/16/24 [Rx Confirmed 10/05/24] losartan 100 mg tablet 100 mg PO QDAY #90 tabs 09/16/24 [Rx Confirmed 10/05/24] blood-glucose sensor (FreeStyle Stone 3 Plus Sensor device) #2 ea 10/05/24 [Rx] Intake Visit Data Collection New Patient or Established: Established Patient (seen at [facility] within 3 years) Reason for Visit:: REF [facility] Seen by Clinical Staff ONLY (RN/MA): No L Tacker Required: Yes L Tacker's name/title: CHINO GILL MA Do You Feel Safe at Home: Yes Authorities Contacted: N/A PCP or OBGYN visit in last 3 months: Yes Date of Last PCP or OBGYN visit: 09/16/24 Hx Now: No Are you currently on any form of Control: No Last menstrual period: 07/12/24 Pain Present Currently: No Pain Scale Used: Shine-Mendenhall/Numerical Pain scale:: 0 Smoking Status Smoking Status: Never smoker 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 Menstrual regularity: regular Flow: normal Monthly: Yes How many days does period last: 5 Age at menarche: 12 Menopausal: No Currently sexually active: Yes 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 1. Little interest or pleasure in doing things: not at all 2. Feeling down, depressed, or hopeless: not at all Total score: 0 PHQ-9 3. Trouble falling or staying asleep, or sleeping too much: Not at all 4. Feeling tired or having little energy: Not at all 5. Poor appetite or overeating: Not at all 6. Feeling bad about yourself - or that you are a failure or have let yourself or your family down: Not at all 7. Trouble concentrating on things, such as reading the newspaper or watching television: Not at all 8. Moving or speaking so slowly that other people could have noticed? - Or the opposite - being so fidgety or restless that you have been moving around a lot more than usual: not at all 9. Thoughts that you would be better off or of hurting yourself in some way: Not at all Total score: 0 If you checked off any problems, how difficult have these problems made it for you to do your work, take care of things at home, or get along with other people?: not difficult at all Source: Developed by Drs. Luca Palomino, Ashley Bettencourt, Sachin Norris and colleagues, with an educational juan pablo from [employer]. Depression screen completed yes Social History Living Situation History Housing: House Tobacco History Smoking Status: Never smoker Second Hand Smoke Exposure: No Alcohol History Alcohol Intake: Never Domestic Abuse History Do You Feel Safe at Home: Yes History of Present Illness HPI Narrative Chief Complaint Consultation for ovarian cyst Elise Rollins is a 44-year-old woman presenting for consultation regarding an ovarian cyst. The patient was initially unaware of the cyst until she was in the hospital, where she was informed of its presence. She reports irregular menstrual cycles, indicating she is likely perimenopausal. The patient experienced pain associated with the cyst, which was explained to be due to the release of blood and fluid when a larger cyst potentially ruptured. This pain is expected to gradually subside over a period of about 3 months. The patient has been advised that she can safely take ibuprofen for pain management. Medical History: - Perimenopause Medications: - Ibuprofen for pain Diagnostic Test Results and Labs: - Transvaginal ultrasound (07/30/2024): Uterus 6.7 cm, endometrial stripe 0.8 cm, no uterine mass or intrauterine gestation, right ovary obscured, left ovary 2.2 cm with 11 mm follicular cyst - CT scan (07/30/2024): 20 mm right ovarian cyst, no other gynecologic abnormalities - Blood work (06/17/2024): FSH 60.8, LH 46.7, TSH 0.883, Free T4 1.16, Prolactin 10.4, Estradiol <5, Beta HCG negative Exam General General Appearance: alert, in no apparent distress and healthy appearing Head Head exam: atraumatic Neck Neck exam: Present normal inspection and trachea midline Chest Chest inspection: Present normal inspection and symmetric chest wall rise External exam: Present normal external exam; Absent tenderness Neuro Neurological exam: Present oriented X3 Psych Psychiatric exam: Present normal affect and normal mood Office Procedures OB Clinic LOC & Office Proc's Nursing/Assessment Patient Status: Established Patient OB Clinic Nursing Assessment: Medication Reconciliation, Update PMH in EMR and Vital Signs OB Clinic Coordination of Care: Education Complex Pt/Fam, Consent,records obtained, informed consent, Lab and Imaging orders, Results/Orders obtained and Staff clarify orders Special Needs: Language special needs Established Patient Charge Established Patient Point Assignment: 85 Established Patient Point Charge: EP Level 3 (80-115) Assessment & Plan Diagnosis / Problem List (1) Follicular cyst of left ovary: Status: Acute (2) Functional ovarian cysts: Status: Acute Plan Ovarian Cyst Assessment: Transvaginal ultrasound from 07/30/2024 revealed a left ovarian follicular cyst measuring [address] scan on the same day showed a 20 mm right ovarian cyst. The discrepancy in size and location between the two imaging modalities suggests the possibility of a ruptured cyst, which would explain the patient's recent pain. The current cyst size is considered small and benign, not requiring surgical intervention. Given the patient's age and hormonal status (perimenopause), this presentation is consistent with a functional ovarian cyst. Plan: - Repeat transvaginal ultrasound in 6 months (January 2025) - Order CA-125 blood test - Recommend ibuprofen for pain management as needed - Follow up with phone appointment in 2 weeks for test results - No surgical intervention required at this time due to small cyst size (<5 cm) Perimenopause Assessment: Patient reports irregular menstrual cycles, consistent with perimenopause. Recent lab work from 06/17/2024 confirms perimenopausal status with elevated FSH (60.8) and LH (46.7), and low estradiol (<5). Other relevant labs include TSH 0.883, Free T4 1.16, prolactin 10.4, and negative beta HCG. Plan: - Continue monitoring hormonal status as it may affect management of ovarian cysts - No specific interventions planned at this time
[2024-10-05 09:17] VITALS: BP 163/91; PULSE 77; RESP 18; TEMP 36.2; O2SAT 98; BMI 23.2
== END 2024-10-05 09:43 | disposition home or self-care (01) ==
LOC: HODSOBC 09:01
PROVIDERS: PCP Student in an Organized Health Care Education/Training Program; Referring Provider Student in an Organized Health Care Education/Training Program; Supervising Provider Obstetrics & Gynecology; Visit Provider Obstetrics & Gynecology
DX: N83.02 Follicular cyst of left ovary (principal); N83.201 Unspecified ovarian cyst, right side; Z78.0 Asymptomatic menopausal state
CPT/HCPCS: 99213; G0463

== ENCOUNTER 2025-01-12 13:07 | Outpatient (AMB) | payer MEDICAID, SELFPAY ==
[2025-01-12 13:24] VITALS: BP 173/99; PULSE 90; RESP 19; TEMP 36.6; O2SAT 99; BMI 25.2
--- NOTE | 2025-01-12 13:24 | PD.RESCLINIC ---
Vital Signs 01/12/25 13:24 Height 1.57 m Height Method Stated Weight 62.199 kg Weight Measurement Method Standing Scale BMI 25.2 BP 173/99 H Blood Pressure Source Automatic Cuff Blood Pressure Location Left Upper Arm Position Sitting Respiration 19 Pulse 90 Pulse Source Monitor Temp 97.8 F Temp Source Temporal Artery Scan Pulse Oximetry (%) 99 Oxygen Delivery Method Room Air Allergies/Meds Allergies & Medications Allergies No Known Allergies Allergy (Verified 01/12/25 13:25) Medication Reconciliation pen needle, diabetic 29 gauge x 1/2 #100 ea 08/02/24 [Rx Confirmed 01/12/25] glucagon 1 mg/0.2 mL subcutaneous auto-injector (Gvoke HypoPen 1-Pack) 1 mg (0.2 mL) subcut QDAY PRN hypoglycemia #0.2 mL 08/10/24 [Rx Confirmed 01/12/25] blood pressure monitor (Blood Pressure Kit) #1 ea 09/16/24 [Rx Confirmed 01/12/25] atorvastatin 40 mg tablet 40 mg PO QHS #90 tabs 11/25/24 [Rx Confirmed 01/12/25] blood-glucose sensor (FreeStyle Stone 3 Plus Sensor device) #2 ea 11/25/24 [Rx Confirmed 01/12/25] losartan 100 mg tablet 100 mg PO QDAY #90 tabs 11/25/24 [Rx Confirmed 01/12/25] amlodipine 5 mg tablet 5 mg PO QDAY #90 tabs 01/12/25 [Rx] carvedilol 3.125 mg tablet (Coreg) 3.125 mg PO BID #90 tabs 01/12/25 [Rx] pantoprazole 40 mg tablet,delayed release (Protonix) 40 mg PO QDAY #30 tabs 01/12/25 [Rx] MA Intake Visit Data Collection PCP or OBGYN visit in last 3 months: Yes Smoking Status Smoking Status: Never smoker Immunization / Flu Flu Vaccine in the Last 12 Months: Yes Flu Vaccine Exclusion Criteria: Already Received Past Medical History Past Medical History NEUROLOGIC: Negative Neurological Disorders CARDIAC: Negative Cardiac Disorders or Congestive Heart Failure RESPIRATORY: Negative Chronic Obstructive Pulmonary Disease (COPD) GASTROINTESTINAL: Negative Gastrointestinal Disorders, Hepatitis or Colorectal Cancer GENITOURINARY: Negative Genitourinary Disorders, Renal Disease or Prostate Cancer REPRODUCTIVE: Negative Breast Cancer or Testicular Cancer MUSCULOSKELETAL: Negative Bone Cancer ENDOCRINE: Negative Endocrine Disorders, Diabetes Mellitus Type 1 or Diabetes Mellitus Type 2 HEMATOLOGIC: Negative Blood Disorders OTHER HISTORY: Negative Hospitalization, Down Syndrome, Developmental Delay, Shingles, Falls, Blood Transfusions, Blood Transfusion Reaction, Anesthesia Reactions, Organ Transplant, Chemotherapy, Radiation Therapy, Hyperbaric Therapy, MRSA, VRSA, Vancomycin-Resistant Enterococci, Human Immunodeficiency Virus (HIV), Chicken Pox, Measles, Mumps, Rubella (Maur[place]ian Measles), Pertussis, Clostridium Difficile, Breast Cancer, Cervical Cancer, Colorectal Cancer, Lung Cancer, Ovarian Cancer, Prostate Cancer or Testicular Cancer Family History FAMILY HISTORY: Negative Family Psychiatric Problems, Family Respiratory Disorders, Family Cardiac Disorders, Family Gastrointestinal Problems, Family Cancer, Family Surgery or Family Anesthesia Reaction Surgical History SURGICAL: Negative Section or Organ Transplant Social History SMOKING STATUS: Smoking status: Never smoker SECOND HAND EXPOSURE: second hand exposure: No ALCOHOL: Alcohol Intake: Never HOUSING: Housing: House LIVES WITH: Lives With: Spouse Patient Portal Questionaires PHQ-9 PHQ-2 Over the last 2 weeks, how often have you been bothered by any of the following problems? 1. Little interest or pleasure in doing things: not at all PHQ-9 8. Moving or speaking so slowly that other people could have noticed? - Or the opposite - being so fidgety or restless that you have been moving around a lot more than usual: not at all Source: Developed by Drs. Luca Palomino, Ashley Bettencourt, Sachin Norris and colleagues, with an educational juan pablo from [employer]. Social History Living Situation History Housing: House Tobacco History Smoking Status: Never smoker Second Hand Smoke Exposure: No Alcohol History Alcohol Intake: Never Review of Systems Report any current symptoms Only answer those that you have currently: Past Medical History Past Medical History Have you ever been diagnosed with any of the following: Cardiology Problems Congestive Heart Failure: No Respiratory Problems Chronic Obstructive Pulmonary Disease (COPD): No Stomache/Intestinal Problems Hepatitis: No Colorectal Cancer: No Genital/Urinary Problems Renal Disease: No Reproductive Problems Breast Cancer: No Musculoskeletal Problems Bone Cancer: No Endocrine Problems Diabetes Mellitus Type 1: No Diabetes Mellitus Type 2: No Other Problems Hospitalization: No Down Syndrome: No Developmental Delay: No Shingles: No Falls: No Blood Transfusions: No Blood Transfusion Reaction: No Anesthesia Reactions: No Organ Transplant: No Chemotherapy: No Radiation Therapy: No Hyperbaric Therapy: No MRSA: No VRSA: No Vancomycin-Resistant Enterococci: No Human Immunodeficiency Virus (HIV): No Chicken Pox: No Measles: No Mumps: No Rubella (Mauritanian Measles): No Pertussis: No Clostridium Difficile: No Cervical Cancer: No Lung Cancer: No Ovarian Cancer: No History of Present Illness HPI Narrative 08/10/2024: Patient came for follow-up since discharge from the hospital. She was stating that she has been feeling fine and reported no fever, chest pain, headache or dizziness. She stated that she still is taking her antibiotics and completing course in 4 days for E. coli bacteremia found during hospital course. Patient has a CGM which showed 52% at goal of blood sugar 70-180 mg and 70% above 250 mg/dL. She has been using insulin 20 units at night and was given Gvoke pen to avoid hypoglycemia. Her blood pressure was slightly elevated therefore in addition to losartan 50 mg Coreg 3.125 mg twice daily was initiated as patient was tachycardic as well. Recommended to monitor blood pressure at least once a day. 09/09/2024: Patient was seen and examined in the clinic today. She reported that she had been having abdominal pain for couple of months and it usually occurs before her menstrual cycle. She pointed the pain to be on the left side mild in intensity and colicky in nature. Previous chart review revealed she had a pelvic ultrasound which showed follicular cyst in the left ovary. Her last menstrual period was July 12, 2024. Lasting 3 to 4 days with mild bleeding. She reported that she is late for 5 days for her menstrual period. She denied taking any control pills. She never had a Pap smear and is sexually active. She also reported that her heart rate has been getting better. She was not taking her losartan and was only taking Coreg 3.125 twice daily. She also reported to have low blood sugars which was confirmed through freestyle stone 3 recordings around 80s to 100 Mg/dl. Patient was advised to reduce her dose of insulin at night from Lantus 15 units to 12 units and decrease even more to 10 units if the next 3 days her blood sugars are still on the lower side. Refill prescription was given for sensor and losartan. She was given a referral to [facility] after [address] Pabon along with hormone test including LH, FSH, prolactin, TSH, free T4, free testosterone. Another transvaginal ultrasound was ordered to evaluate cyst size. Will follow-up with lab results. 09/16/24: Patient was seen and examined in the clinic today. She reported her blood sugar has been around 100-150. She is currently on Lantus 15 units daily. She continues to have lower abdominal pain and currently awaiting authorization for ultrasound pelvis to evaluate ovarian cyst and remelt furnace expediter referral. She reported that she does not have any headaches, chest pain or any other problem. Labs revealed LH 46.7, FSH 60.8, T41.16, TSH 0.83, prolactin 10.4. Estradiol less than 5. Will likely follow-up with gynecology referral for that. Her blood pressure was significantly elevated around 165/89. Repeat blood pressure was 158/80. Pulse 93. Patient was advised to take increased dose of losartan 100 mg once daily, added amlodipine 5 mg once daily and continue Coreg 3.125 mg twice daily. ASCVD score 62.5% with 0.5% 10-year cardiovascular risk.Therefore patient was started on atorvastatin 40 mg at bedtime. She will be followed on November 04. Repeating lipid panel on October 28, 2024. 01/12/2025: Patient was seen and examined in the clinic today. She stated that she has been feeling well and was only complaining of nausea and mild headache. Vitals were significant for high blood pressure around 173/99 heart rate 90. Afebrile and saturating well on room air. She stated that her blood sugars have been well-controlled around 110s in the morning and A1c on the application was 6.7% improved from the previous one which was 11% 3 months ago. She stated that she is currently using 10 units of long-acting insulin daily. Prior to that she was using 20 units of insulin but due to hypoglycemic episode in the night she reduced it. She was recommended to continue taking reduced dose of insulin. For her blood pressure, she was only taking amlodipine 5 mg once daily and losartan 100 mg once daily. She was notified to take her Coreg 3.125 mg twice daily which she was not taking for some reason. Prescription refill was sent to the pharmacy for Coreg 3.125 twice daily. Junior Programmer Analyst recommended to closely follow-up with them for her ovarian cyst. She was recommended to follow-up in a month. Czech interpretation services ID #[id number] were taken to talk to the patient. Review of Systems Review of Systems Systems Reviewed: All systems reviewed, normal except as documented Objective/Exam Narrative Physical exam: GENERAL APPEARANCE: AxOx4, generally well-appearing female no acute distress. HEENT: NC, AT. MMM. EOMI, clear conjunctiva, oropharynx clear. NECK: Supple without lymphadenopathy. No stiffness or restricted ROM. HEART: Regular rate with regular rhythm, normal S1/S2, no m/r/g LUNGS: CTAB, moving air well. No crackles or wheezes are heard. ABDOMEN: Soft, lower pelvic tenderness more on left side, nondistended with good bowel sounds heard. BACK: No CVAT, no obvious deformity. EXTREMITIES: Without cyanosis, clubbing or edema. NEUROLOGICAL: Grossly nonfocal. Alert and oriented, moving all 4 extremities. CN not formally tested but appear grossly intact. Observed to ambulate with normal gait. Skin: Warm and dry without any rash. Psych: Appropriate mood and affect Assessment & Plan Diagnosis / Problem List (1) GERD (gastroesophageal reflux disease): Status: Acute Qualifiers: Esophagitis presence: without esophagitis Qualified Code(s): K21.9 - Gastro-esophageal reflux disease without esophagitis Assessment & Plan: - Patient was complaining of symptoms of nausea with bloating and reflux symptoms from last 1 month. Plan: - Recommended to continue pantoprazole 40 mg once daily for 2 weeks (2) Primary hypertension: Status: Acute Assessment & Plan: - Patient reported that she has been taking amlodipine and losartan only for her blood pressure management. - She reported having headaches sometimes at home. She is not taking Coreg for some reason. - Blood pressure in the clinic was 173/99. Heart rate 90/min Plan: - Recommended to continue amlodipine 5 mg once daily, Coreg 3.125 mg twice daily and losartan 100 mg once daily -Recommended to check her blood pressure every day at least 2 times a day - Recommended to continue atorvastatin 40 mg at night (3) Diabetes: Status: Acute Qualifiers: Diabetes mellitus complication status: without complication Diabetes mellitus intermediate insulin use: with middle or intermediate school principal use Diabetes mellitus type: type 2 Qualified Code(s): E11.9 - Type 2 diabetes mellitus without complications; Z79.4 - prison (current) use of insulin Assessment & Plan: - Patient's last A1c was 11% 3 months ago has improved to 6.7% on her REVENTIVEyle stone 3 application. - Morning blood sugars have been around 110s -115 milligram per deciliter. She was running hypoglycemic overnight therefore she reduced her insulin long-acting units. Plan: - Recommended to continue insulin 10 units at night and reduce as necessary if continues to have hypoglycemic episodes - Continue to check blood sugars with freestyle stone 3 - Follow-up in a month Plan of care was discussed with attending physician, Dr. Lucas Willett MD PGY3 Office Procedures [facility] Level of Care Nursing/Assessment Patient Status: Established Patient Nursing Assessment/Reassessment: Medication Reconciliation, Update PMH in EMR and Vital Signs Coordination of Care: Complex Care and Chronic Disease 1-5, Education Complex Pt/Fam, Consent,records obtained, informed consent and Staff clarify orders Established Patient Charge Established Patient Point Assignment: 90 Established Patient Point Charge: Level 3 (80-115)
== END 2025-01-12 13:51 | disposition home or self-care (01) ==
LOC: HODAHC 13:07
PROVIDERS: PCP Student in an Organized Health Care Education/Training Program; Referring Provider Student in an Organized Health Care Education/Training Program; Supervising Provider Internal Medicine; Visit Provider Student in an Organized Health Care Education/Training Program
DX: K21.9 Gastro-esophageal reflux disease without esophagitis (principal); I10 Essential (primary) hypertension; E11.9 Type 2 diabetes mellitus without complications; Z79.4 Long term (current) use of insulin
CPT/HCPCS: 99213; G0463